=== PATIENT | male | born 1955 | race Caucasian/White ===

== ENCOUNTER 2017-06-21 13:44 | Inpatient (IN) | payer BC ==
[2017-06-21] MEDS ORDERED: HYDROmorphone 1 MG/ML Syringe IM ONE (13:56)
[2017-06-21] MEDS ORDERED: Ondansetron 4 MG/2 ML SDV IVPUSH ONE (13:56)
[2017-06-21] MEDS ORDERED: Sodium Chloride 0.9% 1,000 ML IV SCH (14:00)
[2017-06-21] MEDS ORDERED: Pantoprazole 40 MG Vial IVPUSH ONE (14:01)
--- NOTE | 2017-06-21 14:02 | EDM.PDOC ---
ED HPI GENERAL MEDICAL PROBLEM - General Chief Complaint: Abdominal Pain Stated Complaint: abdominal pain Time Seen by Provider: 06/21/17 13:51 - History of Present Illness INITIAL COMMENTS - FREE TEXT/NARRATIVE: HISTORY AND PHYSICAL: History of present illness: Patient 61-year-old white male who presents with concern abdominal pain and black and bloody stools over the last several days he has recently seen Dr. Vázquez who is going to schedule a upper endoscopy. He states the pain abdominal distention and nausea has gotten much worse. As stated previously over last several days he has had episodes of both black stools and bloody stools Review of systems: As per history of present illness and below otherwise all systems reviewed and negative. Past medical history: As per history of present illness and as reviewed below otherwise noncontributory. Surgical history: As per history of present illness and as reviewed below otherwise noncontributory. Social history: No reported history of drug or alcohol abuse. Family history: As per history of present illness and as reviewed below otherwise noncontributory. Physical exam: HEENT: Atraumatic, normocephalic, pupils reactive, significant conjunctival pallor no scleral icterus, mucous membranes moist, throat clear, neck supple, nontender, trachea midline. Lungs: Clear to auscultation, breath sounds equal bilaterally, chest nontender. Heart: S1S2, regular, negative for clicks, rubs, or JVD. Abdomen: Soft, nondistended, nontender. Negative for masses or hepatosplenomegaly. Negative for costovertebral tenderness. Pelvis: Stable nontender. Genitourinary: Deferred. Rectal: Deferred. Extremities: Atraumatic, negative for cords or calf pain. Neurovascular unremarkable. Neuro: Awake, alert, oriented. Cranial nerves II through XII unremarkable. Cerebellum unremarkable. Motor and sensory unremarkable throughout. Exam nonfocal. Diagnostics: CBC CMP PT/INR type and screen chest x-ray EKG CT abdomen and pelvis Therapeutics: Saline 1 L bolus Dilaudid 1 mg IV Zofran 4 mg IV Protonix 80 mg bolus followed by 8 mg an hour drip Impression: #1 acute GI bleed Definitive disposition and diagnosis as appropriate pending reevaluation and review of above. upper adbomen Pain Score (Numeric/FACES): 10 - Related Data Allergies Allergy/AdvReac Type Severity Reaction Status Date / Time pseudoephedrine Allergy Shaking Verified 06/21/17 13:47 [From Sudafed] Home Meds: Home Meds Omeprazole 20 mg PO BID 06/21/17 [History] Sucralfate 1 gm PO Q8HR 06/21/17 [History] ED ROS GENERAL - Review of Systems Review Of Systems: ROS reveals no pertinent complaints other than HPI. ED EXAM, GENERAL - Physical Exam Exam: See Below (See dictation) Course - Vital Signs Last Recorded V/S: Last Vital Signs Temp 36.7 C 06/21/17 13:48 Pulse 66 06/21/17 15:00 Resp 14 06/21/17 15:00 BP 123/80 06/21/17 15:00 Pulse Ox 96 06/21/17 15:00 - Orders/Labs/Meds Orders: Active Orders 24 hr Category Date Time Status EKG Documentation Completion [RC] STAT Care 06/21/17 14:03 Active EKG Documentation Completion [RC] STAT Care 06/21/17 14:03 Inactive Fecal Occult Blood Collection [RC] ASDIRECTED Care 06/21/17 14:03 Active Abdomen 1V Decubitis [CR] Stat Exams 06/21/17 14:41 Taken Abdomen Pelvis wo Cont [CT] Stat Exams 06/21/17 14:01 Taken Chest 1V Frontal [CR] Stat Exams 06/21/17 13:54 Taken Pantoprazole [ProTONIX IV] 80 mg Med 06/21/17 14:15 Active Sodium Chloride 0.9% [Normal Saline] 100 ml IV .Continuous Sodium Chloride 0.9% [Normal Saline] 1,000 ml Med 06/21/17 14:00 Active IV ASDIRECTED Medication Orders Sodium Chloride (Normal Saline) 1,000 mls @ 999 mls/hr IV ASDIRECTED JOSE D Last Admin: 06/21/17 14:01 Dose: 999 mls/hr Pantoprazole Sodium 80 mg/ (Sodium Chloride) 100 mls @ 10 mls/hr IV .Continuous JOSE D Last Admin: 06/21/17 15:00 Dose: 10 mls/hr Labs: Laboratory Tests 06/21/17 06/21/17 06/21/17 Range/Units 13:50 13:50 13:50 WBC 11.36 H (4.0-11.0) K/uL RBC 4.12 L (4.50-5.90) M/uL Hgb 11.8 L (13.0-17.0) g/dL Hct 35.0 L (38.0-50.0) % MCV 85.0 (80.0-98.0) fL MCH 28.6 (27.0-32.0) pg MCHC 33.7 (31.0-37.0) g/dL RDW Std Deviation 44.8 (28.0-62.0) fl RDW Coeff of Robb 15 (11.0-15.0) % Plt Count 274 (150-400) K/uL MPV 11.10 (7.40-12.00) fL Neut % (Auto) 76.0 (48.0-80.0) % Lymph % (Auto) 15.6 L (16.0-40.0) % [place] % (Auto) 7.8 (0.0-15.0) % Eos % (Auto) 0.4 (0.0-7.0) % Baso % (Auto) 0.2 (0.0-1.5) % Neut # (Auto) 8.6 H (1.4-5.7) K/uL Lymph # (Auto) 1.8 (0.6-2.4) K/uL [place] # (Auto) 0.9 H (0.0-0.8) K/uL Eos # (Auto) 0.0 (0.0-0.7) K/uL Baso # (Auto) 0.0 (0.0-0.1) K/uL Nucleated RBC % 0.0 /100WBC Nucleated RBCs # 0 K/uL INR 0.97 (0.86-1.11) Sodium 141 (136-146) mmol/L Potassium 4.1 (3.5-5.1) mmol/L Chloride 109 (98-110) mmol/L Carbon Dioxide 22 (21-31) mmol/L BUN 18 (6.0-23.0) mg/dL Creatinine 1.1 (0.6-1.5) mg/dL Est Cr Clr Drug Dosing 77.01 mL/min Estimated GFR (MDRD) > 60.0 ml/min Glucose 122 H (60-110) mg/dL Calcium 9.8 (8.8-10.8) mg/dL Total Bilirubin 0.6 (0.1-1.5) mg/dL AST 38 (5-40) IU/L ALT 25 (8-54) IU/L Alkaline Phosphatase 50 (40-150) Total Protein 7.4 (6.0-8.0) g/dL Albumin 4.4 (3.5-5.0) g/dL Globulin 3.0 (2.0-3.5) g/dL Albumin/Globulin Ratio 1.5 (1.3-2.8) Blood Type Antibody Screen 06/21/17 Range/Units 14:05 WBC (4.0-11.0) K/uL RBC (4.50-5.90) M/uL Hgb (13.0-17.0) g/dL Hct (38.0-50.0) % MCV (80.0-98.0) fL MCH (27.0-32.0) pg MCHC (31.0-37.0) g/dL RDW Std Deviation (28.0-62.0) fl RDW Coeff of Robb (11.0-15.0) % Plt Count (150-400) K/uL MPV (7.40-12.00) fL Neut % (Auto) (48.0-80.0) % Lymph % (Auto) (16.0-40.0) % [place] % (Auto) (0.0-15.0) % Eos % (Auto) (0.0-7.0) % Baso % (Auto) (0.0-1.5) % Neut # (Auto) (1.4-5.7) K/uL Lymph # (Auto) (0.6-2.4) K/uL [place] # (Auto) (0.0-0.8) K/uL Eos # (Auto) (0.0-0.7) K/uL Baso # (Auto) (0.0-0.1) K/uL Nucleated RBC % /100WBC Nucleated RBCs # K/uL INR (0.86-1.11) Sodium (136-146) mmol/L Potassium (3.5-5.1) mmol/L Chloride (98-110) mmol/L Carbon Dioxide (21-31) mmol/L BUN (6.0-23.0) mg/dL Creatinine (0.6-1.5) mg/dL Est Cr Clr Drug Dosing mL/min Estimated GFR (MDRD) ml/min Glucose (60-110) mg/dL Calcium (8.8-10.8) mg/dL Total Bilirubin (0.1-1.5) mg/dL AST (5-40) IU/L ALT (8-54) IU/L Alkaline Phosphatase (40-150) Total Protein (6.0-8.0) g/dL Albumin (3.5-5.0) g/dL Globulin (2.0-3.5) g/dL Albumin/Globulin Ratio (1.3-2.8) Blood Type O POSITIVE Antibody Screen NEGATIVE Meds: Medications Generic Name Dose Route Start Last Admin Trade Name Freq PRN Reason Stop Dose Admin Sodium Chloride 1,000 mls @ 999 mls/hr 06/21/17 14:00 06/21/17 14:01 Normal Saline IV 999 mls/hr ASDIRECTED JOSE D Administration Pantoprazole Sodium 80 mg/ 100 mls @ 10 mls/hr 06/21/17 14:15 06/21/17 15:00 Sodium Chloride IV 10 mls/hr .Continuous JOSE D Administration Discontinued Medications Generic Name Dose Route Start Last Admin Trade Name Freq PRN Reason Stop Dose Admin Hydromorphone HCl 1 mg 06/21/17 13:56 06/21/17 14:00 Dilaudid IM 06/21/17 13:57 1 mg ONETIME ONE Administration Ondansetron HCl 4 mg 06/21/17 13:56 06/21/17 14:00 Zofran IVPUSH 06/21/17 13:57 4 mg ONETIME ONE Administration Pantoprazole Sodium 80 mg 06/21/17 14:01 06/21/17 14:07 Protonix Iv IVPUSH 06/21/17 14:02 80 mg .BOLUS ONE Administration Departure - Departure Time of Disposition: 15:43 Disposition: Admitted As Inpatient 68 Condition: Good Clinical Impression: Abdominal pain, Small bowel obstruction, GI bleed - Discharge Information Referrals: Killian Do MD [Primary Care Provider] - Forms: ED Department Discharge - My Orders Last 24 Hours: My Active Orders 06/21/17 13:54 Chest 1V Frontal [CR] Stat 06/21/17 14:00 Sodium Chloride 0.9% [Normal Saline] 1,000 ml IV ASDIRECTED 06/21/17 14:01 Abdomen Pelvis wo Cont [CT] Stat 06/21/17 14:03 EKG Documentation Completion [RC] STAT EKG Documentation Completion [RC] STAT Fecal Occult Blood Collection [RC] ASDIRECTED 06/21/17 14:15 Pantoprazole [ProTONIX IV] 80 mg Sodium Chloride 0.9% [Normal Saline] 100 ml IV .Continuous 06/21/17 14:41 Abdomen 1V Decubitis [CR] Stat 06/21/17 15:40 Admission Status [Patient Status] [ADT] Stat - Assessment/Plan Last 24 Hours: My Active Orders 06/21/17 13:54 Chest 1V Frontal [CR] Stat 06/21/17 14:00 Sodium Chloride 0.9% [Normal Saline] 1,000 ml IV ASDIRECTED 06/21/17 14:01 Abdomen Pelvis wo Cont [CT] Stat 06/21/17 14:03 EKG Documentation Completion [RC] STAT EKG Documentation Completion [RC] STAT Fecal Occult Blood Collection [RC] ASDIRECTED 06/21/17 14:15 Pantoprazole [ProTONIX IV] 80 mg Sodium Chloride 0.9% [Normal Saline] 100 ml IV .Continuous 06/21/17 14:41 Abdomen 1V Decubitis [CR] Stat 06/21/17 15:40 Admission Status [Patient Status] [ADT] Stat
[2017-06-21] MEDS ORDERED: Pantoprazole 80 MG in Sodium Chloride 0.9% 100 ML IV SCH (14:15)
[2017-06-21 14:30] LABS: CHLORIDE,CL 109 mmol/L (98-110); SODIUM,NA 141 mmol/L (136-146)
[2017-06-21] MEDS ORDERED: Ondansetron 4 MG/2 ML SDV IVPUSH PRN (16:26)
[2017-06-21] MEDS ORDERED: HYDROmorphone 2 MG/ML Syringe IVPUSH PRN (16:26)
--- NOTE | 2017-06-21 16:43 | PCM.HP ---
H&P History of Present Illness - General Date of Service: 06/21/17 Admit Problem/Dx: SBO, abdominal pain Source of Information: Patient, Family ( and 2 daughters at bedside. ) History Limitations: Reports: No Limitations - History of Present Illness Initial Comments - Free Text/Narative: This 61 year old male with pmh of Miguel fundoplication 20 years ago otherwise healthy presented to the ED with one day history of abdominal pain and nausea. He reports he had black tarry diarrhea 1 week ago, he was seen by Dr. Do, his PCP, who had him test his stool, 2x positive for blood 1 x negative with an at home kit, his also reports he was noted to be anemic at his appointment. He was referred to Dr. Vázquez, General surgery, for EGD/ colonoscopy which he saw him yesterday and had none of these new concerns and was set up for the for endoscopy. He reports this pain to his upper abdomen started last evening, with a bloated feeling. He denied nausea or vomiting and had a normal BM yesterday. Today he went golfing at the simulator and just felt off along with abdominal pain and bloating. He left after 9 holes and got in his car and reported the worst sharp abdominal pain of his life. He got home and his called Dr. Do who urged him to be seen in the ED. In the ED, slight leukocytosis noted, 11,360, hgb 11.8, HCT 35. BMP WNL. CT of his abdomen/pelvis was obtained and revealed "Distal esophagus is distended and filled with fluid. There is post operative changes of the GE junction consistent with Miguel fundoplication. The stomach is dilated. There is a dilated small bowel with air and fluid. Frothy stool-like contents are seen in the small bowel in the right lower quadrant with a transition point Distal small bowel loops are tiny in caliber. The appendix is normal. There is minimal stool and gas throughout the remainder of the colon. There is some mild hazy density at the small bowel mesentery. There is no free air in abdomen. There is no free fluid the pelvis." NG was placed in the ED and in good position. He was give Dilaudid and zofran with good results. He became nauseated for the first time in the ED. Dr Quintanilla aware and consulted on patient. He will be admitted inpatient for SBO. I did call and update Dr. Vázquez, who was already update by Dr. Quintanilla. So he is aware of admission for SBO. upper adbomen Pain Score (Numeric/FACES): 4 - Related Data Allergies/Adverse Reactions: Allergies Allergy/AdvReac Type Severity Reaction Status Date / Time pseudoephedrine Allergy Shaking Verified 06/21/17 13:47 [From Sudafed] Home Medications: Home Meds Omeprazole 20 mg PO BID 06/21/17 [History] Sucralfate 1 gm PO Q8HR 06/21/17 [History] Past Medical History HEENT History: Reports: None Cardiovascular History: Reports: None. Denies: Afib, Blood Clots/VTE/DVT, CAD, Hypertension, [place] Respiratory History: Reports: None. Denies: Asthma, COPD, PE Gastrointestinal History: Reports: GERD (hx 20 years ago of Miguel procedure.) Genitourinary History: Reports: None. Denies: Chronic Renal Insuffiency Musculoskeletal History: Reports: None (back), Arthritis Neurological History: Reports: None Psychiatric History: Reports: None Endocrine/Metabolic History: Reports: Obesity/BMI 30+. Denies: Diabetes, Type II, Hypothyroidism Hematologic History: Reports: None Immunologic History: Reports: None Oncologic (Cancer) History: Reports: None Dermatologic History: Reports: None - Past Surgical History Head Surgeries/Procedures: Reports: None HEENT Surgical History: Reports: None Cardiovascular Surgical History: Reports: None Respiratory Surgical History: Reports: None GI Surgical History: Reports: Miguel Fundoplication (20 years ago.) Male Surgical History: Reports: None Endocrine Surgical History: Reports: None Neurological Surgical History: Reports: None Musculoskeletal Surgical History: Reports: None Oncologic Surgical History: Reports: None Dermatological Surgical History: Reports: None Social & Family History - Family History Family Medical History: Noncontributory - Tobacco Use Smoking Status *Q: Former Smoker (quit 15 + years ago) - Caffeine Use Caffeine Use: Reports: None - Alcohol Use Alcohol Use Frequency: Rarely - Recreational Drug Use Recreational Drug Use: No - Living Situation & Occupation Living situation: Reports: , with Spouse Occupation: Employed H&P Review of Systems - Review of Systems: Review Of Systems: See Below General: Reports: Diaphoresis (with severe pain). Denies: Fever, Chills, Malaise HEENT: Reports: No Symptoms. Denies: Headaches, Sore Throat, Vertigo, Visual Changes Pulmonary: Reports: No Symptoms. Denies: Shortness of Breath, Cough, Sputum Cardiovascular: Reports: No Symptoms. Denies: Chest Pain, Palpitations, Edema, Lightheadedness, Blood Pressure Problem Gastrointestinal: Reports: Abdominal Pain (epigastric and RUQ), Black Stool, Distension, Nausea. Denies: Flatus, Vomiting Genitourinary: Reports: No Symptoms. Denies: Dysuria, Frequency, Burning, Pain Psychiatric: Reports: No Symptoms. Denies: Confusion Hematologic/Lymphatic: Reports: Anemia (just recently found) Immunologic: Reports: No Symptoms Exam - Exam Exam: See Below - Vital Signs Vital Signs: Last Vital Signs Temp 98.0 F 06/21/17 13:48 Pulse 78 06/21/17 15:48 Resp 18 06/21/17 15:48 BP 115/79 06/21/17 15:48 Pulse Ox 100 06/21/17 15:48 Weight: 105.233 kg - Exam General: Alert, Oriented, Cooperative, Other (pale in appearance) HEENT: Conjunctiva Clear, Hearing Intact, Nares Patent, Posterior Pharynx Clear , Other (NG inserted and secured in R nare). No: Mucosa Moist & [place] (dry) Neck: Supple Lungs: Clear to Auscultation, Normal Respiratory Effort Cardiovascular: Regular Rate, Regular Rhythm, Normal S1, Normal S2 GI/Abdominal Exam: Soft, No Mass, Distended, Tender (epigastric and RUQ), Other (pink to bloody drainage noted in nearly inserted NG tube. ). No: Normal Bowel Sounds (hypoactive) Back Exam: Normal Inspection, Full Range of Motion, NT Extremities: Normal Inspection, Normal Range of Motion, Non-Tender, No Pedal Edema, Normal Capillary Refill Skin: Warm, Dry, Intact Neuro Extensive - Mental Status: Alert, Oriented x3, Normal Mood/Affect, Normal Cognition, Memory Intact Neuro Extensive - Motor, Sensory, Reflexes: CN II-XII Intact Psychiatric: Alert, Normal Affect, Normal Mood - Patient Data Result Diagrams: 06/21/17 13:50 06/21/17 13:50 *Q Meaningful Use (ADM) - VTE *Q VTE Criteria *Q: - Stroke *Q Stroke Criteria *Q: - AMI *Q AMI Criteria *Q: - Problem List (1) Small bowel obstruction SNOMED Code(s): 793322870 ICD Code: K56.609 - UNSP INTESTNL OBST, UNSP TO PARTIAL VERSUS COMPLETE OBST Status: Acute Current Visit: Yes (2) Abdominal pain SNOMED Code(s): 71622831 ICD Code: R10.9 - UNSPECIFIED ABDOMINAL PAIN Status: Acute Current Visit : Yes Qualifiers: Abdominal location: epigastric Qualified Code(s): R10.13 - Epigastric pain (3) GI bleed SNOMED Code(s): 95321126 ICD Code: K92.2 - GASTROINTESTINAL HEMORRHAGE, UNSPECIFIED Status: Acute Current Visit: Yes (4) History of Miguel fundoplication SNOMED Code(s): 140898264 ICD Code: Z98.890 - OTHER SPECIFIED POSTPROCEDURAL STATES Status: Chronic Current Visit: Yes Problem List Initiated/Reviewed/Updated: Yes Orders Last 24hrs: Active Orders 24 hr Category Date Time Status Ambulate [RC] ASDIRECTED Care 06/21/17 16:26 Active Antiembolic Devices [RC] PER UNIT ROUTINE Care 06/21/17 16:28 Active Nasogastric Tube Management [Gastrointestinal Tube Mgmt Care 06/21/17 16:35 Ordered ] [RC] ASDIRECTED Notify Provider Consults [RC] ASDIRECTED Care 06/21/17 16:31 Active Oxygen Therapy [RC] PRN Care 06/21/17 16:26 Active Up With Assistance [RC] ASDIRECTED Care 06/21/17 16:26 Active VTE/DVT Education [RC] PER UNIT ROUTINE Care 06/21/17 16:26 Active Vital Signs [RC] Q4H Care 06/21/17 16:26 Active Consult to Physician [CONS] Routine Cons 06/21/17 16:26 Active Nothing Per Oral Diet [DIET] Diet 06/22/17 Breakfast Active BASIC METABOLIC PANEL,BMP [CHEM] AM Lab 06/22/17 05:11 Ordered BASIC METABOLIC PANEL,BMP [CHEM] AM Lab 06/23/17 05:11 Ordered BASIC METABOLIC PANEL,BMP [CHEM] AM Lab 06/24/17 05:11 Ordered BASIC METABOLIC PANEL,BMP [CHEM] AM Lab 06/25/17 05:11 Ordered CBC WITH AUTO DIFF [HEME] AM Lab 06/22/17 05:11 Ordered CBC WITH AUTO DIFF [HEME] AM Lab 06/23/17 05:11 Ordered CBC WITH AUTO DIFF [HEME] AM Lab 06/24/17 05:11 Ordered CBC WITH AUTO DIFF [HEME] AM Lab 06/25/17 05:11 Ordered MAGNESIUM [CHEM] AM Lab 06/22/17 05:11 Ordered MAGNESIUM [CHEM] AM Lab 06/23/17 05:11 Ordered MAGNESIUM [CHEM] AM Lab 06/24/17 05:11 Ordered MAGNESIUM [CHEM] AM Lab 06/25/17 05:11 Ordered HYDROmorphone [Dilaudid] Med 06/21/17 16:35 Active 1 mg IVPUSH Q3H PRN Ondansetron [Zofran] Med 06/21/17 16:26 Active 4 mg IVPUSH Q4H PRN Sodium Chloride 0.9% [Normal Saline] 1,000 ml Med 06/21/17 16:30 Active IV ASDIRECTED Sequential Compression Device [OM.PC] Per Unit Routine Oth 06/21/17 16:27 Ordered Resuscitation Status Routine Resus Stat 06/21/17 16:26 Ordered Medication Orders Hydromorphone HCl (Dilaudid) 1 mg IVPUSH Q3H PRN PRN Reason: Pain (severe 7-10) Pantoprazole Sodium 80 mg/ (Sodium Chloride) 100 mls @ 10 mls/hr IV .Continuous JOSE D Last Admin: 06/21/17 15:00 Dose: 10 mls/hr Sodium Chloride (Normal Saline) 1,000 mls @ 125 mls/hr IV ASDIRECTED JOSE D Ondansetron HCl (Zofran) 4 mg IVPUSH Q4H PRN PRN Reason: Nausea Assessment/Plan Comment:: This 61 year old male admitted with SBO 1. SBO: Conservative therapy for now, with close monitoring. NG in place, will keep at LIWS for now. NS 125, bowel rest. Anti-emetics and analgesia ordered PRN. Surgery consulted, Dr Quintanilla will see this evening. Will follow her recommendations. 2. GI bleed: Continue Protonix gtt at this time. Will obtain hemoccult. VTE prophyalxis: SCDs and ambulation only, due to current GI bleed. Dispo: 3-4 days
[2017-06-21] MEDS: HYDROmorphone 1 MG/ML Syringe IVPUSH PRN ×2 (16:52→21:15)
[2017-06-21] MEDS: Sodium Chloride 0.9% 1,000 ML IV SCH (16:59)
--- NOTE | 2017-06-21 18:32 | CR ---
EXAM DATE: 06/21/17 PATIENT'S AGE: 61 Patient: CINTHYA QUARLES Facility: [place], [place] Site . Site : 1955 Study: XRay Chest [id number]/22/2017 2:30:01 PM Ordering Physician: Mandi Duron Final Report: INDICATIONS: Pale. Checking air/fluid levels. TECHNIQUE: Chest 1 AP view. COMPARISON: None FINDINGS: No pneumothorax or pleural effusion. Mild interstitial and nodular opacities at the right lung base. The lungs are otherwise clear. Mild enlargement of the cardiac silhouette. Mediastinal contours are otherwise within normal limits. No definite pulmonary edema. Multiple surgical clips noted in the left upper quadrant. Prominent gas-filled bowel, of uncertain etiology and significance in the visualized upper abdomen. Bony thorax is unremarkable. IMPRESSION: Interstitial and nodular opacities at the right lung base may represent acute infectious/inflammatory change in the appropriate clinical setting. These could also be chronic. No comparison study available. Prominent gas-filled bowel in the visualized upper abdomen, of uncertain significance. Dictated by Meir Alberto MD @ 06/21/2017 2:45:31 PM Dictated by: Meir Alberto MD @ 06/21/2017 14:46:02 (Electronic Signature) Report Signed by Proxy. [facility]ITAL[facility]
--- NOTE | 2017-06-21 18:34 | CT ---
EXAM DATE: 06/21/17 PATIENT'S AGE: 61 Patient: CINTHYA QUARLES Facility: [place], [place] Site . Site : 1955 Study: CT Abdomen/Pelvis [id number]/22/[id number] 2:51:04 PM Ordering Physician: Mandi Duron Final Report: HISTORY: Upper abdominal pain. Bloody stool. TECHNIQUE: The abdomen and pelvis were scanned using helical technique at 3 mm intervals without IV contrast. Sagittal and coronal reconstructions were performed. FINDINGS: Lung bases: There is interlobular septal thickening in the right lower lobe with a trace right pleural effusion. Liver and gallbladder: The unenhanced liver is homogeneous. No calcified gallstones. Spleen, pancreas and adrenal glands: Unremarkable. Kidneys and bladder: No calcified urolithiasis or hydronephrosis. The bladder is incompletely distended and unremarkable. Retroperitoneum and lymph nodes: The abdominal aorta is normal in caliber. No pathologic periaortic adenopathy seen. GI tract: Distal esophagus is distended and filled with fluid. There is post operative changes of the GE junction consistent with Miguel fundoplication. The stomach is dilated. There is a dilated small bowel with air and fluid. Frothy stool-like contents are seen in the small bowel in the right lower quadrant with a transition point on image 127. Distal small bowel loops are tiny in caliber. The appendix is normal. There is minimal stool and gas throughout the remainder of the colon. There is some mild hazy density at the small bowel mesentery. There is no free air in abdomen. There is no free fluid the pelvis. Pelvic organ: Prostate is normal. Osseous structures: Vertebral body heights maintained within the lumbar spine. No suspicious lytic or blastic lesions are seen. IMPRESSION: 1. Interlobular septal thickening right lower lobe suggesting asymmetric pulmonary edema with trace right pleural effusion. 2. Postoperative changes the GE junction consistent with Miguel fundoplication. 3. Dilated stomach and small bowel with a transition point in the right lower quadrant consistent with small bowel obstruction. There is a small amount of mesenteric edema present. 4. Normal appendix. No evidence of diverticulitis. Dictated by Pilar Hernandez MD @ 06/21/2017 3:10:20 PM Dictated by: Pilar Hernandez MD @ 06/21/2017 15:11:29 (Electronic Signature) Report Signed by Proxy. [facility]
--- NOTE | 2017-06-21 18:35 | CR ---
EXAM DATE: 06/21/17 PATIENT'S AGE: 61 Patient: CINTHYA QUARLES Facility: [place], [place] Site . Site : 1955 Study: XRay Abdomen LEFT LAT DECUB [id number]/22/[id number] 3:05:25 PM Ordering Physician: Mandi Duron Final Report: Indication: Abdominal pain. GI bleed. Technique: Abdomen, 2 left lateral decubitus views. Comparison: CT abdomen and pelvis 10/20/2016. Findings: Multiple dilated fluid-filled small bowel loops with associated air-fluid levels , consistent with obstruction. No free intraperitoneal gas. Multiple surgical clips in the upper abdomen. The soft tissues elsewhere as imaged are unremarkable. Impression: Small bowel obstruction. No free intraperitoneal gas. Dictated by Meir Alberto MD @ 06/21/2017 3:25:06 PM Dictated by: Meir Alberto MD @ 06/21/2017 15:25:19 (Electronic Signature) Report Signed by Proxy. [facility]
--- NOTE | 2017-06-21 18:36 | CR ---
EXAM DATE: 06/21/17 PATIENT'S AGE: 61 Patient: CINTHYA QUARLES Facility: [place], [place] Site . Site : 1955 Study: XRay Abdomen [id number]/22/2017 4:09:40 PM Ordering Physician: Mandi Duron Final Report: HISTORY: NG tube placement. FINDINGS: A single portable radiograph of the lower left chest and upper abdomen demonstrates an NG tube with the tip beyond the GE junction and in the proximal stomach. Surgical clips are seen at the epigastrium and right upper quadrant. There is gaseous distention of stomach and small bowel. IMPRESSION: NG tube in place with the tip distal to the GE junction and in the proximal stomach. Dictated by Pilar Hernandez MD @ 06/21/2017 4:26:04 PM Dictated by: Pilar Hernandez MD @ 06/21/2017 16:26:12 (Electronic Signature) Report Signed by Proxy. [facility]
--- NOTE | 2017-06-21 20:23 | PCM.CONS ---
H&P History of Present Illness - General Date of Service: 06/21/17 Admit Problem/Dx: SBO, abdominal pain Source of Information: Patient History Limitations: Reports: No Limitations - History of Present Illness Initial Comments - Free Text/Narative: Patient is a 61 year old male who presents with a small bowel obstruction. He developed melena earlier this month and was found to be mildly anemia. He was seen by Dr. Vázquez Jun 20 and scheduled for a diagnostic EGD and colonoscopy. He woke up the next morning and developed sharp abdominal pain and distension. He had a BM that morning and was passing gas until he presented to the ED. He denies melena with the last several BMs. Work up revealed slight anemia and leukocytosis. A CT of the abdomen revealed a small bowel obstruction with distension of the stomach and proximal bowel. His history is significant for a Lily Fundoplication and he cannot burp. An NG was placed and the patient 's pain and distension improved greatly. Overnight he has had a BM and continues to be passing gas. upper adbomen Pain Score (Numeric/FACES): 4 - Related Data Allergies/Adverse Reactions: Allergies Allergy/AdvReac Type Severity Reaction Status Date / Time pseudoephedrine Allergy Shaking Verified 06/21/17 13:47 [From [facility]] Home Medications: Home Meds Omeprazole 40 mg PO DAILY 06/21/17 [History] Sucralfate 1 gm PO Q8HR 06/21/17 [History] Past Medical History HEENT History: Reports: None Cardiovascular History: Reports: None. Denies: Afib, Blood Clots/VTE/DVT, CAD, Hypertension, [place] Respiratory History: Reports: None. Denies: Asthma, COPD, PE Gastrointestinal History: Reports: GERD (hx 20 years ago of Lily procedure.) Genitourinary History: Reports: None. Denies: Chronic Renal Insuffiency Musculoskeletal History: Reports: None (back), Arthritis Neurological History: Reports: None Psychiatric History: Reports: None Endocrine/Metabolic History: Reports: Obesity/BMI 30+. Denies: Diabetes, Type II, Hypothyroidism Hematologic History: Reports: None Immunologic History: Reports: None Oncologic (Cancer) History: Reports: None Dermatologic History: Reports: None - Past Surgical History Head Surgeries/Procedures: Reports: None HEENT Surgical History: Reports: None Cardiovascular Surgical History: Reports: None Respiratory Surgical History: Reports: None GI Surgical History: Reports: Lily Fundoplication (20 years ago.) Male Surgical History: Reports: None Endocrine Surgical History: Reports: None Neurological Surgical History: Reports: None Musculoskeletal Surgical History: Reports: None Oncologic Surgical History: Reports: None Dermatological Surgical History: Reports: None Social & Family History - Family History Family Medical History: Noncontributory - Tobacco Use Smoking Status *Q: Former Smoker (quit 15 + years ago) Second Hand Smoke Exposure: No - Caffeine Use Caffeine Use: Reports: None - Recreational Drug Use Recreational Drug Use: No - Living Situation & Occupation Living situation: Reports: , with Spouse Occupation: Employed H&P Review of Systems - Review of Systems: Review Of Systems: ROS reveals no pertinent complaints other than HPI. Exam - Exam Exam: See Below - Vital Signs Vital Signs: Last Vital Signs Temp 36.2 C 06/21/17 16:50 Pulse 89 06/21/17 16:50 Resp 18 06/21/17 16:50 BP 112/68 06/21/17 16:50 Pulse Ox 99 06/21/17 16:50 Weight: 105.233 kg - Exam Quality Assessment: Supplemental Oxygen General: Alert, Oriented HEENT: Conjunctiva Clear, EACs Clear Neck: Supple, Trachea Midline Lungs: Clear to Auscultation, Normal Respiratory Effort Cardiovascular: Regular Rate, Regular Rhythm GI/Abdominal Exam: Soft, Non-Tender, No Distention, No Mass Back Exam: Normal Inspection, Full Range of Motion Extremities: Normal Inspection, Normal Range of Motion, Non-Tender - Patient Data Lab Results Last 24 hrs: Laboratory Results - last 24 hr 06/21/17 Range/Units 17:40 Lactate 1.1 (0.20-2.00) mmol/L Result Diagrams: 06/22/17 05:48 06/22/17 05:48 Consult PN Assessment/Plan (1) Abdominal pain SNOMED Code(s): 02095844 Code(s): R10.9 - UNSPECIFIED ABDOMINAL PAIN Current Visit: Yes Qualifiers: Abdominal location: epigastric Qualified Code(s): R10.13 - Epigastric pain (2) GI bleed SNOMED Code(s): 56984673 Code(s): K92.2 - GASTROINTESTINAL HEMORRHAGE, UNSPECIFIED Current Visit: Yes (3) Small bowel obstruction SNOMED Code(s): 153806735 Code(s): K56.609 - UNSP INTESTNL OBST, UNSP TO PARTIAL VERSUS COMPLETE OBST Current Visit: Yes (4) History of Lily fundoplication SNOMED Code(s): 730227751 Code(s): Z98.890 - OTHER SPECIFIED POSTPROCEDURAL STATES Current Visit: Yes Problem List Initiated/Reviewed/Updated: Yes Plan: He appears to have improved significantly overnight. The patient most likely had a partial small bowel obstruction, but due to his lily fundoplication he was unable to belch or vomit. Now that he has been decompressed he is doing much better. Dr. Vázquez came by and visited with the patient as well this morning. He is scheduled this next week for diagnostic scopes and we agreed that he should proceed with this. Plan: -Clamp NG this morning. Gave patient water to drink. If he tolerates this then NG can be pulled in 2 hours. -If NG is pulled advance diet as tolerated. Will sign off at this time. Please call with any questions or concerns. Follow up with Dr. Vázquez during scopes this week.
[2017-06-22] MEDS: Sodium Chloride 0.9% 1,000 ML IV SCH ×2 (00:28→08:25)
[2017-06-22] MEDS: Pantoprazole 80 MG in Sodium Chloride 0.9% 100 ML IV SCH ×2 (04:32→15:38)
[2017-06-22 06:33] LABS: CHLORIDE,CL 114 mmol/L (98-110); SODIUM,NA 143 mmol/L (136-146)
--- NOTE | 2017-06-22 07:30 | PCM.PN ---
- General Info Date of Service: 06/22/17 Admission Dx/Problem (Free Text): SBO, abdominal pain Subjective Update: Patient feeling much better this am. Has been passing large amounts of gas this morning and did have a bowl movement. Denies any pain or blood stool. Sleep well last night. Strong appetite. Denies chest pain, palpitations. Functional Status: Reports: Pain Controlled - Review of Systems General: Denies: Fever, Weakness, Fatigue, Malaise HEENT: Denies: Dysphasia, Headaches, Visual Changes Pulmonary: Denies: Shortness of Breath, Hemoptysis Cardiovascular: Denies: Chest Pain, Palpitations, Edema Gastrointestinal: Reports: Flatus. Denies: Abdominal Pain, Hematochezia, Melena , Nausea, Vomiting Genitourinary: Denies: Dysuria, Hematuria Musculoskeletal: Denies: Neck Pain, Leg Pain Skin: Denies: Cyanosis Neurological: Denies: Confusion, Dizziness, Headache Psychiatric: Denies: Confusion - Patient Data Vitals - Most Recent: Last Vital Signs Temp 97.1 F 06/22/17 04:00 Pulse 67 06/22/17 04:00 Resp 18 06/22/17 04:00 BP 116/65 06/22/17 04:00 Pulse Ox 95 06/22/17 04:00 Weight - Most Recent: 105.233 kg I&O - Last 24 Hours: Intake & Output 06/21/17 06/22/17 06/22/17 22:59 06:59 14:59 Intake Total 1487 Output Total 850 Balance 637 Lab Results Last 24 Hours: Laboratory Results - last 24 hr 06/21/17 06/22/17 06/22/17 Range/Units 17:40 05:48 05:48 WBC 3.75 L (4.0-11.0) K/uL RBC 3.24 L (4.50-5.90) M/uL Hgb 9.0 L (13.0-17.0) g/dL Hct 28.0 L (38.0-50.0) % MCV 86.4 (80.0-98.0) fL MCH 27.8 (27.0-32.0) pg MCHC 32.1 (31.0-37.0) g/dL RDW Std Deviation 46.1 (28.0-62.0) fl RDW Coeff of Robb 15 (11.0-15.0) % Plt Count 186 (150-400) K/uL MPV 10.90 (7.40-12.00) fL Neut % (Auto) 65.8 (48.0-80.0) % Lymph % (Auto) 19.5 (16.0-40.0) % [place] % (Auto) 12.5 (0.0-15.0) % Eos % (Auto) 1.9 (0.0-7.0) % Baso % (Auto) 0.3 (0.0-1.5) % Neut # (Auto) 2.5 (1.4-5.7) K/uL Lymph # (Auto) 0.7 (0.6-2.4) K/uL [place] # (Auto) 0.5 (0.0-0.8) K/uL Eos # (Auto) 0.1 (0.0-0.7) K/uL Baso # (Auto) 0.0 (0.0-0.1) K/uL Nucleated RBC % 0.0 /100WBC Nucleated RBCs # 0 K/uL Lactate 1.1 (0.20-2.00) mmol/L Sodium 143 (136-146) mmol/L Potassium 3.8 (3.5-5.1) mmol/L Chloride 114 H (98-110) mmol/L Carbon Dioxide 21 (21-31) mmol/L BUN 19 (6.0-23.0) mg/dL Creatinine 0.9 (0.6-1.5) mg/dL Est Cr Clr Drug Dosing 94.13 mL/min Estimated GFR (MDRD) > 60.0 ml/min Glucose 103 (60-110) mg/dL Calcium 7.8 L (8.8-10.8) mg/dL Magnesium 1.5 (1.5-2.3) mEq/L Carlos Results Last 24 Hours: Microbiology 06/22/17 03:30 Stool Occult Blood (CARLOS) - Final Stool / Feces NEGATIVE OCCULT BLOOD Med Orders - Current: Current Medications Hydromorphone HCl (Dilaudid) 1 mg IVPUSH Q3H PRN PRN Reason: Pain (severe 7-10) Last Admin: 06/21/17 21:15 Dose: 1 mg Sodium Chloride (Normal Saline) 1,000 mls @ 125 mls/hr IV ASDIRECTED COUNTS INCLUDE 234 BEDS AT THE [facility] Last Admin: 06/22/17 00:28 Dose: 125 mls/hr Pantoprazole Sodium 80 mg/ (Sodium Chloride) 100 mls @ 10 mls/hr IV Q10H JOSE D Last Admin: 06/22/17 04:32 Dose: 10 mls/hr Ondansetron HCl (Zofran) 4 mg IVPUSH Q4H PRN PRN Reason: Nausea Discontinued Medications Hydromorphone HCl (Dilaudid) 1 mg IM ONETIME ONE Stop: 06/21/17 13:57 Last Admin: 06/21/17 14:00 Dose: 1 mg Hydromorphone HCl (Dilaudid) 1 mg IVPUSH Q3H PRN PRN Reason: Pain (severe 7-10) Sodium Chloride (Normal Saline) 1,000 mls @ 999 mls/hr IV ASDIRECTED COUNTS INCLUDE 234 BEDS AT THE [facility] Last Admin: 06/21/17 14:01 Dose: 999 mls/hr Pantoprazole Sodium 80 mg/ (Sodium Chloride) 100 mls @ 10 mls/hr IV .Continuous COUNTS INCLUDE 234 BEDS AT THE [facility] Last Admin: 06/21/17 15:00 Dose: 10 mls/hr Ondansetron HCl (Zofran) 4 mg IVPUSH ONETIME ONE Stop: 06/21/17 13:57 Last Admin: 06/21/17 14:00 Dose: 4 mg Pantoprazole Sodium (Protonix Iv) 80 mg IVPUSH .BOLUS ONE Stop: 06/21/17 14:02 Last Admin: 06/21/17 14:07 Dose: 80 mg - Exam Quality Assessment: DVT Prophylaxis General: Alert, Oriented, Cooperative, No Acute Distress HEENT: Pupils Equal, Pupils Reactive, EOMI, Mucous Membr. Moist/Broussard Neck: Supple, Trachea Midline Lungs: Clear to Auscultation, Normal Respiratory Effort. No: Crackles, Wheezing Cardiovascular: Regular Rate, Regular Rhythm, No Murmurs GI/Abdominal Exam: Normal Bowel Sounds, Soft, Non-Tender, No Organomegaly, No Distention. No: Guarding, Rigid, Rebound, Tender Extremities: Normal Inspection, Non-Tender, No Pedal Edema, Normal Capillary Refill Peripheral Pulses: 2+: Radial (L), Radial (R), Posterior Tibial (L), Posterior Tibial (R), Dorsalis Pedis (L), Dorsalis Pedis (R) Skin: Warm, Dry, Intact Wound/Incisions: Healing Well Neurological: No New Focal Deficit Psy/Mental Status: Alert, Normal Affect, Normal Mood - Problem List & Annotations (1) Abdominal pain SNOMED Code(s): 26095909 Code(s): R10.9 - UNSPECIFIED ABDOMINAL PAIN Status: Resolved Priority: High Current Visit: Yes Qualifiers: Abdominal location: epigastric Qualified Code(s): R10.13 - Epigastric pain (2) GI bleed SNOMED Code(s): 47912271 Code(s): K92.2 - GASTROINTESTINAL HEMORRHAGE, UNSPECIFIED Status: Resolved Priority: High Current Visit: Yes Qualifiers: GI bleed type/associated pathology: melena Qualified Code(s): K92.1 - Melena (3) Small bowel obstruction SNOMED Code(s): 051165516 Code(s): K56.609 - UNSP INTESTNL OBST, UNSP TO PARTIAL VERSUS COMPLETE OBST Status: Resolved Priority: High Current Visit: Yes (4) History of Miguel fundoplication SNOMED Code(s): 234677181 Code(s): Z98.890 - OTHER SPECIFIED POSTPROCEDURAL STATES Status: Chronic Priority: Medium Current Visit: Yes - Problem List Review Problem List Initiated/Reviewed/Updated: Yes - My Orders Last 24 Hours: My Active Orders 06/22/17 04:30 Pantoprazole [ProTONIX IV] 80 mg Sodium Chloride 0.9% [Normal Saline] 100 ml IV Q10H - Plan Plan:: 61 year old male admitted 06/21/17 for SBO with no significant pmh. 1. SBO: Abdomin soft and notender this am. Passing gas and did have one bowel movement this am. Surgery has seen patient and clamped NG tube. Will start clear liquids this am. If patient tolerates will remove NG and progress diet. If still doing well may be discharged home tonight with scheduled follow-up with Dr. Vázquez. 2. GI bleed: Hemacult was negative but recently had positive will Continue Protonix gtt at this time. VTE prophyalxis: SCDs and ambulation only, due to current GI bleed. Dispo: Possible this evening or tomorrow if continues to progress.
--- NOTE | 2017-06-22 11:45 | PCM.PN ---
- General Info Date of Service: 06/22/17 - Patient Data Vitals - Most Recent: Last Vital Signs Temp 98.1 F 06/22/17 08:00 Pulse 76 06/22/17 08:00 Resp 18 06/22/17 08:00 BP 102/67 06/22/17 08:00 Pulse Ox 76 L 06/22/17 08:00 Weight - Most Recent: 105.233 kg I&O - Last 24 Hours: Intake & Output 06/21/17 06/22/17 06/22/17 22:59 06:59 14:59 Intake Total 1487 Output Total 850 Balance 637 Lab Results Last 24 Hours: Laboratory Results - last 24 hr 06/21/17 06/22/17 06/22/17 Range/Units 17:40 05:48 05:48 WBC 3.75 L (4.0-11.0) K/uL RBC 3.24 L (4.50-5.90) M/uL Hgb 9.0 L (13.0-17.0) g/dL Hct 28.0 L (38.0-50.0) % MCV 86.4 (80.0-98.0) fL MCH 27.8 (27.0-32.0) pg MCHC 32.1 (31.0-37.0) g/dL RDW Std Deviation 46.1 (28.0-62.0) fl RDW Coeff of Robb 15 (11.0-15.0) % Plt Count 186 (150-400) K/uL MPV 10.90 (7.40-12.00) fL Neut % (Auto) 65.8 (48.0-80.0) % Lymph % (Auto) 19.5 (16.0-40.0) % [place] % (Auto) 12.5 (0.0-15.0) % Eos % (Auto) 1.9 (0.0-7.0) % Baso % (Auto) 0.3 (0.0-1.5) % Neut # (Auto) 2.5 (1.4-5.7) K/uL Lymph # (Auto) 0.7 (0.6-2.4) K/uL [place] # (Auto) 0.5 (0.0-0.8) K/uL Eos # (Auto) 0.1 (0.0-0.7) K/uL Baso # (Auto) 0.0 (0.0-0.1) K/uL Nucleated RBC % 0.0 /100WBC Nucleated RBCs # 0 K/uL Lactate 1.1 (0.20-2.00) mmol/L Sodium 143 (136-146) mmol/L Potassium 3.8 (3.5-5.1) mmol/L Chloride 114 H (98-110) mmol/L Carbon Dioxide 21 (21-31) mmol/L BUN 19 (6.0-23.0) mg/dL Creatinine 0.9 (0.6-1.5) mg/dL Est Cr Clr Drug Dosing 94.13 mL/min Estimated GFR (MDRD) > 60.0 ml/min Glucose 103 (60-110) mg/dL Calcium 7.8 L (8.8-10.8) mg/dL Magnesium 1.5 (1.5-2.3) mEq/L Carlos Results Last 24 Hours: Microbiology 06/22/17 03:30 Stool Occult Blood (CARLOS) - Final Stool / Feces NEGATIVE OCCULT BLOOD Med Orders - Current: Current Medications Hydromorphone HCl (Dilaudid) 1 mg IVPUSH Q3H PRN PRN Reason: Pain (severe 7-10) Last Admin: 06/21/17 21:15 Dose: 1 mg Sodium Chloride (Normal Saline) 1,000 mls @ 125 mls/hr IV ASDIRECTED [facility] Last Admin: 06/22/17 08:25 Dose: 125 mls/hr Pantoprazole Sodium 80 mg/ (Sodium Chloride) 100 mls @ 10 mls/hr IV Q10H [facility] Last Admin: 06/22/17 04:32 Dose: 10 mls/hr Ondansetron HCl (Zofran) 4 mg IVPUSH Q4H PRN PRN Reason: Nausea Discontinued Medications Hydromorphone HCl (Dilaudid) 1 mg IM ONETIME ONE Stop: 06/21/17 13:57 Last Admin: 06/21/17 14:00 Dose: 1 mg Hydromorphone HCl (Dilaudid) 1 mg IVPUSH Q3H PRN PRN Reason: Pain (severe 7-10) Sodium Chloride (Normal Saline) 1,000 mls @ 999 mls/hr IV ASDIRECTED [facility] Last Admin: 06/21/17 14:01 Dose: 999 mls/hr Pantoprazole Sodium 80 mg/ (Sodium Chloride) 100 mls @ 10 mls/hr IV .Continuous [facility] Last Admin: 06/21/17 15:00 Dose: 10 mls/hr Ondansetron HCl (Zofran) 4 mg IVPUSH ONETIME ONE Stop: 06/21/17 13:57 Last Admin: 06/21/17 14:00 Dose: 4 mg Pantoprazole Sodium (Protonix Iv) 80 mg IVPUSH .BOLUS ONE Stop: 06/21/17 14:02 Last Admin: 06/21/17 14:07 Dose: 80 mg - My Orders Last 24 Hours: My Active Orders 06/22/17 04:30 Pantoprazole [ProTONIX IV] 80 mg Sodium Chloride 0.9% [Normal Saline] 100 ml IV Q10H - Plan Plan:: This 61 year old male admitted with SBO 1. SBO: Conservative therapy for now, with close monitoring. NG in place, will keep at [facility] for now. NS 125, bowel rest. Anti-emetics and analgesia ordered PRN. Surgery consulted, Dr Quintanilla will see this evening. Will follow her recommendations. 2. GI bleed: Continue Protonix gtt at this time. Will obtain hemoccult. VTE prophyalxis: SCDs and ambulation only, due to current GI bleed. Dispo: 3-4 days
--- NOTE | 2017-06-22 17:54 | PCM.DCSUM1 ---
Discharge Summary - Hospital Course HPI Initial Comments: 61 year old male admitted 06/21/17 for SBO with pmh of Miguel fundoplication. Brief History: 61 year old male with pmh of Miguel fundoplication 20 years ago otherwise healthy presented to ED with one day history of abdominal pain and nausea. He reported that he had black tarry diarrhea 1 week ago, he was seen by Dr. Do, his PCP, who had him test his stool, 2x positive for blood 1 x negative with an at home kit, his also reported he was noted to be anemic at his appointment. He was referred to Dr. Vázquez, General surgery, for EGD/ colonoscopy which saw him day before admission and had none of these new concerns and was set up for the for endoscopy. He reported pain to his upper abdomen started evening previous, with a bloated feeling. He denied nausea or vomiting and had a normal BM the previous day. On day of admission, he went golfing at the simulator and just felt off along with abdominal pain and bloating. He left after 9 holes and got in his car and reported the worst sharp abdominal pain of his life. He got home and his called Dr. Do who urged him to be seen in the ED. - Discharge Data Discharge Date: 06/22/17 Discharge Disposition: Home, Self-Care 01 Condition: Good - Discharge Diagnosis/Problem(s) (1) Abdominal pain SNOMED Code(s): 28163898 ICD Code: R10.9 - UNSPECIFIED ABDOMINAL PAIN Status: Resolved Priority: High Current Visit: Yes Qualifiers: Abdominal location: epigastric Qualified Code(s): R10.13 - Epigastric pain (2) GI bleed SNOMED Code(s): 24626659 ICD Code: K92.2 - GASTROINTESTINAL HEMORRHAGE, UNSPECIFIED Status: Resolved Priority: High Current Visit: Yes Qualifiers: GI bleed type/associated pathology: melena Qualified Code(s): K92.1 - Melena (3) Small bowel obstruction SNOMED Code(s): 851169315 ICD Code: K56.609 - UNSP INTESTNL OBST, UNSP TO PARTIAL VERSUS COMPLETE OBST Status: Resolved Priority: High Current Visit: Yes (4) History of Miguel fundoplication SNOMED Code(s): 698654205 ICD Code: Z98.890 - OTHER SPECIFIED POSTPROCEDURAL STATES Status: Chronic Priority: Medium Current Visit: Yes - Patient Summary/Data Consults: Consultations 06/21/17 16:26 Consult to Physician [CONS] Routine Hospital Course: In the ED, slight leukocytosis noted, 11,360, hgb 11.8, HCT 35. BMP WNL. CT of his abdomen/pelvis was obtained and revealed "Distal esophagus distended and filled with fluid. There was post operative changes of the GE junction consistent with Miguel fundoplication. Stomach was dilated and there was a dilated small bowel with air and fluid. Frothy stool-like contents were seen in the small bowel in the right lower quadrant with a transition point Distal small bowel loops tiny in caliber. Appendix was normal. There was minimal stool and gas throughout the remainder of the colon. There also was some mild hazy density at the small bowel mesentery. No free air in abdomen or pelvis. NG was placed in the ED and in good position. He was given Dilaudid and zofran with good results. He became nauseated for the first time in the ED. Dr Quintanilla, surgeon, was aware and consulted on patient. Dr. Vázquez, was also called and updated on the patient. Patient had good relief with NG tube and on morning after admission had flatus and bowel movements. This continued throughout the day and Dr. Walker removed NG tube and diet was advanced. Patient tolerated diet well and was cleared by surgery, Dr. Walker to be discharged with scheduled follow-up with Dr. Vázquez on 06/27/17. - Patient Instructions Diet: GI Soft/Low Residue/Low Fiber Activity: Rest and Relax Today Driving: Do Not Drive Showering/Bathing: May Shower Notify Provider of: Fever, Increased Pain, Nausea and/or Vomiting - Discharge Plan Home Medications: Home Meds Omeprazole 40 mg PO DAILY 06/21/17 [History] Sucralfate 1 gm PO Q8HR 06/21/17 [History] Forms: ED Department Discharge Referrals: Killian Do MD [Primary Care Provider] - - Discharge Summary/Plan Comment DC Time >30 min.: Yes Discharge Summary/Plan Comment: 61 year old male admitted 06/21/17 for SBO with pmh of Miguel fundoplication. 61 year old male with pmh of Miguel fundoplication 20 years ago otherwise healthy presented to ED with one day history of abdominal pain and nausea. He reported that he had black tarry diarrhea 1 week ago, he was seen by Dr. Do, his PCP, who had him test his stool, 2x positive for blood 1 x negative with an at home kit, his also reported he was noted to be anemic at his appointment. He was referred to Dr. Vázquez, General surgery, for EGD/ colonoscopy which saw him day before admission and had none of these new concerns and was set up for the for endoscopy. He reported pain to his upper abdomen started evening previous, with a bloated feeling. He denied nausea or vomiting and had a normal BM the previous day. On day of admission, he went golfing at the simulator and just felt off along with abdominal pain and bloating. He left after 9 holes and got in his car and reported the worst sharp abdominal pain of his life. He got home and his called Dr. Do who urged him to be seen in the ED. In the ED, slight leukocytosis noted, 11,360, hgb 11.8, HCT 35. BMP WNL. CT of his abdomen/pelvis was obtained and revealed "Distal esophagus distended and filled with fluid. There was post operative changes of the GE junction consistent with Miguel fundoplication. Stomach was dilated and there was a dilated small bowel with air and fluid. Frothy stool-like contents were seen in the small bowel in the right lower quadrant with a transition point Distal small bowel loops tiny in caliber. Appendix was normal. There was minimal stool and gas throughout the remainder of the colon. There also was some mild hazy density at the small bowel mesentery. No free air in abdomen or pelvis. NG was placed in the ED and in good position. He was given Dilaudid and zofran with good results. He became nauseated for the first time in the ED. Dr Quintanilla, surgeon, was aware and consulted on patient. Dr. Vázquez, was also called and updated on the patient. Patient had good relief with NG tube and on morning after admission had flatus and bowel movements. This continued throughout the day and Dr. Walker removed NG tube and diet was advanced. Patient tolerated diet well and was cleared by surgery, Dr. Walker to be discharged with scheduled follow-up with Dr. Vázquez on 06/27/17. The rest of the patient's stay was uneventful and he was discharged in good condition. He was instucted to continue to slowly increase diet and return to ED if he had any return of symptoms. He was also instructed to continue his omeprazole and sucralfate as previously prescribed and follow-up with scheduled appointment with Dr. Vázquez. - Patient Data Vitals - Most Recent: Last Vital Signs Temp 98.3 F 06/22/17 15:58 Pulse 73 06/22/17 15:58 Resp 18 06/22/17 15:58 BP 116/66 06/22/17 15:58 Pulse Ox 95 06/22/17 15:58 Weight - Most Recent: 105.233 kg I&O - Last 24 hours: Intake & Output 06/22/17 06/22/17 06/22/17 06:59 14:59 22:59 Intake Total 1487 Output Total 850 Balance 637 Lab Results - Last 24 hrs: Laboratory Results - last 24 hr 06/22/17 06/22/17 Range/Units 05:48 05:48 WBC 3.75 L (4.0-11.0) K/uL RBC 3.24 L (4.50-5.90) M/uL Hgb 9.0 L (13.0-17.0) g/dL Hct 28.0 L (38.0-50.0) % MCV 86.4 (80.0-98.0) fL MCH 27.8 (27.0-32.0) pg MCHC 32.1 (31.0-37.0) g/dL RDW Std Deviation 46.1 (28.0-62.0) fl RDW Coeff of Robb 15 (11.0-15.0) % Plt Count 186 (150-400) K/uL MPV 10.90 (7.40-12.00) fL Neut % (Auto) 65.8 (48.0-80.0) % Lymph % (Auto) 19.5 (16.0-40.0) % [place] % (Auto) 12.5 (0.0-15.0) % Eos % (Auto) 1.9 (0.0-7.0) % Baso % (Auto) 0.3 (0.0-1.5) % Neut # (Auto) 2.5 (1.4-5.7) K/uL Lymph # (Auto) 0.7 (0.6-2.4) K/uL [place] # (Auto) 0.5 (0.0-0.8) K/uL Eos # (Auto) 0.1 (0.0-0.7) K/uL Baso # (Auto) 0.0 (0.0-0.1) K/uL Nucleated RBC % 0.0 /100WBC Nucleated RBCs # 0 K/uL Sodium 143 (136-146) mmol/L Potassium 3.8 (3.5-5.1) mmol/L Chloride 114 H (98-110) mmol/L Carbon Dioxide 21 (21-31) mmol/L BUN 19 (6.0-23.0) mg/dL Creatinine 0.9 (0.6-1.5) mg/dL Est Cr Clr Drug Dosing 94.13 mL/min Estimated GFR (MDRD) > 60.0 ml/min Glucose 103 (60-110) mg/dL Calcium 7.8 L (8.8-10.8) mg/dL Magnesium 1.5 (1.5-2.3) mEq/L VARGHESE Results - Last 24 hrs: Microbiology 06/22/17 03:30 Stool Occult Blood (VARGHESE) - Final Stool / Feces NEGATIVE OCCULT BLOOD Med Orders - Current: Current Medications Hydromorphone HCl (Dilaudid) 1 mg IVPUSH Q3H PRN PRN Reason: Pain (severe 7-10) Last Admin: 06/21/17 21:15 Dose: 1 mg Sodium Chloride (Normal Saline) 1,000 mls @ 125 mls/hr IV ASDIRECTED [facility] Last Admin: 06/22/17 08:25 Dose: 125 mls/hr Pantoprazole Sodium 80 mg/ (Sodium Chloride) 100 mls @ 10 mls/hr IV Q10H [facility] Last Admin: 06/22/17 15:38 Dose: 10 mls/hr Ondansetron HCl (Zofran) 4 mg IVPUSH Q4H PRN PRN Reason: Nausea Discontinued Medications Hydromorphone HCl (Dilaudid) 1 mg IM ONETIME ONE Stop: 06/21/17 13:57 Last Admin: 06/21/17 14:00 Dose: 1 mg Hydromorphone HCl (Dilaudid) 1 mg IVPUSH Q3H PRN PRN Reason: Pain (severe 7-10) Sodium Chloride (Normal Saline) 1,000 mls @ 999 mls/hr IV ASDIRECTED JOSE D Last Admin: 06/21/17 14:01 Dose: 999 mls/hr Pantoprazole Sodium 80 mg/ (Sodium Chloride) 100 mls @ 10 mls/hr IV .Continuous JOSE D Last Admin: 06/21/17 15:00 Dose: 10 mls/hr Ondansetron HCl (Zofran) 4 mg IVPUSH ONETIME ONE Stop: 06/21/17 13:57 Last Admin: 06/21/17 14:00 Dose: 4 mg Pantoprazole Sodium (Protonix Iv) 80 mg IVPUSH .BOLUS ONE Stop: 06/21/17 14:02 Last Admin: 06/21/17 14:07 Dose: 80 mg *Q Meaningful Use (DIS) - VTE *Q VTE Criteria *Q: - Stroke *Q Stroke Criteria *Q: - AMI *Q AMI Criteria *Q:
== END 2017-06-22 18:25 | disposition home or self-care (01) | DRG 247 ==
LOC: MW.ED 13:44 → MW.MS 15:54
PROVIDERS: ADMIT Family Medicine; ATTEND Family Medicine
DX: K56.609 Unspecified intestinal obstruction, unspecified as to partial versus complete obstruction (principal); R10.13 Epigastric pain; K92.1 Melena; K21.9 Gastro-esophageal reflux disease without esophagitis; Z98.890 Other specified postprocedural states; Z88.8 Allergy status to other drugs, medicaments and biological substances; Z79.899 Other long term (current) drug therapy; Z87.891 Personal history of nicotine dependence
CPT/HCPCS: 36415; 43753; 71010; 71010-26; 74000; 74000-26; 74176; 74176-26; 80048; 80053; 82272; 83605; 83735; 85025; 85610; 86850; 86900; 86901; 93005; 96361; 96365; 96375; 96376; 99283; 99285-25; C9113; J1170; J2405; J7030; J7040

== ENCOUNTER 2017-06-27 09:42 | Day surgery (SDC) | payer BC ==
[~2017-06-27 09:42] MED LIST: Lactated Ringers 1,000 ML IV SCH
[2017-06-27] MEDS ORDERED: Midazolam 1 MG/ML 2 ML SDV ONE (09:51)
[2017-06-27] MEDS ORDERED: fentaNYL 100 MCG/2 ML SDV ONE (09:51)
[2017-06-27] MEDS ORDERED: Propofol 200 MG/20 ML SDV ONE ×2 (09:51→11:24)
--- NOTE | 2017-06-27 10:12 | PCM.PREANE ---
Preanesthetic Assessment - Anesthesia/Transfusion/Family Hx Anesthesia History: Prior Anesthesia Without Reaction Transfusion History: No Prior Transfusion(s) - Review of Systems General: No Symptoms Pulmonary: No Symptoms Cardiovascular: No Symptoms Gastrointestinal: No Symptoms Neurological: No Symptoms Other: Reports: None - Physical Assessment NPO Status Date: 06/26/17 NPO Status Time: 23:00 Height: 5 ft 11 in Weight: 107.955 kg ASA Class: 2 Mental Status: Alert & Oriented x3 Airway Class: Mallampati = 2 Dentition: Reports: Missing Tooth/Teeth (Denies any currently loose teeth) ROM/Head Extension: Full Lungs: Clear to Auscultation, Normal Respiratory Effort Cardiovascular: Regular Rate, Regular Rhythm - Lab Values: Laboratory Last Values Hgb 11.4 g/dL (13.0-17.0) L 06/27/17 10:01 Hct 34.5 % (38.0-50.0) L 06/27/17 10:01 - Allergies Allergies/Adverse Reactions: Allergies Allergy/AdvReac Type Severity Reaction Status Date / Time pseudoephedrine Allergy Shaking Verified 06/25/17 08:15 [From [facility]] - Anesthesia Plan Free Text/Narrative:: Pt was hospitalized in the last week for bowel obstruction and probable GI bleed. Recheck H/H ok - Acknowledgements Anesthesia Type Planned: MAC Pt an Appropriate Candidate for the Planned Anesthesia: Yes Alternatives and Risks of Anesthesia Discussed w Pt/Guardian: Yes Pt/Guardian Understands and Agrees with Anesthesia Plan: Yes PreAnesthesia Questionnaire HEENT History: Reports: Other (See Below) Other HEENT History: wears glasses, has top and bottom partial Cardiovascular History: Reports: None. Denies: Afib, Blood Clots/VTE/DVT, CAD, Hypertension, VT Respiratory History: Reports: None. Denies: Asthma, COPD, PE Gastrointestinal History: Reports: Bowel Obstruction, GERD Other Gastrointestinal History: recently in the hospital for small bowel obstruction Genitourinary History: Reports: None. Denies: Chronic Renal Insuffiency Musculoskeletal History: Reports: Fracture Other Musculoskeletal History: hx fx ankle Neurological History: Reports: None Psychiatric History: Reports: None Endocrine/Metabolic History: Reports: Obesity/BMI 30+. Denies: Diabetes, Type II, Hypothyroidism Hematologic History: Reports: None Immunologic History: Reports: None Oncologic (Cancer) History: Reports: None Dermatologic History: Reports: None - Infectious Disease History Infectious Disease History: Reports: None - Past Surgical History Head Surgeries/Procedures: Reports: None GI Surgical History: Reports: Colonoscopy, Lily Fundoplication, Other (See Below) Other GI Surgeries/Procedures: lily - stomach surgery for heartburn-tied the stomach to the sphincter, Musculoskeletal Surgical History: Reports: Arthroscopic Knee - SUBSTANCE USE Smoking Status *Q: Former Smoker (quit 20 years ago) Tobacco Use Within Last Twelve Months: No Second Hand Smoke Exposure: No Recreational Drug Use History: No - HOME MEDS Home Medications: Home Meds Omeprazole 40 mg PO DAILY 06/21/17 [History] Sucralfate 1 gm PO QID 06/21/17 [History] Fish Oil/[place]-3 Fatty Acids [Fish Oil 1,000 MG] 1,000 mg PO TID 06/25/17 [ History] - CURRENT (IN HOUSE) MEDS Current Meds: Current Medications Lactated Ringer's (Ringers, Lactated) 1,000 mls @ 125 mls/hr IV ASDIRECTED JOSE D Discontinued Medications Fentanyl (Sublimaze) Confirm Administered Dose 100 mcg .ROUTE .STK-MED ONE Stop: 06/27/17 09:52 Midazolam HCl (Versed 1 Mg/Ml) Confirm Administered Dose 2 mg .ROUTE .STK-MED ONE Stop: 06/27/17 09:52 Propofol (Diprivan 20 Ml) Confirm Administered Dose 200 mg .ROUTE .STK-MED ONE Stop: 06/27/17 09:52
--- NOTE | 2017-06-27 11:53 | PCM.OPNOTE ---
- General Post-Op/Procedure Note Date of Surgery/Procedure: 06/27/17 Operative Procedure(s): Esophagogastroduodenoscopy with biopsy. Colonoscopy. Pre Op Diagnosis: Melena. Lightheadedness. Hemoccult-positive stool. Post-Op Diagnosis: Gastritis. No evidence of colonic neoplasia. Anesthesia Technique: MAC Primary Surgeon: Dereje Vázquez Condition: Good Free Text/Narrative:: Dictation [id number] CPT CODE [id number]
[2017-06-27] MEDS ORDERED: Lactated Ringers 1,000 ML IV SCH (12:00)
--- NOTE | 2017-06-27 12:10 | PCM.POSTAN ---
POST ANESTHESIA ASSESSMENT - MENTAL STATUS Mental Status: Alert, Oriented - RESPIRATORY Respiratory Status: Respiratory Rate WNL, Airway Patent, O2 Saturation Stable - CARDIOVASCULAR CV Status: Pulse Rate WNL, Blood Pressure Stable - GASTROINTESTINAL GI Status: No Symptoms - POST OP HYDRATION Hydration Status: Adequate & Stable
--- NOTE | 2017-06-27 12:10 | PCM48HPAN ---
Post Anesthesia Note - EVALUATION WITHIN 48HRS OF ANESTHETIC Vital Signs in Normal Range: Yes Patient Participated in Evaluation: Yes Respiratory Function Stable: Yes Airway Patent: Yes Cardiovascular Function Stable: Yes Hydration Status Stable: Yes Pain Control Satisfactory: Yes Nausea and Vomiting Control Satisfactory: Yes Mental Status Recovered: Yes
--- NOTE | 2017-06-27 12:29 | OR ---
SURGEON: Dereje Vázquez M.D. DATE OF PROCEDURE: 06/27/2017 OPERATION PERFORMED: Esophagogastroduodenoscopy with biopsy. ANESTHESIA: MAC. ASA CLASSIFICATION: II. PREOPERATIVE DIAGNOSES: Melena, lightheadedness with Hemoccult positive stool. POSTOPERATIVE DIAGNOSIS: Gastritis. DESCRIPTION OF PROCEDURE: The patient was taken to the endoscopy room and positioned on the endoscopy table in the supine position. Time-out was called for appropriate identification of the patient and procedure. Monitored anesthesia care was provided. The bite-block was placed between the patient's teeth. The oropharynx had been anesthetized with topical anesthetic. The gastroscope was inserted through the bite-block and advanced without difficulty through the esophagus and stomach into the duodenum, where examination was carried out in a retrograde fashion. The duodenum shows no acute inflammatory changes or ulcerations. The stomach shows a fali-[id number]-gdchlmso gastritis. No acute ulcerations were seen. Antral biopsies were obtained to look for the presence of Helicobacter pylori. The patient has had a laparoscopic Miguel and changes consistent with that are noted with the scope in a retroflexed position. I did not see any significant acute inflammatory changes. The gastroscope was then straightened and slowly withdrawn aspirating the stomach as the scope was withdrawn. The esophagus demonstrates [id number] esophagitis and separate biopsies of the esophagus were obtained. No bleeding was noted. No varices were identified. The esophagus itself demonstrates good contractility. No mid or proximal lesions were identified. The vocal cords were visualized as the scope was withdrawn and noted to move symmetrically. The gastroscope was then removed with the patient having tolerated the procedure well. Following colonoscopy, he was taken to recovery room in stable condition. TRENT ALFORD /[id number]
--- NOTE | 2017-06-27 12:32 | OR ---
SURGEON: Dereje Vázquez M.D. DATE OF PROCEDURE: 06/27/2017 OPERATION PERFORMED: Colonoscopy. ANESTHESIA: MAC. ASA CLASSIFICATION: II. PREOPERATIVE DIAGNOSIS: Melena with Hemoccult positive stool. POSTOPERATIVE DIAGNOSIS: Minimal hemorrhoids. DESCRIPTION OF PROCEDURE: With the patient having completed esophagogastroduodenoscopy, he was now positioned in the left lateral decubitus position. The colonoscope was inserted into the rectum and advanced without difficulty to the cecum, where the colonoscope was retroflexed to visualize the ascending colon from below. The colonoscope was then straightened and slowly withdrawn. The cecum, ascending colon, hepatic flexure, transverse colon, splenic flexure, descending colon, sigmoid colon, and rectum were very well visualized. No tumors, polyps, or diverticular changes were noted anywhere. There was no evidence of inflammatory bowel disease. Once the scope was withdrawn to the rectum and retroflexed, no acute hemorrhoidal changes were noted. Certainly, no bleeding was seen. The colonoscope was then straightened, the rectum aspirated, and the colonoscope removed. The patient tolerated the procedure well and was taken to recovery room in stable condition. TRENT ALFORD /[id number]
== END 2017-06-27 12:35 | disposition home or self-care (01) ==
LOC: MW.SDS 09:42
PROVIDERS: ATTEND Surgery
DX: C15.5 Malignant neoplasm of lower third of esophagus (principal); K29.50 Unspecified chronic gastritis without bleeding; K64.9 Unspecified hemorrhoids; K21.9 Gastro-esophageal reflux disease without esophagitis; Z88.8 Allergy status to other drugs, medicaments and biological substances; Z79.899 Other long term (current) drug therapy; Z87.891 Personal history of nicotine dependence
CPT/HCPCS: 36415; 43239; 45378; 85014; 85018; 88305; 88312; J2250; J3010; J2704

== ENCOUNTER 2017-07-30 06:34 | Day surgery (SDC) | payer BC ==
[~2017-07-30 06:34] MED LIST changes: +ceFAZolin 2 GM in Premix Bag 1 BAG IV SCH
[2017-07-30] MEDS ORDERED: Propofol 200 MG/20 ML SDV ONE (07:08)
[2017-07-30] MEDS ORDERED: Midazolam 1 MG/ML 2 ML SDV ONE (07:08)
[2017-07-30] MEDS ORDERED: fentaNYL 100 MCG/2 ML SDV ONE ×2 (07:08→08:12)
--- NOTE | 2017-07-30 07:08 | PCM.PREANE ---
Preanesthetic Assessment - Anesthesia/Transfusion/Family Hx Anesthesia History: Prior Anesthesia Without Reaction Family History of Anesthesia Reaction: No Transfusion History: No Prior Transfusion(s) - Review of Systems General: No Symptoms Pulmonary: No Symptoms Cardiovascular: No Symptoms Gastrointestinal: No Symptoms Neurological: No Symptoms Other: Reports: None - Physical Assessment NPO Status Date: 07/29/17 Height: 1.8 m Weight: 107.501 kg ASA Class: 2 Mental Status: Alert & Oriented x3 Airway Class: Mallampati = 1 Dentition: Reports: Partial ROM/Head Extension: Full Lungs: Clear to Auscultation, Normal Respiratory Effort Cardiovascular: Regular Rate, Regular Rhythm - Allergies Allergies/Adverse Reactions: Allergies Allergy/AdvReac Type Severity Reaction Status Date / Time pseudoephedrine Allergy [facility]17 12[facility]09 [facility] - Anesthesia Plan Pre-Op Medication Ordered: None - Acknowledgements Anesthesia Type Planned: General Anesthesia Pt an Appropriate Candidate for the Planned Anesthesia: Yes Alternatives and Risks of Anesthesia Discussed w Pt/Guardian: Yes Pt/Guardian Understands and Agrees with Anesthesia Plan: Yes PreAnesthesia Questionnaire HEENT History: Reports: None Other HEENT History: wears glasses, has top and bottom partial Cardiovascular History: Reports: None Respiratory History: Reports: None Gastrointestinal History: Reports: GERD Other Gastrointestinal History: recently in the hospital for small bowel obstruction Genitourinary History: Reports: None Musculoskeletal History: Reports: None, Arthritis Other Musculoskeletal History: hx fx ankle Neurological History: Reports: None Psychiatric History: Reports: Anxiety Endocrine/Metabolic History: Reports: Obesity/BMI 30+ Hematologic History: Reports: None Immunologic History: Reports: None Oncologic (Cancer) History: Reports: Esophageal Dermatologic History: Reports: None - Infectious Disease History Infectious Disease History: Reports: None - Past Surgical History Head Surgeries/Procedures: Reports: None HEENT Surgical History: Reports: None Cardiovascular Surgical History: Reports: None Respiratory Surgical History: Reports: None GI Surgical History: Reports: Colonoscopy, EGD, Lily Fundoplication, Other ( See Below) Other GI Surgeries/Procedures: lily - stomach surgery for heartburn-tied the stomach to the sphincter, Male Surgical History: Reports: None Endocrine Surgical History: Reports: None Neurological Surgical History: Reports: None Musculoskeletal Surgical History: Reports: None Oncologic Surgical History: Reports: None Dermatological Surgical History: Reports: None - SUBSTANCE USE Smoking Status *Q: Former Smoker Tobacco Use Within Last Twelve Months: No Second Hand Smoke Exposure: No Recreational Drug Use History: No - HOME MEDS Home Medications: Home Meds LORazepam 1 tab PO ASDIRECTED PRN 07/25/17 [History] Ondansetron [Zofran] 8 mg PO ASDIRECTED PRN 07/25/17 [History] Prochlorperazine Maleate 10 mg PO ASDIRECTED PRN 07/25/17 [History] - CURRENT (IN HOUSE) MEDS Current Meds: Current Medications Cefazolin Sodium/Dextrose 2 gm (/ Premix) 50 mls @ 100 mls/hr IV ONETIME JOSE D Lactated Ringer's (Ringers, Lactated) 1,000 mls @ 125 mls/hr IV ASDIRECTED JOSE D
[2017-07-30] MEDS ORDERED: Lidocaine 2% 5 ML SDV ONE (07:09)
[2017-07-30] MEDS ORDERED: diphenhydrAMINE 50 MG/ML SDV ONE (07:09)
[2017-07-30] MEDS ORDERED: Ondansetron 4 MG/2 ML SDV ONE (07:09)
[2017-07-30] MEDS ORDERED: Heparin Sodium 100 Units/ML 3 ML Syringe ONE ×2 (07:29→08:39)
[2017-07-30] MEDS ORDERED: Bupivacaine 0.5% 30 ML SDV ONE (07:30)
[2017-07-30] MEDS ORDERED: Lidocaine 1% 20 ML MDV ONE (07:30)
[2017-07-30] MEDS ORDERED: ceFAZolin 1 GM Vial ONE (07:40)
--- NOTE | 2017-07-30 09:16 | CR ---
Procedural fluoroscopy Fluoroscopy was utilized by the physician for placement of a port catheter length 22.4 seconds of flu oroscopic time. Impression: Procedural fluoroscopy as above
[2017-07-30] MEDS ORDERED: Acetaminophen/HYDROcodone 325-10 MG Tab PO PRN (09:40)
--- NOTE | 2017-07-30 09:43 | PCM.OPNOTE ---
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
[2017-07-30] MEDS ORDERED: Lactated Ringers 1,000 ML IV SCH (09:45)
--- NOTE | 2017-07-30 10:12 | CR ---
Portable chest Clinical history: Postop Port-A-Cath placement Comparison: June 21, 2017 Findings: A Port-A-Cath is in place via the left subclavian approach extending into the superior vena cava in good position. There is mild cardiac midline. There is diffuse interstitial density througho ut the lungs which has increased somewhat since prior examination of June 21. This likely represe nts heart failure/hypervolemia. Clips are again identified in the region of the epigastrium as before . No pneumothorax. Impression: Satisfactory Port-A-Cath placement with no evolving pneumothorax. Congestive failure/hype rvolemia.
--- NOTE | 2017-07-31 09:17 | OR ---
SURGEON: Dereje Vázquez M.D. DATE OF PROCEDURE: 07/30/2017 OPERATION PERFORMED: Placement of Bard PowerPort via left cephalic vein approach to the superior vena cava. ANESTHESIA: General LMA. ASA CLASSIFICATION: II. PREOPERATIVE DIAGNOSIS: Stage IV carcinoma of the esophagus. POSTOPERATIVE DIAGNOSIS: Stage IV carcinoma of the esophagus. ESTIMATED BLOOD LOSS: 1 mL. DESCRIPTION OF PROCEDURE: The patient was taken to the operating room and placed on the operating table in the supine position. Time-out was called for appropriate identification of the patient and procedure. The surgical site was marked prior to the patient entering the operating room. Following satisfactory attainment of general anesthesia with placement of an LMA, the left chest was prepped with DuraPrep solution and sterile drapes were applied. The skin incision was marked out in the left deltopectoral groove, then infiltrated with 1% Xylocaine and 0.5% Marcaine. A skin incision was made and deepened through the subcutaneous tissue obtaining hemostasis with the use of electrocautery. Dissection was carried down to the deltopectoral groove where the left cephalic vein was identified. This was of excellent quality and caliber. The vein was then dissected out and encircled with 3-0 Vicryl ties. With that accomplished, the distal tie was secured. A small venotomy was made and the heparin flushed catheter was passed through the venotomy and positioned with the use of fluoroscopy in the superior vena cava. There was good return of blood and the catheter flushed easily. The proximal 2 Vicryl ties were secured to prevent the catheter from being dislodged. Appropriate site on the left anterior chest wall was then chosen for placement of the port. Again, the skin was infiltrated with 1% Xylocaine and 0.5% Marcaine solution. Skin incision was made and using electrocautery for dissection and hemostasis, a subcutaneous pocket was made. The tunneler was then passed from the chest incision to the deltopectoral incision and the catheter assembled to the tunneler, which was then passed through the subcutaneous tunnel. The catheter was then cut to appropriate length and the catheter and heparin flush port were now secured. Care was taken through the entire procedure to prevent an air embolus. Once the port and catheter were assembled, the port was then secured to the subcutaneous tissue with interrupted 2-0 silk sutures. Wound was then inspected for hemostasis and no bleeding was noted. Both incisions were then closed in 2 layers approximating the subcutaneous tissue with 3-0 Vicryl and the skin with subcuticular 4-0 Monocryl. The deltopectoral incision was Steri-Stripped. The port was then accessed with a 3/4 inch [place] needle. There was good return of blood and the catheter flushes easily. The bumper was placed under the needle to prevent irritation on the skin. Both sites were dressed with sterile Tegaderm pads. It should also be noted that after the catheter and port were assembled, the lock was placed securely and thus safely securing the catheter to the port. Sponge, needle, and instrument counts were all correct. The patient tolerated the procedure well. Following emergence from anesthesia and extubation, he was taken to recovery room in satisfactory condition. TRENT ALFORD /[id number]
== END 2017-07-30 11:10 | disposition home or self-care (01) ==
LOC: MW.SDS 06:34
PROVIDERS: ATTEND Surgery
DX: C15.4 Malignant neoplasm of middle third of esophagus (principal); K21.9 Gastro-esophageal reflux disease without esophagitis; F41.9 Anxiety disorder, unspecified; E66.9 Obesity, unspecified; Z68.33 Body mass index [BMI] 33.0-33.9, adult; Z87.891 Personal history of nicotine dependence; Z82.49 Family history of ischemic heart disease and other diseases of the circulatory system; Z79.899 Other long term (current) drug therapy; Z88.8 Allergy status to other drugs, medicaments and biological substances; Z98.890 Other specified postprocedural states
CPT/HCPCS: 36561; 71045; 76000; C1788; J0690; J1200; J1642; J2250; J2405; J3010; J7120; 00532; J2704

== ENCOUNTER 2018-03-01 04:22 | Inpatient (IN) | payer BC ==
[2018-03-01] MEDS ORDERED: Ondansetron 4 MG/2 ML SDV IVPUSH ONE (04:27)
[2018-03-01] MEDS ORDERED: Sodium Chloride 0.9% 1,000 ML IV ONE (04:33)
[2018-03-01] MEDS ORDERED: Morphine 2 MG/ML Syringe IVPUSH STA (05:39)
[2018-03-01] MEDS ORDERED: Morphine 2 MG/ML Syringe ONE (05:41)
[2018-03-01] MEDS ORDERED: Iopamidol 755 MG/ML 200 ML Multipack Bottle IVPUSH STA (06:25)
[2018-03-01] MEDS ORDERED: HYDROmorphone 1 MG/ML Syringe IVPUSH ONE (06:40)
--- NOTE | 2018-03-01 06:44 | EDM.PDOC ---
ED HPI GENERAL MEDICAL PROBLEM - General Chief Complaint: Abdominal Pain Stated Complaint: STOMACH PAINS Time Seen by Provider: 03/01/18 06:37 - History of Present Illness INITIAL COMMENTS - FREE TEXT/NARRATIVE: HISTORY AND PHYSICAL: History of present illness: Patient's a 62-year-old white male history of esophageal cancer for which he has been undergoing chemotherapy that was started 7 months prior he states recent PET scan demonstrated stability of the esophageal cancer and his last chemotherapy was Saturday. His only abdominal surgery has been a Miguel fundoplication. He presents today with abdominal pain progressively worse over last 24 hours with associated nausea but no fever chills no chest pain or shortness of breath. Review of systems: As per history of present illness and below otherwise all systems reviewed and negative. Past medical history: As per history of present illness and as reviewed below otherwise noncontributory. Surgical history: As per history of present illness and as reviewed below otherwise noncontributory. Social history: No reported history of drug or alcohol abuse. Family history: As per history of present illness and as reviewed below otherwise noncontributory. Physical exam: HEENT: Atraumatic, normocephalic, pupils reactive, negative for conjunctival pallor or scleral icterus, mucous membranes dry, throat clear, neck supple, nontender, trachea midline. Lungs: Clear to auscultation, breath sounds equal bilaterally, chest nontender. Heart: S1S2, regular, negative for clicks, rubs, or JVD. Abdomen: Protuberant with mild distention mild diffuse tenderness no rebound no guarding Negative for masses or hepatosplenomegaly. Negative for costovertebral tenderness. Pelvis: Stable nontender. Genitourinary: Deferred. Rectal: Deferred. Extremities: Atraumatic, negative for cords or calf pain. Neurovascular unremarkable. Neuro: Awake, alert, oriented. Cranial nerves II through XII unremarkable. Cerebellum unremarkable. Motor and sensory unremarkable throughout. Exam nonfocal. Diagnostics: CBC CMP UA lipase chest x-ray EKG CT abdomen and pelvis with IV contrast Therapeutics: Normal saline 1 L bolus morphine sulfate 2 mg IV Zofran 4 mg IV Impression: #1 abdominal pain #2 history of esophageal cancer Definitive disposition and diagnosis as appropriate pending reevaluation and review of above. abdominal pain Pain Score (Numeric/FACES): 5 - Related Data Allergies Allergy/AdvReac Type Severity Reaction Status Date / Time pseudoephedrine Allergy Shaking Verified 03/01/18 04:30 [From Sudafed] Home Meds: Home Meds LORazepam 1 tab PO ASDIRECTED PRN 07/25/17 [History] Ondansetron [Zofran] 8 mg PO ASDIRECTED PRN 07/25/17 [History] Prochlorperazine Maleate 10 mg PO ASDIRECTED PRN 07/25/17 [History] Past Medical History HEENT History: Reports: None Other HEENT History: wears glasses, has top and bottom partial Cardiovascular History: Reports: None Respiratory History: Reports: None Gastrointestinal History: Reports: None Other Gastrointestinal History: recently in the hospital for small bowel obstruction Genitourinary History: Reports: None Musculoskeletal History: Reports: None, Arthritis Other Musculoskeletal History: hx fx ankle Neurological History: Reports: None Psychiatric History: Reports: Anxiety Endocrine/Metabolic History: Reports: Obesity/BMI 30+ Hematologic History: Reports: None Immunologic History: Reports: None Oncologic (Cancer) History: Reports: Esophageal Other Oncologic History: on chemotherapy, once every 3 weeks (pt with port for chemo) Dermatologic History: Reports: None - Infectious Disease History Infectious Disease History: Reports: None - Past Surgical History Head Surgeries/Procedures: Reports: None HEENT Surgical History: Reports: None Cardiovascular Surgical History: Reports: None Respiratory Surgical History: Reports: None GI Surgical History: Reports: Colonoscopy, Miguel Fundoplication, Other (See Below) Male Surgical History: Reports: None Endocrine Surgical History: Reports: None Neurological Surgical History: Reports: None Musculoskeletal Surgical History: Reports: None Oncologic Surgical History: Reports: None Dermatological Surgical History: Reports: None Social & Family History - Family History Family Medical History: Noncontributory - Tobacco Use Smoking Status *Q: Never Smoker Second Hand Smoke Exposure: No - Caffeine Use Caffeine Use: Reports: Coffee - Recreational Drug Use Recreational Drug Use: No - Living Situation & Occupation Living situation: Reports: , with Spouse Occupation: Employed ED ROS GENERAL - Review of Systems Review Of Systems: ROS reveals no pertinent complaints other than HPI. ED EXAM, GENERAL - Physical Exam Exam: See Below (See dictation) Course - Vital Signs Last Recorded V/S: Last Vital Signs Temp 36.3 C 03/01/18 06:27 Pulse 68 03/01/18 06:27 Resp 18 03/01/18 06:27 BP 120/66 03/01/18 06:27 Pulse Ox 96 03/01/18 06:27 - Orders/Labs/Meds Orders: Active Orders 24 hr Category Date Time Status EKG 12 Lead [EKG Documentation Completion] [RC] STAT Care 03/01/18 04:38 Active Abdomen Pelvis w Cont [CT] Stat Exams 03/01/18 04:33 Taken Chest 2V [CR] Stat Exams 03/01/18 04:33 Taken UA W/MICROSCOPIC [URIN] Stat Lab 03/01/18 04:33 Ordered Sodium Chloride 0.9% [Normal Saline] 1,000 ml Med 03/01/18 04:33 Active IV .Bolus Medication Orders Sodium Chloride (Normal Saline) 1,000 mls @ 125 mls/hr IV .Bolus ONE Stop: 03/01/18 12:32 Last Admin: 03/01/18 04:36 Dose: 125 mls/hr Labs: Laboratory Tests 03/01/18 03/01/18 Range/Units 04:30 04:30 WBC 7.11 (4.0-11.0) K/uL RBC 5.13 (4.50-5.90) M/uL Hgb 15.0 (13.0-17.0) g/dL Hct 43.7 (38.0-50.0) % MCV 85.2 (80.0-98.0) fL MCH 29.2 (27.0-32.0) pg MCHC 34.3 (31.0-37.0) g/dL RDW Std Deviation 50.1 (28.0-62.0) fl RDW Coeff of Robb 17 H (11.0-15.0) % Plt Count 126 L (150-400) K/uL MPV 10.70 (7.40-12.00) fL Neut % (Auto) 57.8 (48.0-80.0) % Lymph % (Auto) 29.3 (16.0-40.0) % [place] % (Auto) 12.1 (0.0-15.0) % Eos % (Auto) 0.7 (0.0-7.0) % Baso % (Auto) 0.1 (0.0-1.5) % Neut # (Auto) 4.1 (1.4-5.7) K/uL Lymph # (Auto) 2.1 (0.6-2.4) K/uL [place] # (Auto) 0.9 H (0.0-0.8) K/uL Eos # (Auto) 0.1 (0.0-0.7) K/uL Baso # (Auto) 0.0 (0.0-0.1) K/uL Nucleated RBC % 0.0 /100WBC Nucleated RBCs # 0 K/uL Sodium 141 (136-148) mmol/L Potassium 3.6 (3.5-5.1) mmol/L Chloride 104 (98-107) mmol/L Carbon Dioxide 30.3 (21.0-32.0) mmol/L BUN 17 (7.0-18.0) mg/dL Creatinine 1.4 H (0.8-1.3) mg/dL Est Cr Clr Drug Dosing 59.76 mL/min Estimated GFR (MDRD) 51.7 ml/min Glucose 159 H (74-106) mg/dL Calcium 9.4 (8.5-10.1) mg/dL Total Bilirubin 0.4 (0.2-1.0) mg/dL AST 45 H (15-37) IU/L ALT 38 (14-63) IU/L Alkaline Phosphatase 110 (46-116) U/L Total Protein 7.5 (6.4-8.2) g/dL Albumin 3.7 (3.4-5.0) g/dL Globulin 3.8 H (2.0-3.5) g/dL Albumin/Globulin Ratio 1.0 L (1.3-2.8) Lipase 693 H (73-393) U/L Meds: Medications Generic Name Dose Route Start Last Admin Trade Name Freq PRN Reason Stop Dose Admin Sodium Chloride 1,000 mls @ 125 mls/hr 03/01/18 04:33 03/01/18 04:36 Normal Saline IV 03/01/18 12:32 125 mls/hr .Bolus ONE Administration Discontinued Medications Generic Name Dose Route Start Last Admin Trade Name Freq PRN Reason Stop Dose Admin Hydromorphone HCl 1 mg 03/01/18 06:40 03/01/18 06:46 Dilaudid IVPUSH 03/01/18 06:41 1 mg ONETIME ONE Administration Iopamidol 75 ml 03/01/18 06:25 03/01/18 06:26 Isovue Multipack-370 (76%) IVPUSH 03/01/18 06:26 75 ml ONETIME STA Administration Morphine Sulfate 2 mg 03/01/18 05:39 03/01/18 05:43 Morphine IVPUSH 03/01/18 05:40 2 mg NOW STA Administration Morphine Sulfate Confirm 03/01/18 05:41 03/01/18 06:13 Morphine Administered 03/01/18 05:42 Not Given Dose 2 mg .ROUTE .STK-MED ONE Ondansetron HCl 4 mg 03/01/18 04:27 03/01/18 04:37 Zofran IVPUSH 03/01/18 04:28 4 mg ONETIME ONE Administration Pantoprazole Sodium 80 mg 03/01/18 06:45 03/01/18 06:48 Protonix Iv IVPUSH 03/01/18 06:46 80 mg NOW ONE Administration Departure - Departure Time of Disposition: 07:41 Disposition: Admitted As Inpatient 68 Condition: Fair Clinical Impression: Abdominal pain, Bowel obstruction, Esophageal cancer - Discharge Information - My Orders Last 24 Hours: My Active Orders 03/01/18 04:33 Abdomen Pelvis w Cont [CT] Stat Chest 2V [CR] Stat UA W/MICROSCOPIC [URIN] Stat Sodium Chloride 0.9% [Normal Saline] 1,000 ml IV .Bolus 03/01/18 04:38 EKG 12 Lead [EKG Documentation Completion] [RC] STAT - Assessment/Plan Last 24 Hours: My Active Orders 03/01/18 04:33 Abdomen Pelvis w Cont [CT] Stat Chest 2V [CR] Stat UA W/MICROSCOPIC [URIN] Stat Sodium Chloride 0.9% [Normal Saline] 1,000 ml IV .Bolus 03/01/18 04:38 EKG 12 Lead [EKG Documentation Completion] [RC] STAT
[2018-03-01] MEDS ORDERED: Pantoprazole 40 MG Vial IVPUSH ONE (06:45)
[2018-03-01] MEDS ORDERED: Benzocaine 20% Topical Spray UD MUCMEM ONE ×2 (08:17)
--- NOTE | 2018-03-01 09:06 | PCM.SN ---
- Free Text/Narrative Note: pt seen, chart reviewed; cx dictated [id number]; ngt insertion, follow w serial abd exam; will follow with you
[2018-03-01] MEDS ORDERED: HYDROmorphone 1 MG/ML Syringe IVPUSH PRN (10:28)
[2018-03-01] MEDS ORDERED: Ondansetron 4 MG/2 ML SDV IVPUSH PRN (10:28)
[2018-03-01] MEDS: Sodium Chloride 0.9% 1,000 ML IV SCH ×2 (12:35→20:26)
--- NOTE | 2018-03-01 15:28 | PCM.HP ---
H&P History of Present Illness - General Date of Service: 03/01/18 Admit Problem/Dx: Admission Diagnosis/Problem Admission Diagnosis/Problem Abdominal pain - History of Present Illness Initial Comments - Free Text/Narative: 62 yo male with pmh of esophageal cancer who presents to the ED with one night history of abdominal pain, nausea and vomiting. Patient reported severe abdominal cramping and gas. His last bowel movement was 2 am which reports was solid. He denies any fevers, blood in stool or vomit. CT scan of abdomen reports small bowel obstruction with transition point in distal small bowel. Dr. Rubin was consulted in the ED and NG tube was placed. abdominal pain Pain Score (Numeric/FACES): 4 - Related Data Allergies/Adverse Reactions: Allergies Allergy/AdvReac Type Severity Reaction Status Date / Time pseudoephedrine Allergy Shaking Verified 03/01/18 04:30 [From Sudafed] Home Medications: Home Meds LORazepam 1 tab PO ASDIRECTED PRN 07/25/17 [History] Ondansetron [Zofran] 8 mg PO ASDIRECTED PRN 07/25/17 [History] Prochlorperazine Maleate 10 mg PO ASDIRECTED PRN 07/25/17 [History] Past Medical History HEENT History: Reports: None Other HEENT History: wears glasses, has top and bottom partial Cardiovascular History: Reports: None Respiratory History: Reports: None Gastrointestinal History: Reports: None Other Gastrointestinal History: recently in the hospital for small bowel obstruction Genitourinary History: Reports: None Musculoskeletal History: Reports: None, Arthritis Other Musculoskeletal History: hx fx ankle Neurological History: Reports: None Psychiatric History: Reports: Anxiety Endocrine/Metabolic History: Reports: Obesity/BMI 30+ Hematologic History: Reports: None Immunologic History: Reports: None Oncologic (Cancer) History: Reports: Esophageal Other Oncologic History: on chemotherapy, once every 3 weeks (pt with port for chemo) Dermatologic History: Reports: None - Infectious Disease History Infectious Disease History: Reports: None - Past Surgical History Head Surgeries/Procedures: Reports: None HEENT Surgical History: Reports: None Cardiovascular Surgical History: Reports: None Respiratory Surgical History: Reports: None GI Surgical History: Reports: Colonoscopy, Miguel Fundoplication, Other (See Below) Male Surgical History: Reports: None Endocrine Surgical History: Reports: None Neurological Surgical History: Reports: None Musculoskeletal Surgical History: Reports: None Oncologic Surgical History: Reports: None Dermatological Surgical History: Reports: None Social & Family History - Family History Family Medical History: Noncontributory - Tobacco Use Smoking Status *Q: Former Smoker Years of Tobacco use: 15 Used Tobacco, but Quit: Yes Month/Year Tobacco Last Used: 19 years ago. Tobacco Use Comment: patient quit smoking 19 years ago. Second Hand Smoke Exposure: No - Caffeine Use Caffeine Use: Reports: Coffee, Soda - Recreational Drug Use Recreational Drug Use: No - Living Situation & Occupation Living situation: Reports: , with Spouse Occupation: Employed H&P Review of Systems - Review of Systems: Review Of Systems: ROS reveals no pertinent complaints other than HPI. Exam - Exam Exam: See Below - Vital Signs Vital Signs: Last Vital Signs Temp 36.8 C 03/01/18 14:42 Pulse 63 03/01/18 14:42 Resp 16 03/01/18 14:42 BP 130/74 03/01/18 14:42 Pulse Ox 95 03/01/18 14:42 Weight: 105.4 kg - Exam General: Alert, Oriented Neck: Supple Lungs: Clear to Auscultation, Normal Respiratory Effort Cardiovascular: Regular Rate, Regular Rhythm GI/Abdominal Exam: Soft, Non-Tender, No Distention Extremities: Non-Tender, No Pedal Edema Skin: Warm, Dry, Intact - Patient Data Lab Results Last 24 hrs: Laboratory Results - last 24 hr 03/01/18 03/01/18 Range/Units 04:30 04:30 WBC 7.11 (4.0-11.0) K/uL RBC 5.13 (4.50-5.90) M/uL Hgb 15.0 (13.0-17.0) g/dL Hct 43.7 (38.0-50.0) % MCV 85.2 (80.0-98.0) fL MCH 29.2 (27.0-32.0) pg MCHC 34.3 (31.0-37.0) g/dL RDW Std Deviation 50.1 (28.0-62.0) fl RDW Coeff of Robb 17 H (11.0-15.0) % Plt Count 126 L (150-400) K/uL MPV 10.70 (7.40-12.00) fL Neut % (Auto) 57.8 (48.0-80.0) % Lymph % (Auto) 29.3 (16.0-40.0) % [place] % (Auto) 12.1 (0.0-15.0) % Eos % (Auto) 0.7 (0.0-7.0) % Baso % (Auto) 0.1 (0.0-1.5) % Neut # (Auto) 4.1 (1.4-5.7) K/uL Lymph # (Auto) 2.1 (0.6-2.4) K/uL [place] # (Auto) 0.9 H (0.0-0.8) K/uL Eos # (Auto) 0.1 (0.0-0.7) K/uL Baso # (Auto) 0.0 (0.0-0.1) K/uL Nucleated RBC % 0.0 /100WBC Nucleated RBCs # 0 K/uL Sodium 141 (136-148) mmol/L Potassium 3.6 (3.5-5.1) mmol/L Chloride 104 (98-107) mmol/L Carbon Dioxide 30.3 (21.0-32.0) mmol/L BUN 17 (7.0-18.0) mg/dL Creatinine 1.4 H (0.8-1.3) mg/dL Est Cr Clr Drug Dosing 59.76 mL/min Estimated GFR (MDRD) 51.7 ml/min Glucose 159 H (74-106) mg/dL Calcium 9.4 (8.5-10.1) mg/dL Total Bilirubin 0.4 (0.2-1.0) mg/dL AST 45 H (15-37) IU/L ALT 38 (14-63) IU/L Alkaline Phosphatase 110 (46-116) U/L Total Protein 7.5 (6.4-8.2) g/dL Albumin 3.7 (3.4-5.0) g/dL Globulin 3.8 H (2.0-3.5) g/dL Albumin/Globulin Ratio 1.0 L (1.3-2.8) Lipase 693 H (73-393) U/L Result Diagrams: 03/01/18 04:30 03/01/18 04:30 Problem List Initiated/Reviewed/Updated: Yes Orders Last 24hrs: Active Orders 24 hr Category Date Time Status Patient Status [ADT] Stat ADT 03/01/18 06:57 Active EKG 12 Lead [EKG Documentation Completion] [RC] STAT Care 03/01/18 04:38 Active Notify Provider Consults [RC] ASDIRECTED Care 03/01/18 07:00 Active Oxygen Therapy [RC] PRN Care 03/01/18 15:23 Ordered Up ad Jaycee [RC] ASDIRECTED Care 03/01/18 15:23 Ordered VTE/DVT Education [RC] PER UNIT ROUTINE Care 03/01/18 15:23 Ordered Vital Signs [RC] Q4H Care 03/01/18 15:23 Ordered Consult to Physician [CONS] Stat Cons 03/01/18 06:59 Active NPO [Nothing Per Oral Diet] [DIET] Diet 03/01/18 Lunch Active Abdomen Pelvis w Cont [CT] Stat Exams 03/01/18 04:33 Taken Chest 2V [CR] Stat Exams 03/01/18 04:33 Taken KUB [Abdomen 1V Flat] [CR] Routine Exams 03/01/18 08:30 Taken CBC WITH AUTO DIFF [HEME] AM Lab 03/02/18 05:11 Ordered CBC WITH AUTO DIFF [HEME] AM Lab 03/03/18 05:11 Ordered COMPREHENSIVE METABOLIC PN,CMP [CHEM] AM Lab 03/02/18 05:11 Ordered COMPREHENSIVE METABOLIC PN,CMP [CHEM] AM Lab 03/03/18 05:11 Ordered UA W/MICROSCOPIC [URIN] Stat Lab 03/01/18 04:33 Ordered HYDROmorphone [Dilaudid] Med 03/01/18 10:28 Active 1 mg IVPUSH Q3H PRN Ondansetron [Zofran] Med 03/01/18 10:28 Active 4 mg IVPUSH Q4H PRN Sodium Chloride 0.9% [Normal Saline] 1,000 ml Med 03/01/18 10:30 Active IV ASDIRECTED Sequential Compression Device [OM.PC] Per Unit Routine Oth 03/01/18 15:23 Ordered Resuscitation Status Routine Resus Stat 03/01/18 15:23 Ordered Medication Orders Hydromorphone HCl (Dilaudid) 1 mg IVPUSH Q3H PRN PRN Reason: Pain Last Admin: 03/01/18 10:59 Dose: 1 mg Sodium Chloride (Normal Saline) 1,000 mls @ 125 mls/hr IV ASDIRECTED JOSE D Last Admin: 03/01/18 12:35 Dose: 125 mls/hr Ondansetron HCl (Zofran) 4 mg IVPUSH Q4H PRN PRN Reason: Nausea/Vomiting Last Admin: 03/01/18 10:59 Dose: 4 mg Assessment/Plan Comment:: 62 yo male admitted with small bowel obstruction. Abdominal pain improved after NG tube placement. We will continue decompression with intermittent suction, with IV fluids and antiemetics.
[2018-03-02] MEDS: Sodium Chloride 0.9% 1,000 ML IV SCH (04:05)
[2018-03-02 07:03] LABS: CHLORIDE,CL 109 mmol/L (98-107); SODIUM,NA 143 mmol/L (136-148)
--- NOTE | 2018-03-02 10:50 | PCM.SURGPN ---
- General Info Date of Service: 03/02/18 - Review of Systems General: Reports: No Symptoms Pulmonary: Reports: No Symptoms (BM X1, well formed, passing gas, denied n/v/sob /chest pain, felt hungry) - Patient Data Vitals - Most Recent: Last Vital Signs Temp 99.0 F 03/02/18 08:00 Pulse 79 03/02/18 08:00 Resp 18 03/02/18 08:00 BP 134/75 03/02/18 08:00 Pulse Ox 93 L 03/02/18 08:00 Weight - Most Recent: 232 lb 5.875 oz I&O - Last 24 Hours: Intake & Output 03/01/18 03/02/18 03/02/18 22:59 06:59 14:59 Intake Total 2237 954 Output Total 800 700 Balance 1437 254 Lab Results Last 24 Hrs: Laboratory Results - last 24 hr 03/02/18 03/02/18 03/02/18 Range/Units 00:39 06:14 06:14 WBC 4.49 (4.0-11.0) K/uL RBC 4.87 (4.50-5.90) M/uL Hgb 13.9 (13.0-17.0) g/dL Hct 41.1 (38.0-50.0) % MCV 84.4 (80.0-98.0) fL MCH 28.5 (27.0-32.0) pg MCHC 33.8 (31.0-37.0) g/dL RDW Std Deviation 49.5 (28.0-62.0) fl RDW Coeff of Robb 17 H (11.0-15.0) % Plt Count 84 L (150-400) K/uL MPV 10.30 (7.40-12.00) fL Neut % (Auto) 67.5 (48.0-80.0) % Lymph % (Auto) 20.9 (16.0-40.0) % [place] % (Auto) 10.7 (0.0-15.0) % Eos % (Auto) 0.7 (0.0-7.0) % Baso % (Auto) 0.2 (0.0-1.5) % Neut # (Auto) 3.0 (1.4-5.7) K/uL Lymph # (Auto) 0.9 (0.6-2.4) K/uL [place] # (Auto) 0.5 (0.0-0.8) K/uL Eos # (Auto) 0.0 (0.0-0.7) K/uL Baso # (Auto) 0.0 (0.0-0.1) K/uL Nucleated RBC % 0.0 /100WBC Nucleated RBCs # 0 K/uL Sodium 143 (136-148) mmol/L Potassium 3.5 (3.5-5.1) mmol/L Chloride 109 H (98-107) mmol/L Carbon Dioxide 25.5 (21.0-32.0) mmol/L BUN 15 (7.0-18.0) mg/dL Creatinine 1.1 (0.8-1.3) mg/dL Est Cr Clr Drug Dosing 76.06 mL/min Estimated GFR (MDRD) > 60.0 ml/min Glucose 95 (74-106) mg/dL Calcium 8.5 (8.5-10.1) mg/dL Total Bilirubin 0.6 (0.2-1.0) mg/dL AST 35 (15-37) IU/L ALT 29 (14-63) IU/L Alkaline Phosphatase 73 (46-116) U/L Total Protein 6.0 L (6.4-8.2) g/dL Albumin 2.9 L (3.4-5.0) g/dL Globulin 3.1 (2.0-3.5) g/dL Albumin/Globulin Ratio 0.9 L (1.3-2.8) Urine Color YELLOW Urine Appearance CLEAR Urine pH 6.0 (5.0-8.0) Ur Specific [place] 1.025 (1.001-1.035) Urine Protein NEGATIVE (NEGATIVE) mg/dL Urine Glucose (UA) NEGATIVE (NEGATIVE) mg/dL Urine Ketones NEGATIVE (NEGATIVE) mg/dL Urine Occult Blood NEGATIVE (NEGATIVE) Urine Nitrite NEGATIVE (NEGATIVE) Urine Bilirubin NEGATIVE (NEGATIVE) Urine Urobilinogen 0.2 (<2.0) EU/dL Ur Leukocyte Esterase NEGATIVE (NEGATIVE) Urine RBC 1-2 (0-2/HPF) Urine WBC 0-2 (0-5/HPF) Ur Epithelial Cells RARE (NONE-FEW) Urine Bacteria FEW (NEGATIVE) Urine Mucus LIGHT (NONE-MOD) Med Orders - Current: Current Medications Hydromorphone HCl (Dilaudid) 1 mg IVPUSH Q3H PRN PRN Reason: Pain Last Admin: 03/01/18 10:59 Dose: 1 mg Sodium Chloride (Normal Saline) 1,000 mls @ 125 mls/hr IV ASDIRECTED JOSE D Last Admin: 03/02/18 04:05 Dose: 125 mls/hr Ondansetron HCl (Zofran) 4 mg IVPUSH Q4H PRN PRN Reason: Nausea/Vomiting Last Admin: 03/01/18 10:59 Dose: 4 mg Discontinued Medications Benzocaine (Hurricaine One 20%) 1 each MUCMEM ONETIME ONE Stop: 03/01/18 08:18 Last Admin: 03/01/18 10:24 Dose: Not Given Benzocaine (Hurricaine One 20%) Confirm Administered Dose 1 each MUCMEM .STK- MED ONE Stop: 03/01/18 08:18 Last Admin: 03/01/18 10:24 Dose: Not Given Hydromorphone HCl (Dilaudid) 1 mg IVPUSH ONETIME ONE Stop: 03/01/18 06:41 Last Admin: 03/01/18 06:46 Dose: 1 mg Sodium Chloride (Normal Saline) 1,000 mls @ 125 mls/hr IV .Bolus ONE Stop: 03/01/18 12:32 Last Admin: 03/01/18 04:36 Dose: 125 mls/hr Iopamidol (Isovue Multipack-370 (76%)) 75 ml IVPUSH ONETIME STA Stop: 03/01/18 06:26 Last Admin: 03/01/18 06:26 Dose: 75 ml Morphine Sulfate (Morphine) 2 mg IVPUSH NOW STA Stop: 03/01/18 05:40 Last Admin: 03/01/18 05:43 Dose: 2 mg Morphine Sulfate (Morphine) Confirm Administered Dose 2 mg .ROUTE .STK-MED ONE Stop: 03/01/18 05:42 Last Admin: 03/01/18 06:13 Dose: Not Given Ondansetron HCl (Zofran) 4 mg IVPUSH ONETIME ONE Stop: 03/01/18 04:28 Last Admin: 03/01/18 04:37 Dose: 4 mg Pantoprazole Sodium (Protonix Iv) 80 mg IVPUSH NOW ONE Stop: 03/01/18 06:46 Last Admin: 03/01/18 06:48 Dose: 80 mg - Exam General: Alert, Oriented GI/Abdominal Exam: Normal Bowel Sounds, Soft, Non-Tender - Problem List Review Problem List Initiated/Reviewed/Updated: Yes - My Orders Last 24 Hours: Active Orders 24 hr Category Date Time Status Nasogastric Tube Management [Gastrointestinal Tube Mgmt Care 03/01/18 16:21 Active ] [RC] Q12H Oxygen Therapy [RC] PRN Care 03/01/18 15:23 Active Up ad Jaycee [RC] ASDIRECTED Care 03/01/18 15:23 Active Vital Signs [RC] Q4H Care 03/01/18 15:23 Active NPO [Nothing Per Oral Diet] [DIET] Diet 03/01/18 Lunch Active CBC WITH AUTO DIFF [HEME] AM Lab 03/03/18 05:11 Ordered COMPREHENSIVE METABOLIC PN,CMP [CHEM] AM Lab 03/03/18 05:11 Ordered UA W/MICROSCOPIC [URIN] Stat Lab 03/02/18 00:39 Ordered HYDROmorphone [Dilaudid] Med 03/01/18 10:28 Active 1 mg IVPUSH Q3H PRN Ondansetron [Zofran] Med 03/01/18 10:28 Active 4 mg IVPUSH Q4H PRN Sodium Chloride 0.9% [Normal Saline] 1,000 ml Med 03/01/18 10:30 Active IV ASDIRECTED Sequential Compression Device [OM.PC] Per Unit Routine Oth 03/01/18 15:23 Ordered Resuscitation Status Routine Resus Stat 03/01/18 15:23 Ordered Medication Orders Hydromorphone HCl (Dilaudid) 1 mg IVPUSH Q3H PRN PRN Reason: Pain Last Admin: 03/01/18 10:59 Dose: 1 mg Sodium Chloride (Normal Saline) 1,000 mls @ 125 mls/hr IV ASDIRECTED JOSE D Last Admin: 03/02/18 04:05 Dose: 125 mls/hr Infusion: 03/02/18 04:05 Dose: 125 mls/hr Infusion: 03/02/18 04:04 Dose: 125 mls/hr Admin: 03/01/18 20:26 Dose: 125 mls/hr Infusion: 03/01/18 20:26 Dose: 125 mls/hr Infusion: 03/01/18 20:25 Dose: 125 mls/hr Admin: 03/01/18 12:35 Dose: 125 mls/hr Ondansetron HCl (Zofran) 4 mg IVPUSH Q4H PRN PRN Reason: Nausea/Vomiting Last Admin: 03/01/18 10:59 Dose: 4 mg - Assessment Assessment (Free Text/Narrative):: resolving ileus, clamp ngt X2 hr; if tolerate, dc ngt to clear liquid diet, if slade, home on clear liquid diet X 3 days, then advance, fu w 1 - 2 wk - Plan Plan (Free Text/Narrative):: resolving ileus, clamp ngt X2 hr; if tolerate, dc ngt to clear liquid diet, if slade, home on clear liquid diet X 3 days, then advance, fu w 1 - 2 wk
--- NOTE | 2018-03-02 16:39 | PCM.DCSUM1 ---
Discharge Summary - Discharge Data Discharge Date: 03/02/18 Discharge Disposition: Home, Self-Care 01 Condition: Fair - Patient Summary/Data Consults: Consultations 03/01/18 06:59 Consult to Physician [CONS] Stat Hospital Course: 62 yo male with pmh of esophageal cancer who presents to the ED with one night history of abdominal pain, nausea and vomiting. Patient reported severe abdominal cramping and gas. His last bowel movement was 2 am which reports was solid. He denies any fevers, blood in stool or vomit. CT scan of abdomen reports small bowel obstruction with transition point in distal small bowel. Dr. Rubin was consulted in the ED and NG tube was placed. Patient was treated with IV fluids and antiemetics. His abdominal pain did resolve and he continued to pass stool and gas. NG tube was pulled and he tolerated a clear liquid diet. He was discharged home and instructed on a clear liquid diet for three days and follow up with Dr. Rubin in clinic. - Patient Instructions Diet: Clear Liquid Diet - Discharge Plan Home Medications: Home Meds LORazepam 1 tab PO ASDIRECTED PRN 07/25/17 [History] Ondansetron [Zofran] 8 mg PO ASDIRECTED PRN 07/25/17 [History] Prochlorperazine Maleate 10 mg PO ASDIRECTED PRN 07/25/17 [History] Patient Handouts: Small Bowel Obstruction, [id number] Referrals: Cody Rubin MD [Physician] - - Patient Data Vitals - Most Recent: Last Vital Signs Temp 36.3 C 03/02/18 12:00 Pulse 64 03/02/18 12:00 Resp 20 03/02/18 12:00 BP 128/81 03/02/18 12:00 Pulse Ox 95 03/02/18 12:00 Weight - Most Recent: 105.4 kg I&O - Last 24 hours: Intake & Output 03/02/18 03/02/18 03/02/18 06:59 14:59 22:59 Intake Total 954 1350 Output Total 700 1200 Balance 254 150 Lab Results - Last 24 hrs: Laboratory Results - last 24 hr 03/02/18 03/02/18 03/02/18 Range/Units 00:39 06:14 06:14 WBC 4.49 (4.0-11.0) K/uL RBC 4.87 (4.50-5.90) M/uL Hgb 13.9 (13.0-17.0) g/dL Hct 41.1 (38.0-50.0) % MCV 84.4 (80.0-98.0) fL MCH 28.5 (27.0-32.0) pg MCHC 33.8 (31.0-37.0) g/dL RDW Std Deviation 49.5 (28.0-62.0) fl RDW Coeff of Robb 17 H (11.0-15.0) % Plt Count 84 L (150-400) K/uL MPV 10.30 (7.40-12.00) fL Neut % (Auto) 67.5 (48.0-80.0) % Lymph % (Auto) 20.9 (16.0-40.0) % [place] % (Auto) 10.7 (0.0-15.0) % Eos % (Auto) 0.7 (0.0-7.0) % Baso % (Auto) 0.2 (0.0-1.5) % Neut # (Auto) 3.0 (1.4-5.7) K/uL Lymph # (Auto) 0.9 (0.6-2.4) K/uL [place]y # (Auto) 0.5 (0.0-0.8) K/uL Eos # (Auto) 0.0 (0.0-0.7) K/uL Baso # (Auto) 0.0 (0.0-0.1) K/uL Nucleated RBC % 0.0 /100WBC Nucleated RBCs # 0 K/uL Sodium 143 (136-148) mmol/L Potassium 3.5 (3.5-5.1) mmol/L Chloride 109 H (98-107) mmol/L Carbon Dioxide 25.5 (21.0-32.0) mmol/L BUN 15 (7.0-18.0) mg/dL Creatinine 1.1 (0.8-1.3) mg/dL Est Cr Clr Drug Dosing 76.06 mL/min Estimated GFR (MDRD) > 60.0 ml/min Glucose 95 (74-106) mg/dL Calcium 8.5 (8.5-10.1) mg/dL Total Bilirubin 0.6 (0.2-1.0) mg/dL AST 35 (15-37) IU/L ALT 29 (14-63) IU/L Alkaline Phosphatase 73 (46-116) U/L Total Protein 6.0 L (6.4-8.2) g/dL Albumin 2.9 L (3.4-5.0) g/dL Globulin 3.1 (2.0-3.5) g/dL Albumin/Globulin Ratio 0.9 L (1.3-2.8) Urine Color YELLOW Urine Appearance CLEAR Urine pH 6.0 (5.0-8.0) Ur Specific [place] 1.025 (1.001-1.035) Urine Protein NEGATIVE (NEGATIVE) mg/dL Urine Glucose (UA) NEGATIVE (NEGATIVE) mg/dL Urine Ketones NEGATIVE (NEGATIVE) mg/dL Urine Occult Blood NEGATIVE (NEGATIVE) Urine Nitrite NEGATIVE (NEGATIVE) Urine Bilirubin NEGATIVE (NEGATIVE) Urine Urobilinogen 0.2 (<2.0) EU/dL Ur Leukocyte Esterase NEGATIVE (NEGATIVE) Urine RBC 1-2 (0-2/HPF) Urine WBC 0-2 (0-5/HPF) Ur Epithelial Cells RARE (NONE-FEW) Urine Bacteria FEW (NEGATIVE) Urine Mucus LIGHT (NONE-MOD) Med Orders - Current: Current Medications Discontinued Medications Benzocaine (Hurricaine One 20%) 1 each MUCMEM ONETIME ONE Stop: 03/01/18 08:18 Last Admin: 03/01/18 10:24 Dose: Not Given Benzocaine (Hurricaine One 20%) Confirm Administered Dose 1 each MUCMEM .STK- MED ONE Stop: 03/01/18 08:18 Last Admin: 03/01/18 10:24 Dose: Not Given Hydromorphone HCl (Dilaudid) 1 mg IVPUSH ONETIME ONE Stop: 03/01/18 06:41 Last Admin: 03/01/18 06:46 Dose: 1 mg Hydromorphone HCl (Dilaudid) 1 mg IVPUSH Q3H PRN PRN Reason: Pain Last Admin: 03/01/18 10:59 Dose: 1 mg Sodium Chloride (Normal Saline) 1,000 mls @ 125 mls/hr IV .Bolus ONE Stop: 03/01/18 12:32 Last Admin: 03/01/18 04:36 Dose: 125 mls/hr Sodium Chloride (Normal Saline) 1,000 mls @ 125 mls/hr IV ASDIRECTED JOSE D Last Admin: 03/02/18 04:05 Dose: 125 mls/hr Iopamidol (Isovue Multipack-370 (76%)) 75 ml IVPUSH ONETIME STA Stop: 03/01/18 06:26 Last Admin: 03/01/18 06:26 Dose: 75 ml Morphine Sulfate (Morphine) 2 mg IVPUSH NOW STA Stop: 03/01/18 05:40 Last Admin: 03/01/18 05:43 Dose: 2 mg Morphine Sulfate (Morphine) Confirm Administered Dose 2 mg .ROUTE .STK-MED ONE Stop: 03/01/18 05:42 Last Admin: 03/01/18 06:13 Dose: Not Given Ondansetron HCl (Zofran) 4 mg IVPUSH ONETIME ONE Stop: 03/01/18 04:28 Last Admin: 03/01/18 04:37 Dose: 4 mg Ondansetron HCl (Zofran) 4 mg IVPUSH Q4H PRN PRN Reason: Nausea/Vomiting Last Admin: 03/01/18 10:59 Dose: 4 mg Pantoprazole Sodium (Protonix Iv) 80 mg IVPUSH NOW ONE Stop: 03/01/18 06:46 Last Admin: 03/01/18 06:48 Dose: 80 mg
--- NOTE | 2018-03-03 11:09 | CR ---
EXAM DATE: 03/01/18 PATIENT'S AGE: 62 Patient: ML QUARLES Facility: [place], [place] Site . Site : 1955 Study: XRay Chest [id number]/1/2018 6:07:30 AM Ordering Physician: Doctor Vaughn Final Report: INDICATION: upper abd pain COMPARISON: Chest x-ray dated 30 July 2017. FINDINGS: Two PA chest x-rays and a single lateral chest x-ray show a left-sided Port-A- Cath. Normal cardiac silhouette. Tortuous aorta. The lungs show no focal pulmonary opacities. Sharp pleural margins. No pneumothorax. Surgical clips in the epigastrium. IMPRESSION: No evidence of acute pulmonary abnormalities. Dictated by Khoa Montilla MD @ 03/01/2018 6:57:19 AM Dictated by: Khoa Montilla MD @ 03/01/2018 06:57:31 (Electronic Signature) Report Signed by Proxy. OSIRIS
--- NOTE | 2018-03-03 11:10 | CT ---
EXAM DATE: 03/01/18 PATIENT'S AGE: 62 Patient: ML QUARLES Facility: [place], [place] Site . Site : 1955 Study: CT Abdomen/Pelvis [id number]/1/2018 6:17:36 AM Ordering Physician: Doctor Vaughn Final Report: INDICATION: abd pain TECHNIQUE: CT scan of the abdomen and pelvis with 75 cc of Isovue-370 given intravenously. COMPARISON: CT scan of the abdomen dated 08 July 2017. FINDINGS: The lung bases show interlobular septal thickening in the right lung base. 5 mm pulmonary nodule in the right lower lobe best seen on image 7 of series 201 is decreased in size. No focal abnormalities identified in the visualized portions of the liver, spleen, pancreas, and adrenal glands. Small cyst in the interpolar region of the right kidney. The kidneys are otherwise unremarkable. No hydronephrosis. No obstructing uroliths. Dilated loops of proximal and mid small bowel with a transition point in the distal small bowel best seen on image 115 of series 201. Distended stomach. Surgical clips around the cardia of the stomach. Normal appendix. No retroperitoneal, pelvic sidewall, or mesenteric adenopathy. IMPRESSION: 1. Small-bowel obstruction with a transition point in the distal small bowel. 2. Interlobular septal thickening in the right lung base may represent pulmonary edema. 3. 5 mm pulmonary nodule in the right middle lobe is decreased in size. Dictated by Khoa Montilla MD @ 03/01/2018 7:07:52 AM Dictated by: Khoa Montilla MD @ 03/01/2018 07:08:01 (Electronic Signature) Report Signed by Proxy. OSIRIS
--- NOTE | 2018-03-03 11:11 | CR ---
EXAM DATE: 03/01/18 PATIENT'S AGE: 62 Patient: ML QUARLES Facility: [place], [place] Site . Site : 1955 Study: XRay Abdomen [id number]/1/2018 9:01:28 AM Ordering Physician: Jose Barraza Final Report: INDICATION: NG tube placement COMPARISON: CT scan of the abdomen and pelvis dated 01 March 2018. FINDINGS: Two views of the abdomen show an enteric tube in place which is curled in the stomach with the distal tip extending into the antrum of the stomach. Dilated loops of small bowel are unchanged. No evidence of free intraperitoneal air. Contrast in the urinary bladder. Dictated by Khoa Montilla MD @ 03/01/2018 9:18:45 AM Dictated by: Khoa Montilla MD @ 03/01/2018 09:18:53 (Electronic Signature) Report Signed by Proxy. [facility] MEDICAL CENTERHoang
--- NOTE | 2018-03-04 10:24 | CONS ---
DATE OF CONSULTATION: 03/01/2018 DATE OF : 1955 PRIMARY CARE PHYSICIAN: Killian Do M.D. CONCERNING QUESTION: Distended abdomen. HISTORY OF PRESENT ILLNESS: The patient is a 62-year-old gentleman, complaining about 6-hour history of acute onset of epigastric pain and pain is on the pain scale of 7/10, wake him up at night, and he believes it is because he has very big meal and hot and chilly and acid reflux problem per the patient. Pain did not get better. Sought help in the emergency room, and CAT scan shows small bowel obstruction with a transition point; however, the patient mentioned that the pain is getting much better and is on the pain scale of 5/10, and the patient had a well-formed bowel movement several hours before coming to the emergency room and currently has no nausea or vomiting. The patient had similar episode 8 months ago and was treated with NG tube and resolved and sent home. He had Miguel fundoplication 20 years ago at [facility], and recently, he was diagnosed with esophageal cancer and is currently getting chemotherapy treatment. PAST MEDICAL HISTORY: Significant for no diabetes, OH, CVA, or hypertension, but carries a diagnosis of esophageal cancer, stage IV. PAST SURGICAL HISTORY: EGD done. ALLERGIES AND MEDICATIONS: Please refer to nursing for details. FAMILY HISTORY: Noncontributory. PHYSICAL EXAMINATION: GENERAL: Very pleasant nice gentleman, in no acute distress. HEENT: Normocephalic and atraumatic. Sclerae are anicteric. LUNGS: Clear to auscultation. HEART: Regular rate and rhythm. ABDOMEN: Soft, but distended and nontender. Diminished bowel sounds. LABORATORY DATA: White count on admission was seven and H and H is 15 and 44, and BUN is 17, creatinine is 1.4. Lipase is 693, and CEA is 2.2. IMPRESSION: Distended abdomen with air-fluid level, ileus versus obstruction. Proceed with NG tube insertion and follow serial abdominal exam and x-ray and keep potassium above 4.0 to prevent chemical ileus. We will follow the patient with you. YOSVANY / ROCÍO /[id number]
== END 2018-03-02 15:30 | disposition home or self-care (01) | DRG 247 ==
LOC: MW.ED 04:22 → MW.MS 06:57
PROVIDERS: ADMIT Internal Medicine; ATTEND Internal Medicine
PROC: 0D9670Z Drainage of Stomach with Drainage Device, Via Natural or Artificial Opening (ICD-10-PCS; principal; 2018-03-01)
DX: K56.609 Unspecified intestinal obstruction, unspecified as to partial versus complete obstruction (principal); C15.9 Malignant neoplasm of esophagus, unspecified; F41.9 Anxiety disorder, unspecified; Z88.8 Allergy status to other drugs, medicaments and biological substances; Z79.899 Other long term (current) drug therapy; Z87.891 Personal history of nicotine dependence
CPT/HCPCS: 36415; 71046; 71046-26; 74018; 74018-26; 74177; 74177-26; 80053; 81001; 83690; 85025; 93005; 96361; 96374; 96375; 99285-25; C9113; J1170; J2270; J2405; J7040; Q9967

== ENCOUNTER 2018-08-07 12:20 | Observation (INO) | payer BC ==
[2018-08-07] MEDS ORDERED: Sodium Chloride 0.9% 10 ML Syringe FLUSH PRN (12:36)
[2018-08-07] MEDS ORDERED: Sodium Chloride 0.9% 2.5 ML Syringe FLUSH PRN (12:36)
[2018-08-07] MEDS ORDERED: Ondansetron 4 MG/2 ML SDV IVPUSH ONE (12:36)
[2018-08-07] MEDS ORDERED: Sodium Chloride 0.9% 1,000 ML IV ONE (12:36)
--- NOTE | 2018-08-07 12:36 | EDM.PDOC ---
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 Patient has not had any vomiting, fevers, chills or diarrhea. He is followed by Dr. Overton in the oncology clinic. Review of systems: As per history of present illness and below otherwise all systems reviewed and negative. Past medical history: As per history of present illness and as reviewed below otherwise noncontributory. Surgical history: As per history of present illness and as reviewed below otherwise noncontributory. Social history: No reported history of drug or alcohol abuse. Family history: As per history of present illness and as reviewed below otherwise noncontributory. Physical exam: General: Well developed, well nourished in NAD, pale HEENT: Atraumatic, normocephalic, pupils reactive, negative for conjunctival pallor or scleral icterus, mucous membranes moist, throat clear, neck supple, nontender, trachea midline. Lungs: Clear to auscultation, breath sounds equal bilaterally, chest nontender. Heart: S1S2, regular, negative for clicks, rubs, or JVD. Abdomen: NABS, Soft, nondistended, nontender. Negative for masses or hepatosplenomegaly. Negative for costovertebral tenderness. Pelvis: Stable nontender. Genitourinary: Deferred. Rectal: Deferred. Extremities: Atraumatic, negative for cords or calf pain. Neurovascular unremarkable. Neuro: Awake, alert, oriented. Cranial nerves II through XII unremarkable. Cerebellum unremarkable. Motor and sensory unremarkable throughout. Exam nonfocal. Skin:warm and dry Diagnostics: CBC, chemistry, MRI/as previously scheduled showing enhancing lesions consistent with brain metastases Therapeutics: Zofran, IV fluids ED Course: Unchanged Impression: Esophageal cancer with diffuse metastases to bone, liver and brain Prescriptions: None Plan: Admit for observation for IV hydration, anti-emetics and pain control. Dr. Vincent will admit for observation Definitive disposition and diagnosis as appropriate pending reevaluation and review of above. - Related Data Allergies Allergy/AdvReac Type Severity Reaction Status Date / Time pseudoephedrine Allergy Shaking Verified 08/07/18 12:24 [From Sudafed] Home Meds: Home Meds LORazepam 1 tab PO ASDIRECTED PRN 07/25/17 [History] Ondansetron [Zofran] 8 mg PO ASDIRECTED PRN 07/25/17 [History] Prochlorperazine Maleate 10 mg PO ASDIRECTED PRN 07/25/17 [History] Past Medical History HEENT History: Reports: None Other HEENT History: wears glasses, has top and bottom partial Cardiovascular History: Reports: None Respiratory History: Reports: None Gastrointestinal History: Reports: None Other Gastrointestinal History: recently in the hospital for small bowel obstruction Genitourinary History: Reports: None Musculoskeletal History: Reports: None, Arthritis Other Musculoskeletal History: hx fx ankle Neurological History: Reports: None Psychiatric History: Reports: Anxiety Endocrine/Metabolic History: Reports: Obesity/BMI 30+ Hematologic History: Reports: None Immunologic History: Reports: Immunosuppression Oncologic (Cancer) History: Reports: Esophageal Other Oncologic History: on chemotherapy, once every 3 weeks (pt with port for chemo) Dermatologic History: Reports: None - Infectious Disease History Infectious Disease History: Reports: None - Past Surgical History Head Surgeries/Procedures: Reports: None HEENT Surgical History: Reports: None Cardiovascular Surgical History: Reports: None Respiratory Surgical History: Reports: None GI Surgical History: Reports: Colonoscopy, Miguel Fundoplication, Other (See Below) Male Surgical History: Reports: None Endocrine Surgical History: Reports: None Neurological Surgical History: Reports: None Musculoskeletal Surgical History: Reports: None Oncologic Surgical History: Reports: None Dermatological Surgical History: Reports: None Social & Family History - Family History Family Medical History: Noncontributory - Tobacco Use Smoking Status *Q: Former Smoker Used Tobacco, but Quit: Yes Month/Year Tobacco Last Used: 1998 - Caffeine Use Caffeine Use: Reports: None - Recreational Drug Use Recreational Drug Use: No - Living Situation & Occupation Living situation: Reports: , with Spouse Occupation: Employed ED ROS GENERAL - Review of Systems Review Of Systems: ROS reveals no pertinent complaints other than HPI. ED EXAM, GENERAL - Physical Exam Exam: See Below (See history of present illness) Course - Vital Signs Last Recorded V/S: Last Vital Signs Temp 96.0 F 02/07/19 12:21 Pulse 74 08/07/18 14:21 Resp 18 08/07/18 14:21 BP 146/84 H 08/07/18 14:21 Pulse Ox 95 08/07/18 14:21 - Orders/Labs/Meds Orders: Active Orders 24 hr Category Date Time Status Sodium Chloride 0.9% [Saline Flush] Med 08/07/18 12:36 Active 10 ml FLUSH ASDIRECTED PRN Sodium Chloride 0.9% [Saline Flush] Med 08/07/18 12:36 Active 2.5 ml FLUSH ASDIRECTED PRN Saline Lock Insert [OM.PC] Stat Oth 08/07/18 12:35 Ordered Medication Orders Sodium Chloride (Saline Flush) 10 ml FLUSH ASDIRECTED PRN PRN Reason: Keep Vein Open Sodium Chloride (Saline Flush) 2.5 ml FLUSH ASDIRECTED PRN PRN Reason: Keep Vein Open Labs: Laboratory Tests 08/07/18 08/07/18 Range/Units 13:00 13:00 WBC 6.94 (4.0-11.0) K/uL RBC 5.01 (4.50-5.90) M/uL Hgb 14.7 (13.0-17.0) g/dL Hct 42.0 (38.0-50.0) % MCV 83.8 (80.0-98.0) fL MCH 29.3 (27.0-32.0) pg MCHC 35.0 (31.0-37.0) g/dL RDW Std Deviation 45.7 (28.0-62.0) fl RDW Coeff of Robb 15 (11.0-15.0) % Plt Count 142 L (150-400) K/uL MPV 10.80 (7.40-12.00) fL Neut % (Auto) 85.2 H (48.0-80.0) % Lymph % (Auto) 7.5 L (16.0-40.0) % Sierra % (Auto) 7.2 (0.0-15.0) % Eos % (Auto) 0.0 (0.0-7.0) % Baso % (Auto) 0.1 (0.0-1.5) % Neut # (Auto) 5.9 H (1.4-5.7) K/uL Lymph # (Auto) 0.5 L (0.6-2.4) K/uL Sierra # (Auto) 0.5 (0.0-0.8) K/uL Eos # (Auto) 0.0 (0.0-0.7) K/uL Baso # (Auto) 0.0 (0.0-0.1) K/uL Nucleated RBC % 0.0 /100WBC Nucleated RBCs # 0 K/uL Sodium 139 (136-148) mmol/L Potassium 3.8 (3.5-5.1) mmol/L Chloride 102 (98-107) mmol/L Carbon Dioxide 23.7 (21.0-32.0) mmol/L BUN 19 H (7.0-18.0) mg/dL Creatinine 0.9 (0.8-1.3) mg/dL Est Cr Clr Drug Dosing 92.96 mL/min Estimated GFR (MDRD) > 60.0 ml/min Glucose 146 H (74-106) mg/dL Calcium 9.8 (8.5-10.1) mg/dL Total Bilirubin 1.0 (0.2-1.0) mg/dL AST 78 H (15-37) IU/L ALT 30 (14-63) IU/L Alkaline Phosphatase 167 H (46-116) U/L Total Protein 7.5 (6.4-8.2) g/dL Albumin 3.6 (3.4-5.0) g/dL Globulin 3.9 (2.6-4.0) g/dL Albumin/Globulin Ratio 0.9 (0.9-1.6) Meds: Medications Generic Name Dose Route Start Last Admin Trade Name Freq PRN Reason Stop Dose Admin Sodium Chloride 10 ml 08/07/18 12:36 Saline Flush FLUSH ASDIRECTED PRN Keep Vein Open Sodium Chloride 2.5 ml 08/07/18 12:36 Saline Flush FLUSH ASDIRECTED PRN Keep Vein Open Discontinued Medications Generic Name Dose Route Start Last Admin Trade Name Freq PRN Reason Stop Dose Admin Gadobenate Dimeglumine 20 ml 08/07/18 13:23 08/07/18 13:24 Multihance IVPUSH 08/07/18 13:24 19 ml ONETIME STA Administration Sodium Chloride 1,000 mls @ 999 mls/hr 08/07/18 12:36 08/07/18 13:01 Normal Saline IV 08/07/18 13:36 999 mls/hr .Bolus ONE Administration Ondansetron HCl 4 mg 08/07/18 12:36 08/07/18 13:01 Zofran IVPUSH 08/07/18 12:37 4 mg ONETIME ONE Administration Departure - Departure Time of Disposition: 14:25 Disposition: Refer to Observation Condition: Fair Clinical Impression: Metastasis from esophageal cancer - Discharge Information *PRESCRIPTION DRUG MONITORING PROGRAM REVIEWED*: No *COPY OF PRESCRIPTION DRUG MONITORING REPORT IN PATIENT FACUNDO: No Referrals: Killian Do MD [Primary Care Provider] - Forms: ED Department Discharge - My Orders Last 24 Hours: My Active Orders 08/07/18 12:35 Saline Lock Insert [OM.PC] Stat 08/07/18 12:36 Sodium Chloride 0.9% [Saline Flush] 10 ml FLUSH ASDIRECTED PRN Sodium Chloride 0.9% [Saline Flush] 2.5 ml FLUSH ASDIRECTED PRN - Assessment/Plan Last 24 Hours: My Active Orders 08/07/18 12:35 Saline Lock Insert [OM.PC] Stat 08/07/18 12:36 Sodium Chloride 0.9% [Saline Flush] 10 ml FLUSH ASDIRECTED PRN Sodium Chloride 0.9% [Saline Flush] 2.5 ml FLUSH ASDIRECTED PRN
[2018-08-07] MEDS ORDERED: Gadobenate Dimeglumine 529 MG/ML 20 ML SDV IVPUSH STA (13:23)
[2018-08-07 13:32] LABS: CHLORIDE,CL 102 mmol/L (98-107); SODIUM,NA 139 mmol/L (136-148)
--- NOTE | 2018-08-07 14:08 | MR ---
EXAMINATION: MRI of the brain with and without contrast. Technique: Multiplanar and multisequence imaging of the brain without and following 19 cc of Multihance contrast. HISTORY: Esophageal cancer. FINDINGS: There are several small multifocal ring-enhancing lesions within the cerebrum bilaterally and most prominently within the right aspect of the cerebellum. The largest lesion within the cerebellum measures 1.9 x 1 cm with moderate adjacent edema. There is mild mass effect on the fourth ventricle. 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 There is no true diffusion restriction identified. Areas of T2 shine through are noted within the regions of increased FLAIR signal and edema. No extra-axial fluid collections. Otherwise small focal periventricular and subcortical white matter FLAIR intensities are noted, likely small vessel ischemic changes. Expected flow voids are present. Orbits and globes are symmetric. Moderate mucosal thickening within the left maxillary sinus. Mastoid air cells and middle ears are clear. Craniocervical junction is otherwise normal. Midline structures are otherwise preserved. No definitive calvarial lesion identified. IMPRESSION: 1. Multiple small ring-enhancing lesions within the cerebrum and cerebellum. Given history of esophageal cancer these most likely represent metastases. 2. There is also leptomeningeal enhancement and edema within the cerebellum. This may be secondary to the adjacent metastatic disease, however underlying meningitis is also not excluded. 3. Mild small vessel ischemic changes.
[2018-08-07] MEDS ORDERED: Dexamethasone 10 MG/ML SDV ONE (14:57)
[2018-08-07] MEDS ORDERED: Vancomycin 1 GM AdvVial ONE ×2 (14:57→14:59)
[2018-08-07] MEDS ORDERED: Sodium Chloride 0.9% 250 ML ONE (15:01)
[2018-08-07] MEDS ORDERED: cefTRIAXone 1 GM in Premix Bag 1 BAG IV ONE ×2 (15:05→15:52)
--- NOTE | 2018-08-07 15:33 | PCM.HP ---
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 He reports dry heaves, posterior headache, and discoordination. He has felt like he is off balance. No visual concerns or blurred vision. No cough or fevers at home. No chest pain or SOB. No abdominal pain, urinary concerns or black or bloody BMs. Last chemotherapy treatment was 1 month ago, no history of radiation. In the ED labwork WNL, no leukocytosis or bandemia. MRI with and without contrast obtained and revealed multiple ring enhancing lesion within the cerebrum and cerebellum. Also leptomeningeal enhancement and edema within the cerebellum, may be secondary to the adjacent metastatic disease however underlying meningitis is also not excluded. Dr Overton recommended treatment with Decadron 10 mg IV initially followed by 4 mg every 6 hours, as well as Rocephin and Vancomycin for suspected meningitis, even thought suspicion is low due to no other clinical findings or symptoms. Blood cultures drawn yesterday, so far negative. Will not re-draw since no fevers have been noted. Upon entering ED room with Dr Vincent, daughters and at bedside speaking with Dr Overton, Oncologist regarding MRI findings and his plan for treatment. They are all aware of MRI findings and treatment at this time. - Related Data Allergies/Adverse Reactions: Allergies Allergy/AdvReac Type Severity Reaction Status Date / Time pseudoephedrine Allergy Shaking Verified 08/07/18 12:24 [From Sudafed] Home Medications: Home Meds LORazepam 1 tab PO ASDIRECTED PRN 07/25/17 [History] Ondansetron [Zofran] 8 mg PO ASDIRECTED PRN 07/25/17 [History] Prochlorperazine Maleate 10 mg PO ASDIRECTED PRN 07/25/17 [History] Past Medical History HEENT History: Reports: None Other HEENT History: wears glasses, has top and bottom partial Cardiovascular History: Reports: None Respiratory History: Reports: None Gastrointestinal History: Reports: Bowel Obstruction (approximately 1 year ago.) Genitourinary History: Reports: None Musculoskeletal History: Reports: None, Arthritis Other Musculoskeletal History: hx fx ankle Neurological History: Reports: None Psychiatric History: Reports: Anxiety Endocrine/Metabolic History: Reports: Obesity/BMI 30+ Hematologic History: Reports: None Immunologic History: Reports: Immunosuppression Oncologic (Cancer) History: Reports: Esophageal Other Oncologic History: on chemotherapy, once every 3 weeks (pt with port for chemo) Dermatologic History: Reports: None - Infectious Disease History Infectious Disease History: Reports: None - Past Surgical History Head Surgeries/Procedures: Reports: None HEENT Surgical History: Reports: None Cardiovascular Surgical History: Reports: None Respiratory Surgical History: Reports: None GI Surgical History: Reports: Colonoscopy, EGD, Miguel Fundoplication Male Surgical History: Reports: None Endocrine Surgical History: Reports: None Neurological Surgical History: Reports: None Musculoskeletal Surgical History: Reports: None Oncologic Surgical History: Reports: None Dermatological Surgical History: Reports: None Social & Family History - Family History Family Medical History: Noncontributory - Tobacco Use Smoking Status *Q: Former Smoker Used Tobacco, but Quit: Yes Month/Year Tobacco Last Used: 1998 - Caffeine Use Caffeine Use: Reports: None - Recreational Drug Use Recreational Drug Use: No - Living Situation & Occupation Living situation: Reports: , with Spouse Occupation: Employed H&P Review of Systems - Review of Systems: Review Of Systems: See Below General: Reports: Weakness, Decreased Appetite. Denies: Fever, Chills HEENT: Reports: Headaches (posteriorly). Denies: Sinus Congestion, Sore Throat , Vertigo Pulmonary: Reports: No Symptoms. Denies: Shortness of Breath, Wheezing Cardiovascular: Reports: No Symptoms. Denies: Chest Pain, Edema, Lightheadedness Gastrointestinal: Reports: Anorexia, Nausea. Denies: Abdominal Pain, Black Stool, Bloody Stool, Vomiting Musculoskeletal: Denies: Neck Pain Skin: Reports: No Symptoms Psychiatric: Reports: Anxiety. Denies: Confusion Neurological: Reports: Headache, Gait Disturbance, Other (off balance feeling) Hematologic/Lymphatic: Reports: No Symptoms Immunologic: Reports: No Symptoms Exam - Exam Exam: See Below - Vital Signs Vital Signs: Last Vital Signs Temp 96.0 F 08/07/18 12:21 Pulse 74 08/07/18 14:21 Resp 18 08/07/18 14:21 BP 146/84 H 08/07/18 14:21 Pulse Ox 95 08/07/18 14:21 Weight: 97.522 kg - Exam General: Alert, Oriented, Cooperative HEENT: Conjunctiva Clear, Mucosa Moist & [place], Nares Patent, Posterior Pharynx Clear Neck: Supple, Trachea Midline, Full Range of Motion, Other (no nuchal rigidity noted.) Lungs: Clear to Auscultation, Normal Respiratory Effort Cardiovascular: Regular Rate, Regular Rhythm GI/Abdominal Exam: Normal Bowel Sounds, Soft, Non-Tender, No Distention, No Mass Back Exam: Normal Inspection, Full Range of Motion Extremities: Normal Inspection, Normal Range of Motion, Non-Tender, No Pedal Edema Skin: Warm, Dry. No: Rash, Pet[place]ia Neurological: Cranial Nerves Intact, Strength Equal Bilateral. No: Normal Gait (some discoordination noted.) Neuro Extensive - Mental Status: Alert, Oriented x3 Neuro Extensive - Motor, Sensory, Reflexes: CN II-XII Intact, Normal Reflexes Psychiatric: Alert, Normal Affect, Normal Mood - Patient Data Lab Results Last 24 hrs: Laboratory Results - last 24 hr 08/07/18 08/07/18 Range/Units 13:00 13:00 WBC 6.94 (4.0-11.0) K/uL RBC 5.01 (4.50-5.90) M/uL Hgb 14.7 (13.0-17.0) g/dL Hct 42.0 (38.0-50.0) % MCV 83.8 (80.0-98.0) fL MCH 29.3 (27.0-32.0) pg MCHC 35.0 (31.0-37.0) g/dL RDW Std Deviation 45.7 (28.0-62.0) fl RDW Coeff of Robb 15 (11.0-15.0) % Plt Count 142 L (150-400) K/uL MPV 10.80 (7.40-12.00) fL Neut % (Auto) 85.2 H (48.0-80.0) % Lymph % (Auto) 7.5 L (16.0-40.0) % Charlton % (Auto) 7.2 (0.0-15.0) % Eos % (Auto) 0.0 (0.0-7.0) % Baso % (Auto) 0.1 (0.0-1.5) % Neut # (Auto) 5.9 H (1.4-5.7) K/uL Lymph # (Auto) 0.5 L (0.6-2.4) K/uL Charlton # (Auto) 0.5 (0.0-0.8) K/uL Eos # (Auto) 0.0 (0.0-0.7) K/uL Baso # (Auto) 0.0 (0.0-0.1) K/uL Nucleated RBC % 0.0 /100WBC Nucleated RBCs # 0 K/uL Sodium 139 (136-148) mmol/L Potassium 3.8 (3.5-5.1) mmol/L Chloride 102 (98-107) mmol/L Carbon Dioxide 23.7 (21.0-32.0) mmol/L BUN 19 H (7.0-18.0) mg/dL Creatinine 0.9 (0.8-1.3) mg/dL Est Cr Clr Drug Dosing 92.96 mL/min Estimated GFR (MDRD) > 60.0 ml/min Glucose 146 H (74-106) mg/dL Calcium 9.8 (8.5-10.1) mg/dL Total Bilirubin 1.0 (0.2-1.0) mg/dL AST 78 H (15-37) IU/L ALT 30 (14-63) IU/L Alkaline Phosphatase 167 H (46-116) U/L Total Protein 7.5 (6.4-8.2) g/dL Albumin 3.6 (3.4-5.0) g/dL Globulin 3.9 (2.6-4.0) g/dL Albumin/Globulin Ratio 0.9 (0.9-1.6) Result Diagrams: 08/07/18 13:00 08/07/18 13:00 *Q Meaningful Use (ADM) - VTE Risk Assess *Q Each Risk Factor Represents 1 Point: None Total Score 1 Point Risk Factors: 0 Each Risk Factor Represents 2 Points: Age 60 - 74 Years, Malignancy (present or previous) Total Score 2 Point Risk Factors: 4 Each Risk Factor Represents 3 Points: None Total Score 3 Point Risk Factors: 0 Each Risk Factor Represents 5 Points: None Total Score 5 Point Risk Factors: 0 Venous Thromboembolism Risk Factor Score *Q: 4 - Problem List (1) Brain metastasis Status: Acute Current Visit: Yes (2) Bacterial meningitis, unspecified SNOMED Code(s): 01007447 ICD Code: G00.9 - BACTERIAL MENINGITIS, UNSPECIFIED Status: Suspected Current Visit: Yes (3) Generalized weakness SNOMED Code(s): 72397021 ICD Code: R53.1 - WEAKNESS Status: Acute Current Visit: Yes (4) Esophageal cancer SNOMED Code(s): 079611315 ICD Code: C15.9 - MALIGNANT NEOPLASM OF ESOPHAGUS, UNSPECIFIED Status: Chronic Current Visit: No Qualifiers: Malignant neoplasm of esophagus location: unspecified location Qualified Code(s): C15.9 - Malignant neoplasm of esophagus, unspecified (5) History of Miguel fundoplication SNOMED Code(s): 947038804 ICD Code: Z98.890 - OTHER SPECIFIED POSTPROCEDURAL STATES Status: Chronic Priority: Medium Current Visit: No Problem List Initiated/Reviewed/Updated: Yes Orders Last 24hrs: Active Orders 24 hr Category Date Time Status Sodium Chloride 0.9% [Saline Flush] Med 08/07/18 12:36 Active 10 ml FLUSH ASDIRECTED PRN Sodium Chloride 0.9% [Saline Flush] Med 08/07/18 12:36 Active 2.5 ml FLUSH ASDIRECTED PRN Vancomycin [Vancocin] 1 gm Med 08/07/18 15:06 Active Sodium Chloride 0.9% [Normal Saline] 250 ml IV ONETIME cefTRIAXone [Rocephin in Dextrose,Iso-Osm 1 GM/50 ML] 1 Med 08/07/18 15:05 Active gm Premix Bag 1 bag IV ONETIME Saline Lock Insert [OM.PC] Stat Oth 08/07/18 12:35 Ordered Medication Orders Ceftriaxone Sodium/Dextrose 1 (gm/ Premix) 50 mls @ 100 mls/hr IV ONETIME ONE Stop: 08/07/18 15:34 Last Admin: 08/07/18 15:16 Dose: 100 mls/hr Vancomycin HCl 1 gm/ Sodium (Chloride) 250 mls @ 166 mls/hr IV ONETIME ONE Stop: 08/07/18 16:36 Sodium Chloride (Saline Flush) 10 ml FLUSH ASDIRECTED PRN PRN Reason: Keep Vein Open Sodium Chloride (Saline Flush) 2.5 ml FLUSH ASDIRECTED PRN PRN Reason: Keep Vein Open Assessment/Plan Comment:: This 62 year old male admitted with newly diagnosed brain metastases from esophageal cancer and suspected bacterial meningitis 1. New brain metastasis: Will follow Dr Overton's recommendation and continue Decadron 4 mg IV every [address] Randolph, radiation oncologist, will be notified by Dr Overton. Has current known mets to liver and bone. 2. Suspected meningitis: Unlikely, but Dr Overton recommended treatment with Rocephin and Vancomycin. Will treat and place on precautions. No LP due to contraindications. BC from yesterday reveal no growth x 1 day. 3. Nausea: Will start Zantac 150 mg BID. Zofran PRN. IVFs NS 125 overnight due to poor appetite/intake. 4. Insomnia: Will trial Restoril tonight and monitor effectiveness. VTE prophylaxis: Heparin Q12 hr Dispo: 1-2 days pending improvement. Patient requests FULL CODE at this time. <Rigoberto Vincent M - Last Filed: 08/08/18 07:50> H&P History of Present Illness - General Admit Problem/Dx: Admission Diagnosis/Problem Admission Diagnosis/Problem Weakness I have seen and examined the patient independently of Rosa Dias CNP. I have discussed the case with the her. I agree with the assessment and plan of care as outlined for this patient. Please see orders. Exam - Vital Signs Vital Signs: Last Vital Signs Temp 36.9 C 08/08/18 04:47 Pulse 65 08/08/18 04:47 Resp 18 08/08/18 04:47 BP 166/75 H 08/08/18 04:49 Pulse Ox 94 L 08/08/18 04:47 - Patient Data Lab Results Last 24 hrs: Laboratory Results - last 24 hr 08/07/18 08/07/18 08/08/18 Range/Units 13:00 13:00 04:50 WBC 6.94 6.62 (4.0-11.0) K/uL RBC 5.01 4.78 (4.50-5.90) M/uL Hgb 14.7 14.0 (13.0-17.0) g/dL Hct 42.0 39.8 (38.0-50.0) % MCV 83.8 83.3 (80.0-98.0) fL MCH 29.3 29.3 (27.0-32.0) pg MCHC 35.0 35.2 (31.0-37.0) g/dL RDW Std Deviation 45.7 44.5 (28.0-62.0) fl RDW Coeff of Robb 15 15 (11.0-15.0) % Plt Count 142 L 131 L (150-400) K/uL MPV 10.80 10.10 (7.40-12.00) fL Neut % (Auto) 85.2 H 83.3 H (48.0-80.0) % Lymph % (Auto) 7.5 L 10.0 L (16.0-40.0) % Charlton % (Auto) 7.2 6.5 (0.0-15.0) % Eos % (Auto) 0.0 0.0 (0.0-7.0) % Baso % (Auto) 0.1 0.2 (0.0-1.5) % Neut # (Auto) 5.9 H 5.5 (1.4-5.7) K/uL Lymph # (Auto) 0.5 L 0.7 (0.6-2.4) K/uL Charlton # (Auto) 0.5 0.4 (0.0-0.8) K/uL Eos # (Auto) 0.0 0.0 (0.0-0.7) K/uL Baso # (Auto) 0.0 0.0 (0.0-0.1) K/uL Nucleated RBC % 0.0 0.0 /100WBC Nucleated RBCs # 0 0 K/uL Sodium 139 (136-148) mmol/L Potassium 3.8 (3.5-5.1) mmol/L Chloride 102 (98-107) mmol/L Carbon Dioxide 23.7 (21.0-32.0) mmol/L BUN 19 H (7.0-18.0) mg/dL Creatinine 0.9 (0.8-1.3) mg/dL Est Cr Clr Drug Dosing 92.96 mL/min Estimated GFR (MDRD) > 60.0 ml/min Glucose 146 H (74-106) mg/dL Calcium 9.8 (8.5-10.1) mg/dL Total Bilirubin 1.0 (0.2-1.0) mg/dL AST 78 H (15-37) IU/L ALT 30 (14-63) IU/L Alkaline Phosphatase 167 H (46-116) U/L Total Protein 7.5 (6.4-8.2) g/dL Albumin 3.6 (3.4-5.0) g/dL Globulin 3.9 (2.6-4.0) g/dL Albumin/Globulin Ratio 0.9 (0.9-1.6) 08/08/18 Range/Units 04:50 WBC (4.0-11.0) K/uL RBC (4.50-5.90) M/uL Hgb (13.0-17.0) g/dL Hct (38.0-50.0) % MCV (80.0-98.0) fL MCH (27.0-32.0) pg MCHC (31.0-37.0) g/dL RDW Std Deviation (28.0-62.0) fl RDW Coeff of Robb (11.0-15.0) % Plt Count (150-400) K/uL MPV (7.40-12.00) fL Neut % (Auto) (48.0-80.0) % Lymph % (Auto) (16.0-40.0) % Charlton % (Auto) (0.0-15.0) % Eos % (Auto) (0.0-7.0) % Baso % (Auto) (0.0-1.5) % Neut # (Auto) (1.4-5.7) K/uL Lymph # (Auto) (0.6-2.4) K/uL Charlton # (Auto) (0.0-0.8) K/uL Eos # (Auto) (0.0-0.7) K/uL Baso # (Auto) (0.0-0.1) K/uL Nucleated RBC % /100WBC Nucleated RBCs # K/uL Sodium 140 (136-148) mmol/L Potassium 4.0 (3.5-5.1) mmol/L Chloride 105 (98-107) mmol/L Carbon Dioxide 24.7 (21.0-32.0) mmol/L BUN 18 (7.0-18.0) mg/dL Creatinine 0.9 (0.8-1.3) mg/dL Est Cr Clr Drug Dosing 92.96 mL/min Estimated GFR (MDRD) > 60.0 ml/min Glucose 135 H (74-106) mg/dL Calcium 9.2 (8.5-10.1) mg/dL Total Bilirubin (0.2-1.0) mg/dL AST (15-37) IU/L ALT (14-63) IU/L Alkaline Phosphatase (46-116) U/L Total Protein (6.4-8.2) g/dL Albumin (3.4-5.0) g/dL Globulin (2.6-4.0) g/dL Albumin/Globulin Ratio (0.9-1.6) Result Diagrams: 08/08/18 04:50 08/08/18 04:50 Orders Last 24hrs: Active Orders 24 hr Category Date Time Status Patient Status [ADT] Routine ADT 08/07/18 15:46 Active Intake and Output [RC] QSHIFT Care 08/07/18 15:47 Active May Shower [RC] ASDIRECTED Care 08/07/18 15:46 Active Oxygen Therapy [RC] PRN Care 08/07/18 15:46 Active Up With Assistance [RC] ASDIRECTED Care 08/07/18 15:46 Active Vital Signs [RC] Q4H Care 08/07/18 15:46 Active Regular Diet [DIET] Diet 08/07/18 Dinner Active VANCOMYCIN TROUGH [CHEM] Routine Lab 08/08/18 16:00 Ordered Acetaminophen [Tylenol] Med 08/07/18 15:46 Active 650 mg PO Q4H PRN Dexamethasone Med 08/07/18 21:00 Active 4 mg IVPUSH Q6H Heparin Sodium Med 08/07/18 16:00 Active 5,000 units SUBCUT Q12H Ondansetron [Zofran] Med 08/07/18 15:46 Active 4 mg IVPUSH Q4H PRN Pharmacy to Dose - Vancomycin Med 08/07/18 16:00 Active 1 dose .XX ASDIRECTED Ranitidine [Zantac] Med 08/07/18 21:00 Active 150 mg PO BID Sodium Chloride 0.9% [Normal Saline] 1,000 ml Med 08/07/18 16:00 Active IV ASDIRECTED Sodium Chloride 0.9% [Saline Flush] Med 08/07/18 12:36 Active 10 ml FLUSH ASDIRECTED PRN Sodium Chloride 0.9% [Saline Flush] Med 08/07/18 12:36 Active 2.5 ml FLUSH ASDIRECTED PRN Temazepam [Restoril] Med 08/07/18 16:00 Active 15 mg PO BEDTIME PRN Vancomycin 1 gm Med 08/07/18 17:00 Active Vancomycin 500 mg Sodium Chloride 0.9% [Normal Saline] 500 ml IV Q8H cefTRIAXone [Rocephin in Dextrose,Iso-Osm 2 GM/50 ML] 2 Med 08/08/18 03:00 Active gm Premix Bag 1 bag IV Q12H hydrOXYzine HCl [Atarax] Med 08/07/18 16:03 Active 10 mg PO Q8H PRN oxyCODONE Med 08/07/18 16:28 Active 5 mg PO Q4H PRN Saline Lock Insert [OM.PC] Stat Oth 08/07/18 12:35 Ordered Resuscitation Status Routine Resus Stat 08/07/18 15:46 Ordered Medication Orders Acetaminophen (Tylenol) 650 mg PO Q4H PRN PRN Reason: Pain (mild 1-3) Last Admin: 08/08/18 04:56 Dose: 650 mg Dexamethasone (Dexamethasone) 4 mg IVPUSH Q6H [facility] Last Admin: 08/08/18 04:52 Dose: 4 mg Admin: 08/07/18 20:30 Dose: 4 mg Heparin Sodium (Porcine) (Heparin Sodium) 5,000 units SUBCUT Q12H [facility] Last Admin: 08/08/18 04:52 Dose: 5,000 units Admin: 08/07/18 16:44 Dose: 5,000 units Hydroxyzine HCl (Atarax) 10 mg PO Q8H PRN PRN Reason: Anxiety Ceftriaxone Sodium/Dextrose 2 (gm/ Premix) 50 mls @ 100 mls/hr IV Q12H [facility] Last Admin: 08/08/18 04:51 Dose: 100 mls/hr Sodium Chloride (Normal Saline) 1,000 mls @ 125 mls/hr IV ASDIRECTED [facility] Last Admin: 08/08/18 04:50 Dose: 125 mls/hr Infusion: 08/08/18 00:44 Dose: 125 mls/hr Admin: 08/07/18 16:44 Dose: 125 mls/hr Vancomycin HCl 1 gm/Vancomycin HCl 500 mg/ Sodium Chloride 500 mls @ 250 mls/ hr IV Q8H [facility] Last Admin: 08/07/18 23:59 Dose: 250 mls/hr Infusion: 08/07/18 19:39 Dose: 250 mls/hr Admin: 08/07/18 17:39 Dose: 250 mls/hr Ondansetron HCl (Zofran) 4 mg IVPUSH Q4H PRN PRN Reason: Nausea Oxycodone HCl (Oxycodone) 5 mg PO Q4H PRN PRN Reason: Pain Ranitidine HCl (Zantac) 150 mg PO BID [facility] Last Admin: 08/07/18 20:30 Dose: 150 mg Sodium Chloride (Saline Flush) 10 ml FLUSH ASDIRECTED PRN PRN Reason: Keep Vein Open Sodium Chloride (Saline Flush) 2.5 ml FLUSH ASDIRECTED PRN PRN Reason: Keep Vein Open Temazepam (Restoril) 15 mg PO BEDTIME PRN PRN Reason: Insomnia Last Admin: 08/07/18 21:14 Dose: 15 mg Vancomycin HCl (Pharmacy To Dose - Vancomycin) 1 dose .XX ASDIRECTED [facility]
[2018-08-07] MEDS ORDERED: Ondansetron 4 MG/2 ML SDV IVPUSH PRN (15:46)
[2018-08-07] MEDS ORDERED: hydrOXYzine HCl 25 MG Tab PO PRN (16:03)
[2018-08-07] MEDS ORDERED: oxyCODONE 5 MG Tab PO PRN (16:28)
[2018-08-07] MEDS: Heparin Sodium 5,000 Units/ML Vial SUBCUT SCH (16:44)
[2018-08-07] MEDS: Sodium Chloride 0.9% 1,000 ML IV SCH (16:44)
[2018-08-07] MEDS: Vancomycin 1 GM, Vancomycin 500 MG in Sodium Chloride 0.9% 500 ML IV SCH ×2 (17:39→23:59)
[2018-08-07] MEDS: Ranitidine 15 MG/ML Syrup 10 ML UD Cup PO SCH (20:30)
[2018-08-07] MEDS: Dexamethasone 10 MG/ML SDV IVPUSH SCH (20:30)
[2018-08-07] MEDS: Temazepam 15 MG Cap PO PRN (21:14)
[2018-08-08] MEDS ORDERED: cefTRIAXone 2 GM in Premix Bag 1 BAG IV SCH (03:00)
[2018-08-08] MEDS: Sodium Chloride 0.9% 1,000 ML IV SCH ×2 (04:50→16:37)
[2018-08-08] MEDS: Dexamethasone 10 MG/ML SDV IVPUSH SCH ×4 (04:52→21:20)
[2018-08-08] MEDS: Heparin Sodium 5,000 Units/ML Vial SUBCUT SCH ×2 (04:52→16:45)
[2018-08-08] MEDS: Acetaminophen 325 MG Tab PO PRN ×2 (04:56→17:04)
[2018-08-08 05:14] LABS: CHLORIDE,CL 105 mmol/L (98-107); SODIUM,NA 140 mmol/L (136-148)
[2018-08-08] MEDS: Ranitidine 15 MG/ML Syrup 10 ML UD Cup PO SCH ×2 (09:07→21:19)
[2018-08-08] MEDS: Vancomycin 1 GM, Vancomycin 500 MG in Sodium Chloride 0.9% 500 ML IV SCH (09:13)
--- NOTE | 2018-08-08 09:52 | PCM.PN ---
<Rosa Dias M - Last Filed: 08/08/18 10:31> - General Info Date of Service: 08/08/18 Admission Dx/Problem (Free Text): Admission Diagnosis/Problem Admission Diagnosis/Problem Weakness Subjective Update: Feeling a little improved today. NO chest pain no abdominal pain. Headache intermittently elevates to a 5/10. Continues to feel like his equilibrium is off. sitting up now, where as before he couldn't do that. But has not been able to ambulate without significant gait instability due to his balance being off. Functional Status: Reports: Pain Controlled, Urinating. Denies: Tolerating Diet (appetite poor, tolerating liquids only), Ambulating - Review of Systems General: Reports: Malaise (improving). Denies: Fever, Appetite HEENT: Reports: Headaches (posterior). Denies: Sore Throat Pulmonary: Reports: No Symptoms. Denies: Shortness of Breath Cardiovascular: Reports: No Symptoms. Denies: Chest Pain Gastrointestinal: Reports: Decreased Appetite. Denies: Abdominal Pain, Nausea, Vomiting Genitourinary: Reports: No Symptoms. Denies: Dysuria, Frequency, Burning Musculoskeletal: Reports: No Symptoms. Denies: Neck Pain, Shoulder Pain Skin: Reports: No Symptoms Neurological: Reports: Headache, Difficulty Walking (balance off still, but feels like it is improving) Psychiatric: Reports: No Symptoms - Patient Data Vitals - Most Recent: Last Vital Signs Temp 97.7 F 08/08/18 08:00 Pulse 76 08/08/18 08:00 Resp 18 08/08/18 08:00 BP 152/84 H 08/08/18 08:00 Pulse Ox 93 L 08/08/18 08:00 Weight - Most Recent: 97.522 kg I&O - Last 24 Hours: Intake & Output 08/07/18 08/08/18 08/08/18 22:59 06:59 14:59 Intake Total 500 2800 500 Output Total 1800 Balance 500 1000 500 Lab Results Last 24 Hours: Laboratory Results - last 24 hr 08/07/18 08/07/18 08/08/18 Range/Units 13:00 13:00 04:50 WBC 6.94 6.62 (4.0-11.0) K/uL RBC 5.01 4.78 (4.50-5.90) M/uL Hgb 14.7 14.0 (13.0-17.0) g/dL Hct 42.0 39.8 (38.0-50.0) % MCV 83.8 83.3 (80.0-98.0) fL MCH 29.3 29.3 (27.0-32.0) pg MCHC 35.0 35.2 (31.0-37.0) g/dL RDW Std Deviation 45.7 44.5 (28.0-62.0) fl RDW Coeff of Robb 15 15 (11.0-15.0) % Plt Count 142 L 131 L (150-400) K/uL MPV 10.80 10.10 (7.40-12.00) fL Neut % (Auto) 85.2 H 83.3 H (48.0-80.0) % Lymph % (Auto) 7.5 L 10.0 L (16.0-40.0) % [place] % (Auto) 7.2 6.5 (0.0-15.0) % Eos % (Auto) 0.0 0.0 (0.0-7.0) % Baso % (Auto) 0.1 0.2 (0.0-1.5) % Neut # (Auto) 5.9 H 5.5 (1.4-5.7) K/uL Lymph # (Auto) 0.5 L 0.7 (0.6-2.4) K/uL [place] # (Auto) 0.5 0.4 (0.0-0.8) K/uL Eos # (Auto) 0.0 0.0 (0.0-0.7) K/uL Baso # (Auto) 0.0 0.0 (0.0-0.1) K/uL Nucleated RBC % 0.0 0.0 /100WBC Nucleated RBCs # 0 0 K/uL Sodium 139 (136-148) mmol/L Potassium 3.8 (3.5-5.1) mmol/L Chloride 102 (98-107) mmol/L Carbon Dioxide 23.7 (21.0-32.0) mmol/L BUN 19 H (7.0-18.0) mg/dL Creatinine 0.9 (0.8-1.3) mg/dL Est Cr Clr Drug Dosing 92.96 mL/min Estimated GFR (MDRD) > 60.0 ml/min Glucose 146 H (74-106) mg/dL Calcium 9.8 (8.5-10.1) mg/dL Total Bilirubin 1.0 (0.2-1.0) mg/dL AST 78 H (15-37) IU/L ALT 30 (14-63) IU/L Alkaline Phosphatase 167 H (46-116) U/L Total Protein 7.5 (6.4-8.2) g/dL Albumin 3.6 (3.4-5.0) g/dL Globulin 3.9 (2.6-4.0) g/dL Albumin/Globulin Ratio 0.9 (0.9-1.6) 08/08/18 Range/Units 04:50 WBC (4.0-11.0) K/uL RBC (4.50-5.90) M/uL Hgb (13.0-17.0) g/dL Hct (38.0-50.0) % MCV (80.0-98.0) fL MCH (27.0-32.0) pg MCHC (31.0-37.0) g/dL RDW Std Deviation (28.0-62.0) fl RDW Coeff of Robb (11.0-15.0) % Plt Count (150-400) K/uL MPV (7.40-12.00) fL Neut % (Auto) (48.0-80.0) % Lymph % (Auto) (16.0-40.0) % [place] % (Auto) (0.0-15.0) % Eos % (Auto) (0.0-7.0) % Baso % (Auto) (0.0-1.5) % Neut # (Auto) (1.4-5.7) K/uL Lymph # (Auto) (0.6-2.4) K/uL [place] # (Auto) (0.0-0.8) K/uL Eos # (Auto) (0.0-0.7) K/uL Baso # (Auto) (0.0-0.1) K/uL Nucleated RBC % /100WBC Nucleated RBCs # K/uL Sodium 140 (136-148) mmol/L Potassium 4.0 (3.5-5.1) mmol/L Chloride 105 (98-107) mmol/L Carbon Dioxide 24.7 (21.0-32.0) mmol/L BUN 18 (7.0-18.0) mg/dL Creatinine 0.9 (0.8-1.3) mg/dL Est Cr Clr Drug Dosing 92.96 mL/min Estimated GFR (MDRD) > 60.0 ml/min Glucose 135 H (74-106) mg/dL Calcium 9.2 (8.5-10.1) mg/dL Total Bilirubin (0.2-1.0) mg/dL AST (15-37) IU/L ALT (14-63) IU/L Alkaline Phosphatase (46-116) U/L Total Protein (6.4-8.2) g/dL Albumin (3.4-5.0) g/dL Globulin (2.6-4.0) g/dL Albumin/Globulin Ratio (0.9-1.6) Med Orders - Current: Current Medications Acetaminophen (Tylenol) 650 mg PO Q4H PRN PRN Reason: Pain (mild 1-3) Last Admin: 08/08/18 04:56 Dose: 650 mg Dexamethasone (Dexamethasone) 4 mg IVPUSH Q6H [facility] Last Admin: 08/08/18 09:08 Dose: 4 mg Heparin Sodium (Porcine) (Heparin Sodium) 5,000 units SUBCUT Q12H [facility] Last Admin: 08/08/18 04:52 Dose: 5,000 units Hydroxyzine HCl (Atarax) 10 mg PO Q8H PRN PRN Reason: Anxiety Sodium Chloride (Normal Saline) 1,000 mls @ 125 mls/hr IV ASDIRECTED [facility] Last Admin: 08/08/18 04:50 Dose: 125 mls/hr Ondansetron HCl (Zofran) 4 mg IVPUSH Q4H PRN PRN Reason: Nausea Oxycodone HCl (Oxycodone) 5 mg PO Q4H PRN PRN Reason: Pain Ranitidine HCl (Zantac) 150 mg PO BID [facility] Last Admin: 08/08/18 09:07 Dose: 150 mg Sodium Chloride (Saline Flush) 10 ml FLUSH ASDIRECTED PRN PRN Reason: Keep Vein Open Sodium Chloride (Saline Flush) 2.5 ml FLUSH ASDIRECTED PRN PRN Reason: Keep Vein Open Temazepam (Restoril) 15 mg PO BEDTIME PRN PRN Reason: Insomnia Last Admin: 08/07/18 21:14 Dose: 15 mg Vancomycin HCl (Pharmacy To Dose - Vancomycin) 1 dose .XX ASDIRECTED JOSE D Discontinued Medications Dexamethasone (Dexamethasone) Confirm Administered Dose 10 mg .ROUTE .STK-MED ONE Stop: 08/07/18 14:58 Last Admin: 08/07/18 15:04 Dose: Not Given Dexamethasone Sodium Phosphate (Dexamethasone Sodium Phosphate) 10 mg IVPUSH ONETIME ONE Stop: 08/07/18 15:06 Last Admin: 08/07/18 15:13 Dose: 10 mg Gadobenate Dimeglumine (Multihance) 20 ml IVPUSH ONETIME STA Stop: 08/07/18 13:24 Last Admin: 08/07/18 13:24 Dose: 19 ml Sodium Chloride (Normal Saline) 1,000 mls @ 999 mls/hr IV .Bolus ONE Stop: 08/07/18 13:36 Last Admin: 08/07/18 13:01 Dose: 999 mls/hr Ceftriaxone Sodium/Dextrose (Rocephin In Dextrose,Iso-Osm 1 Gm/50 Ml) Confirm Administered Dose 50 mls @ as directed .ROUTE .STK-MED ONE Stop: 08/07/18 14:59 Last Admin: 08/07/18 15:03 Dose: Not Given Sodium Chloride (Normal Saline) Confirm Administered Dose 250 mls @ as directed .ROUTE .STK-MED ONE Stop: 08/07/18 15:02 Last Admin: 08/07/18 15:03 Dose: Not Given Ceftriaxone Sodium/Dextrose 1 (gm/ Premix) 50 mls @ 100 mls/hr IV ONETIME ONE Stop: 08/07/18 15:34 Last Admin: 08/07/18 15:16 Dose: 100 mls/hr Vancomycin HCl 1 gm/ Sodium (Chloride) 250 mls @ 166 mls/hr IV ONETIME ONE Stop: 08/07/18 16:36 Last Admin: 08/07/18 19:16 Dose: Not Given Ceftriaxone Sodium 1 gm/ (Premix) 50 mls @ 100 mls/hr IV ONETIME ONE Stop: 08/07/18 16:21 Last Admin: 08/07/18 16:44 Dose: 100 mls/hr Ceftriaxone Sodium/Dextrose 2 (gm/ Premix) 50 mls @ 100 mls/hr IV Q12H [facility] Last Admin: 08/08/18 04:51 Dose: 100 mls/hr Vancomycin HCl 1 gm/Vancomycin HCl 500 mg/ Sodium Chloride 500 mls @ 250 mls/ hr IV Q8H [facility] Last Admin: 08/08/18 09:13 Dose: 250 mls/hr Ondansetron HCl (Zofran) 4 mg IVPUSH ONETIME ONE Stop: 08/07/18 12:37 Last Admin: 08/07/18 13:01 Dose: 4 mg Vancomycin HCl (Vancocin) Confirm Administered Dose 1 gm .ROUTE .STK-MED ONE Stop: 08/07/18 14:58 Last Admin: 08/07/18 15:03 Dose: Not Given Vancomycin HCl (Vancocin) Confirm Administered Dose 1 gm .ROUTE .STK-MED ONE Stop: 08/07/18 15:00 Last Admin: 08/07/18 15:03 Dose: Not Given - Exam Quality Assessment: DVT Prophylaxis. No: Supplemental Oxygen General: Alert, Oriented, Cooperative, No Acute Distress HEENT: Pupils Equal, Pupils Reactive Neck: Supple, Other (no nuchal rigidity) Lungs: Clear to Auscultation, Normal Respiratory Effort Cardiovascular: Regular Rate, Regular Rhythm GI/Abdominal Exam: Normal Bowel Sounds, Soft, Non-Tender, No Mass Extremities: Normal Inspection, Normal Range of Motion, Non-Tender, No Pedal Edema, Normal Capillary Refill Wound/Incisions: Healing Well Neurological: No New Focal Deficit, Normal Speech, Strength Equal Bilateral, Other (feeling improving, able to sit up and is more interactive. Family reports this is much improved. Still feels uncoordinated with ambulation, so he hasn't walked much.) Psy/Mental Status: Alert, Normal Affect, Normal Mood - Problem List & Annotations (1) Brain metastasis Status: Acute Current Visit: Yes (2) Generalized weakness SNOMED Code(s): 29769056 Code(s): R53.1 - WEAKNESS Status: Acute Current Visit: Yes (3) Esophageal cancer SNOMED Code(s): 469697873 Code(s): C15.9 - MALIGNANT NEOPLASM OF ESOPHAGUS, UNSPECIFIED Status: Chronic Current Visit: No Qualifiers: Malignant neoplasm of esophagus location: unspecified location Qualified Code(s): C15.9 - Malignant neoplasm of esophagus, unspecified (4) History of Miguel fundoplication SNOMED Code(s): 265401858 Code(s): Z98.890 - OTHER SPECIFIED POSTPROCEDURAL STATES Status: Chronic Priority: Medium Current Visit: No - Problem List Review Problem List Initiated/Reviewed/Updated: Yes - My Orders Last 24 Hours: My Active Orders 08/07/18 15:46 Patient Status [ADT] Routine May Shower [RC] ASDIRECTED Oxygen Therapy [RC] PRN Up With Assistance [RC] ASDIRECTED Vital Signs [RC] Q4H Acetaminophen [Tylenol] 650 mg PO Q4H PRN Ondansetron [Zofran] 4 mg IVPUSH Q4H PRN Resuscitation Status Routine 08/07/18 15:47 Intake and Output [RC] QSHIFT 08/07/18 16:00 Heparin Sodium 5,000 units SUBCUT Q12H Pharmacy to Dose - Vancomycin 1 dose .XX ASDIRECTED Sodium Chloride 0.9% [Normal Saline] 1,000 ml IV ASDIRECTED Temazepam [Restoril] 15 mg PO BEDTIME PRN 08/07/18 16:03 hydrOXYzine HCl [Atarax] 10 mg PO Q8H PRN 08/07/18 16:28 oxyCODONE 5 mg PO Q4H PRN 08/07/18 21:00 Dexamethasone 4 mg IVPUSH Q6H Ranitidine [Zantac] 150 mg PO BID 08/07/18 Dinner Regular Diet [DIET] - Plan Plan:: This 62 year old male admitted with newly diagnosed brain metastases from esophageal cancer 1. New brain metastasis: Some improvement with symptoms, but not to the extent Dr Encinas was hoping. I spoke with Dr encinas and updated him on progress. He would like to continue IV steroids today and monitor symptoms. Recommended to stop antibiotics as it is unlikely meningitis, likely from brain mets. Continue Decadron 4 mg IV every [address] Randolph, radiation oncologist will visit with patient and family today regarding Radiation. Add PPI due to steroids and should be sent home on these along with oral steroids. 2. Nausea: Improved. Continue Zantac 150 mg BID. Zofran PRN. IVFs NS 125 4. Insomnia: Restoril helped with sleep last night. VTE prophylaxis: Heparin Q12 hr Dispo: possible home in am. Patient requests FULL CODE at this time. <Rigoberto Vincent M - Last Filed: 08/08/18 12:35> - General Info Admission Dx/Problem (Free Text): I have examined the patient independently of Rosa Dias CNP. I have discussed the case with her. I agree with the assessment and plan of care as outlined for this patient by her. Please see orders. The patient will be sent home likely tomorrow on oral steroids for brain metastases and edema. - Patient Data Vitals - Most Recent: Last Vital Signs Temp 36.5 C 08/08/18 08:00 Pulse 76 08/08/18 08:00 Resp 18 08/08/18 08:00 BP 152/84 H 08/08/18 08:00 Pulse Ox 93 L 08/08/18 08:00 I&O - Last 24 Hours: Intake & Output 08/07/18 08/08/18 08/08/18 22:59 06:59 14:59 Intake Total 500 2800 500 Output Total 1800 Balance 500 1000 500 Lab Results Last 24 Hours: Laboratory Results - last 24 hr 08/07/18 08/07/18 08/08/18 Range/Units 13:00 13:00 04:50 WBC 6.94 6.62 (4.0-11.0) K/uL RBC 5.01 4.78 (4.50-5.90) M/uL Hgb 14.7 14.0 (13.0-17.0) g/dL Hct 42.0 39.8 (38.0-50.0) % MCV 83.8 83.3 (80.0-98.0) fL MCH 29.3 29.3 (27.0-32.0) pg MCHC 35.0 35.2 (31.0-37.0) g/dL RDW Std Deviation 45.7 44.5 (28.0-62.0) fl RDW Coeff of Robb 15 15 (11.0-15.0) % Plt Count 142 L 131 L (150-400) K/uL MPV 10.80 10.10 (7.40-12.00) fL Neut % (Auto) 85.2 H 83.3 H (48.0-80.0) % Lymph % (Auto) 7.5 L 10.0 L (16.0-40.0) % [place] % (Auto) 7.2 6.5 (0.0-15.0) % Eos % (Auto) 0.0 0.0 (0.0-7.0) % Baso % (Auto) 0.1 0.2 (0.0-1.5) % Neut # (Auto) 5.9 H 5.5 (1.4-5.7) K/uL Lymph # (Auto) 0.5 L 0.7 (0.6-2.4) K/uL [place] # (Auto) 0.5 0.4 (0.0-0.8) K/uL Eos # (Auto) 0.0 0.0 (0.0-0.7) K/uL Baso # (Auto) 0.0 0.0 (0.0-0.1) K/uL Nucleated RBC % 0.0 0.0 /100WBC Nucleated RBCs # 0 0 K/uL Sodium 139 (136-148) mmol/L Potassium 3.8 (3.5-5.1) mmol/L Chloride 102 (98-107) mmol/L Carbon Dioxide 23.7 (21.0-32.0) mmol/L BUN 19 H (7.0-18.0) mg/dL Creatinine 0.9 (0.8-1.3) mg/dL Est Cr Clr Drug Dosing 92.96 mL/min Estimated GFR (MDRD) > 60.0 ml/min Glucose 146 H (74-106) mg/dL Calcium 9.8 (8.5-10.1) mg/dL Total Bilirubin 1.0 (0.2-1.0) mg/dL AST 78 H (15-37) IU/L ALT 30 (14-63) IU/L Alkaline Phosphatase 167 H (46-116) U/L Total Protein 7.5 (6.4-8.2) g/dL Albumin 3.6 (3.4-5.0) g/dL Globulin 3.9 (2.6-4.0) g/dL Albumin/Globulin Ratio 0.9 (0.9-1.6) 08/08/18 Range/Units 04:50 WBC (4.0-11.0) K/uL RBC (4.50-5.90) M/uL Hgb (13.0-17.0) g/dL Hct (38.0-50.0) % MCV (80.0-98.0) fL MCH (27.0-32.0) pg MCHC (31.0-37.0) g/dL RDW Std Deviation (28.0-62.0) fl RDW Coeff of Robb (11.0-15.0) % Plt Count (150-400) K/uL MPV (7.40-12.00) fL Neut % (Auto) (48.0-80.0) % Lymph % (Auto) (16.0-40.0) % [place] % (Auto) (0.0-15.0) % Eos % (Auto) (0.0-7.0) % Baso % (Auto) (0.0-1.5) % Neut # (Auto) (1.4-5.7) K/uL Lymph # (Auto) (0.6-2.4) K/uL [place] # (Auto) (0.0-0.8) K/uL Eos # (Auto) (0.0-0.7) K/uL Baso # (Auto) (0.0-0.1) K/uL Nucleated RBC % /100WBC Nucleated RBCs # K/uL Sodium 140 (136-148) mmol/L Potassium 4.0 (3.5-5.1) mmol/L Chloride 105 (98-107) mmol/L Carbon Dioxide 24.7 (21.0-32.0) mmol/L BUN 18 (7.0-18.0) mg/dL Creatinine 0.9 (0.8-1.3) mg/dL Est Cr Clr Drug Dosing 92.96 mL/min Estimated GFR (MDRD) > 60.0 ml/min Glucose 135 H (74-106) mg/dL Calcium 9.2 (8.5-10.1) mg/dL Total Bilirubin (0.2-1.0) mg/dL AST (15-37) IU/L ALT (14-63) IU/L Alkaline Phosphatase (46-116) U/L Total Protein (6.4-8.2) g/dL Albumin (3.4-5.0) g/dL Globulin (2.6-4.0) g/dL Albumin/Globulin Ratio (0.9-1.6) Med Orders - Current: Current Medications Acetaminophen (Tylenol) 650 mg PO Q4H PRN PRN Reason: Pain (mild 1-3) Last Admin: 08/08/18 04:56 Dose: 650 mg Dexamethasone (Dexamethasone) 4 mg IVPUSH Q6H [facility] Last Admin: 08/08/18 09:08 Dose: 4 mg Heparin Sodium (Porcine) (Heparin Sodium) 5,000 units SUBCUT Q12H [facility] Last Admin: 08/08/18 04:52 Dose: 5,000 units Hydroxyzine HCl (Atarax) 10 mg PO Q8H PRN PRN Reason: Anxiety Sodium Chloride (Normal Saline) 1,000 mls @ 125 mls/hr IV ASDIRECTED [facility] Last Admin: 08/08/18 04:50 Dose: 125 mls/hr Ondansetron HCl (Zofran) 4 mg IVPUSH Q4H PRN PRN Reason: Nausea Oxycodone HCl (Oxycodone) 5 mg PO Q4H PRN PRN Reason: Pain Pantoprazole Sodium (Protonix Iv) 40 mg IVPUSH DAILY [facility] Last Admin: 08/08/18 10:49 Dose: 40 mg Ranitidine HCl (Zantac) 150 mg PO BID [facility] Last Admin: 08/08/18 09:07 Dose: 150 mg Sodium Chloride (Saline Flush) 10 ml FLUSH ASDIRECTED PRN PRN Reason: Keep Vein Open Sodium Chloride (Saline Flush) 2.5 ml FLUSH ASDIRECTED PRN PRN Reason: Keep Vein Open Temazepam (Restoril) 15 mg PO BEDTIME PRN PRN Reason: Insomnia Last Admin: 08/07/18 21:14 Dose: 15 mg Vancomycin HCl (Pharmacy To Dose - Vancomycin) 1 dose .XX ASDIRECTED [facility] Discontinued Medications Dexamethasone (Dexamethasone) Confirm Administered Dose 10 mg .ROUTE .STK-MED ONE Stop: 08/07/18 14:58 Last Admin: 08/07/18 15:04 Dose: Not Given Dexamethasone Sodium Phosphate (Dexamethasone Sodium Phosphate) 10 mg IVPUSH ONETIME ONE Stop: 08/07/18 15:06 Last Admin: 08/07/18 15:13 Dose: 10 mg Gadobenate Dimeglumine (Multihance) 20 ml IVPUSH ONETIME STA Stop: 08/07/18 13:24 Last Admin: 08/07/18 13:24 Dose: 19 ml Sodium Chloride (Normal Saline) 1,000 mls @ 999 mls/hr IV .Bolus ONE Stop: 08/07/18 13:36 Last Admin: 08/07/18 13:01 Dose: 999 mls/hr Ceftriaxone Sodium/Dextrose (Rocephin In Dextrose,Iso-Osm 1 Gm/50 Ml) Confirm Administered Dose 50 mls @ as directed .ROUTE .STK-MED ONE Stop: 08/07/18 14:59 Last Admin: 08/07/18 15:03 Dose: Not Given Sodium Chloride (Normal Saline) Confirm Administered Dose 250 mls @ as directed .ROUTE .STK-MED ONE Stop: 08/07/18 15:02 Last Admin: 08/07/18 15:03 Dose: Not Given Ceftriaxone Sodium/Dextrose 1 (gm/ Premix) 50 mls @ 100 mls/hr IV ONETIME ONE Stop: 08/07/18 15:34 Last Admin: 08/07/18 15:16 Dose: 100 mls/hr Vancomycin HCl 1 gm/ Sodium (Chloride) 250 mls @ 166 mls/hr IV ONETIME ONE Stop: 08/07/18 16:36 Last Admin: 08/07/18 19:16 Dose: Not Given Ceftriaxone Sodium 1 gm/ (Premix) 50 mls @ 100 mls/hr IV ONETIME ONE Stop: 08/07/18 16:21 Last Admin: 08/07/18 16:44 Dose: 100 mls/hr Ceftriaxone Sodium/Dextrose 2 (gm/ Premix) 50 mls @ 100 mls/hr IV Q12H [facility] Last Admin: 08/08/18 04:51 Dose: 100 mls/hr Vancomycin HCl 1 gm/Vancomycin HCl 500 mg/ Sodium Chloride 500 mls @ 250 mls/ hr IV Q8H [facility] Last Admin: 08/08/18 09:13 Dose: 250 mls/hr Ondansetron HCl (Zofran) 4 mg IVPUSH ONETIME ONE Stop: 08/07/18 12:37 Last Admin: 08/07/18 13:01 Dose: 4 mg Vancomycin HCl (Vancocin) Confirm Administered Dose 1 gm .ROUTE .STK-MED ONE Stop: 08/07/18 14:58 Last Admin: 08/07/18 15:03 Dose: Not Given Vancomycin HCl (Vancocin) Confirm Administered Dose 1 gm .ROUTE .[facility]-MED ONE Stop: 08/07/18 15:00 Last Admin: 08/07/18 15:03 Dose: Not Given
[2018-08-08] MEDS: Pantoprazole 40 MG Vial IVPUSH SCH (10:49)
[2018-08-08] MEDS: Temazepam 15 MG Cap PO PRN (21:19)
[2018-08-09] MEDS: Sodium Chloride 0.9% 1,000 ML IV SCH ×2 (00:56→08:59)
[2018-08-09] MEDS: Dexamethasone 10 MG/ML SDV IVPUSH SCH ×2 (03:48→09:06)
[2018-08-09] MEDS: Heparin Sodium 5,000 Units/ML Vial SUBCUT SCH (03:48)
[2018-08-09 06:35] LABS: CHLORIDE,CL 106 mmol/L (98-107); SODIUM,NA 142 mmol/L (136-148)
--- NOTE | 2018-08-09 08:53 | PCM.DCSUM1 ---
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 He reports dry heaves, posterior headache, and discoordination. He has felt like he is off balance. No visual concerns or blurred vision. No cough or fevers at home. No chest pain or SOB. No abdominal pain, urinary concerns or black or bloody BMs. Last chemotherapy treatment was 1 month ago, no history of radiation. In the ED labwork WNL, no leukocytosis or bandemia. MRI with and without contrast obtained and revealed multiple ring enhancing lesion within the cerebrum and cerebellum. Also leptomeningeal enhancement and edema within the cerebellum, may be secondary to the adjacent metastatic disease however underlying meningitis is also not excluded. Dr Overton recommended treatment with Decadron 10 mg IV initially followed by 4 mg every 6 hours, as well as Rocephin and Vancomycin for suspected meningitis, even thought suspicion is low due to no other clinical findings or symptoms. Blood cultures drawn yesterday, so far negative. Will not re-draw since no fevers have been noted. The patient had been with his oncologist and an MRI had revealed new metastases to the brain. Oncologist and recommended use of IV Decadron to help reduce cerebral edema. The patient initially had been In isolation out of concern for possible meningitis however this was quickly excluded. The patient had tolerated the IV steroids well. The patient's mentation had improved. He was treated with Zantac 150 mg by mouth twice a day as an H2 sarah given that he does have metastases in his cerebellum near the vermis. The patient is scheduled for the start of radiation therapy on August 11, 2018. The patient had met with radiation oncology. I had a long discussion with the patient and next of kin regarding hospice. The patient is not ready for hospice and would like to give radiation and further chemotherapy at the chance. I had offered this as a possible option later advised the patient that he and his family are the only ones that can determine if hospice is appropriate. The patient had been discharged on Decadron 8 mg twice a day for now. 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 The patient had been tolerating diet. His nausea was improved. The patient has been recommended to continue with his diet as tolerated. He is also to have activity as tolerated. The patient is hemodynamically stable and he has been discharged from acute hospitalization with the recommendations listed above. - Patient Instructions Diet: Regular Diet as Tolerated Activity: As Tolerated - Discharge Plan *PRESCRIPTION DRUG MONITORING PROGRAM REVIEWED*: No *COPY OF PRESCRIPTION DRUG MONITORING REPORT IN PATIENT FACUNDO: No Prescriptions/Med Rec: Dexamethasone 8 mg PO BID #120 tablet Ranitidine 150 mg PO BID #60 tab Temazepam [Restoril] 15 mg PO BEDTIME PRN #30 cap PRN Reason: Insomnia Home Medications: Home Meds LORazepam 1 tab PO ASDIRECTED PRN 07/25/17 [History] Ondansetron [Zofran] 8 mg PO ASDIRECTED PRN 07/25/17 [History] Prochlorperazine Maleate 10 mg PO ASDIRECTED PRN 07/25/17 [History] Dexamethasone 8 mg PO BID #120 tablet 08/09/18 [Rx] Ranitidine 150 mg PO BID #60 tab 08/09/18 [Rx] Temazepam [Restoril] 15 mg PO BEDTIME PRN #30 cap 08/09/18 [Rx] Oxygen Therapy Mode: Room Air Patient Handouts: Ranitidine tablets or capsules, Cerebral Edema, Adult, Temazepam tablets or capsules, Dexamethasone tablets Referrals: Killian Do MD [Primary Care Provider] - (Please call on Saturday and schedule a follow up appointment.) - Discharge Summary/Plan Comment DC Time >30 min.: Yes - General Info Date of Service: 08/10/18 Admission Dx/Problem (Free Text: Metastatic esophageal cancer with metastases to bone, liver, brain. Subjective Update: Doing better. Less nausea and vomiting. Patient has a scheduled follow-up with radiation oncology Functional Status: Reports: Pain Controlled, Tolerating Diet - Review of Systems General: Reports: No Symptoms HEENT: Reports: No Symptoms Pulmonary: Reports: No Symptoms Cardiovascular: Reports: No Symptoms Gastrointestinal: Reports: Nausea Genitourinary: Reports: No Symptoms Musculoskeletal: Reports: No Symptoms Skin: Reports: No Symptoms Neurological: Reports: No Symptoms Psychiatric: Reports: No Symptoms - Patient Data Vitals - Most Recent: Last Vital Signs Temp 36.6 C 08/09/18 04:00 Pulse 58 L 08/09/18 04:00 Resp 16 08/09/18 04:00 BP 144/76 H 08/09/18 04:00 Pulse Ox 93 L 08/09/18 04:00 Weight - Most Recent: 97.522 kg I&O - Last 24 hours: Intake & Output 08/08/18 08/09/18 08/09/18 22:59 06:59 14:59 Intake Total 2882 1775 Output Total 1475 1500 Balance 1407 275 Lab Results - Last 24 hrs: Laboratory Results - last 24 hr 08/09/18 08/09/18 Range/Units 06:08 06:08 WBC 8.45 (4.0-11.0) K/uL RBC 4.92 (4.50-5.90) M/uL Hgb 14.1 (13.0-17.0) g/dL Hct 41.6 (38.0-50.0) % MCV 84.6 (80.0-98.0) fL MCH 28.7 (27.0-32.0) pg MCHC 33.9 (31.0-37.0) g/dL RDW Std Deviation 45.6 (28.0-62.0) fl RDW Coeff of Robb 15 (11.0-15.0) % Plt Count 135 L (150-400) K/uL MPV 10.20 (7.40-12.00) fL Neut % (Auto) 84.3 H (48.0-80.0) % Lymph % (Auto) 8.5 L (16.0-40.0) % [place] % (Auto) 7.2 (0.0-15.0) % Eos % (Auto) 0.0 (0.0-7.0) % Baso % (Auto) 0.0 (0.0-1.5) % Neut # (Auto) 7.1 H (1.4-5.7) K/uL Lymph # (Auto) 0.7 (0.6-2.4) K/uL [place] # (Auto) 0.6 (0.0-0.8) K/uL Eos # (Auto) 0.0 (0.0-0.7) K/uL Baso # (Auto) 0.0 (0.0-0.1) K/uL Nucleated RBC % 0.0 /100WBC Nucleated RBCs # 0 K/uL Sodium 142 (136-148) mmol/L Potassium 4.2 (3.5-5.1) mmol/L Chloride 106 (98-107) mmol/L Carbon Dioxide 27.3 (21.0-32.0) mmol/L BUN 19 H (7.0-18.0) mg/dL Creatinine 1.0 (0.8-1.3) mg/dL Est Cr Clr Drug Dosing 83.67 mL/min Estimated GFR (MDRD) > 60.0 ml/min Glucose 131 H (74-106) mg/dL Calcium 9.3 (8.5-10.1) mg/dL Med Orders - Current: Current Medications Acetaminophen (Tylenol) 650 mg PO Q4H PRN PRN Reason: Pain (mild 1-3) Last Admin: 08/08/18 17:04 Dose: 650 mg Dexamethasone (Dexamethasone) 4 mg IVPUSH Q6H [facility] Last Admin: 08/09/18 03:48 Dose: 4 mg Heparin Sodium (Porcine) (Heparin Sodium) 5,000 units SUBCUT Q12H [facility] Last Admin: 08/09/18 03:48 Dose: 5,000 units Hydroxyzine HCl (Atarax) 10 mg PO Q8H PRN PRN Reason: Anxiety Sodium Chloride (Normal Saline) 1,000 mls @ 125 mls/hr IV ASDIRECTED [facility] Last Admin: 08/09/18 00:56 Dose: 125 mls/hr Ondansetron HCl (Zofran) 4 mg IVPUSH Q4H PRN PRN Reason: Nausea Oxycodone HCl (Oxycodone) 5 mg PO Q4H PRN PRN Reason: Pain Pantoprazole Sodium (Protonix Iv) 40 mg IVPUSH DAILY [facility] Last Admin: 08/08/18 10:49 Dose: 40 mg Ranitidine HCl (Zantac) 150 mg PO BID [facility] Last Admin: 08/08/18 21:19 Dose: 150 mg Sodium Chloride (Saline Flush) 10 ml FLUSH ASDIRECTED PRN PRN Reason: Keep Vein Open Sodium Chloride (Saline Flush) 2.5 ml FLUSH ASDIRECTED PRN PRN Reason: Keep Vein Open Temazepam (Restoril) 15 mg PO BEDTIME PRN PRN Reason: Insomnia Last Admin: 08/08/18 21:19 Dose: 15 mg Vancomycin HCl (Pharmacy To Dose - Vancomycin) 1 dose .XX ASDIRECTED JOSE D Discontinued Medications Dexamethasone (Dexamethasone) Confirm Administered Dose 10 mg .ROUTE .STK-MED ONE Stop: 08/07/18 14:58 Last Admin: 08/07/18 15:04 Dose: Not Given Dexamethasone Sodium Phosphate (Dexamethasone Sodium Phosphate) 10 mg IVPUSH ONETIME ONE Stop: 08/07/18 15:06 Last Admin: 08/07/18 15:13 Dose: 10 mg Gadobenate Dimeglumine (Multihance) 20 ml IVPUSH ONETIME STA Stop: 08/07/18 13:24 Last Admin: 08/07/18 13:24 Dose: 19 ml Sodium Chloride (Normal Saline) 1,000 mls @ 999 mls/hr IV .Bolus ONE Stop: 08/07/18 13:36 Last Admin: 08/07/18 13:01 Dose: 999 mls/hr Ceftriaxone Sodium/Dextrose (Rocephin In Dextrose,Iso-Osm 1 Gm/50 Ml) Confirm Administered Dose 50 mls @ as directed .ROUTE .STK-MED ONE Stop: 08/07/18 14:59 Last Admin: 08/07/18 15:03 Dose: Not Given Sodium Chloride (Normal Saline) Confirm Administered Dose 250 mls @ as directed .ROUTE .STK-MED ONE Stop: 08/07/18 15:02 Last Admin: 08/07/18 15:03 Dose: Not Given Ceftriaxone Sodium/Dextrose 1 (gm/ Premix) 50 mls @ 100 mls/hr IV ONETIME ONE Stop: 08/07/18 15:34 Last Admin: 08/07/18 15:16 Dose: 100 mls/hr Vancomycin HCl 1 gm/ Sodium (Chloride) 250 mls @ 166 mls/hr IV ONETIME ONE Stop: 08/07/18 16:36 Last Admin: 08/07/18 19:16 Dose: Not Given Ceftriaxone Sodium 1 gm/ (Premix) 50 mls @ 100 mls/hr IV ONETIME ONE Stop: 08/07/18 16:21 Last Admin: 08/07/18 16:44 Dose: 100 mls/hr Ceftriaxone Sodium/Dextrose 2 (gm/ Premix) 50 mls @ 100 mls/hr IV Q12H JOSE D Last Admin: 08/08/18 04:51 Dose: 100 mls/hr Vancomycin HCl 1 gm/Vancomycin HCl 500 mg/ Sodium Chloride 500 mls @ 250 mls/ hr IV Q8H [facility] Last Admin: 08/08/18 09:13 Dose: 250 mls/hr Ondansetron HCl (Zofran) 4 mg IVPUSH ONETIME ONE Stop: 08/07/18 12:37 Last Admin: 08/07/18 13:01 Dose: 4 mg Vancomycin HCl (Vancocin) Confirm Administered Dose 1 gm .ROUTE .STK-MED ONE Stop: 08/07/18 14:58 Last Admin: 08/07/18 15:03 Dose: Not Given Vancomycin HCl (Vancocin) Confirm Administered Dose 1 gm .ROUTE .STK-MED ONE Stop: 08/07/18 15:00 Last Admin: 08/07/18 15:03 Dose: Not Given - Exam Quality Assessment: Denies: Supplemental Oxygen General: Reports: Alert, Oriented, Cooperative HEENT: Reports: Pupils Equal, Pupils Reactive Neck: Reports: Supple, Trachea Midline Lungs: Reports: Clear to Auscultation, Normal Respiratory Effort Cardiovascular: Reports: Regular Rate, Regular Rhythm GI/Abdominal Exam: Normal Bowel Sounds, Soft, No Distention (Male) Exam: Deferred Rectal (Males) Exam: Deferred Back Exam: Reports: Normal Inspection, Full Range of Motion Extremities: Normal Inspection, No Pedal Edema Skin: Reports: Warm, Dry, Intact Neurological: Reports: No New Focal Deficit Psy/Mental Status: Reports: Alert, Normal Affect, Normal Mood
[2018-08-09] MEDS: Pantoprazole 40 MG Vial IVPUSH SCH (09:00)
[2018-08-09] MEDS: Ranitidine 15 MG/ML Syrup 10 ML UD Cup PO SCH (09:07)
== END 2018-08-09 11:40 | disposition home or self-care (01) ==
LOC: MW.ED 12:20 → MW.MS 15:34
PROVIDERS: ADMIT Internal Medicine; ATTEND Internal Medicine
DX: C79.31 Secondary malignant neoplasm of brain (principal); C15.9 Malignant neoplasm of esophagus, unspecified; C78.7 Secondary malignant neoplasm of liver and intrahepatic bile duct; C79.51 Secondary malignant neoplasm of bone; F41.9 Anxiety disorder, unspecified; G47.00 Insomnia, unspecified; E66.9 Obesity, unspecified; Z68.30 Body mass index [BMI] 30.0-30.9, adult; Z88.8 Allergy status to other drugs, medicaments and biological substances; Z79.899 Other long term (current) drug therapy; Z98.890 Other specified postprocedural states; Z92.21 Personal history of antineoplastic chemotherapy; Z87.891 Personal history of nicotine dependence
CPT/HCPCS: 36415; 70553; 80048; 80053; 85025; 96361; 96365; 96375; 99285; A9270; A9577; C9113; J0696; J1100; J1644; J2405; J3370; J7040; 96366; 96367; 96372; 96376; G0378

== ENCOUNTER 2018-08-14 13:16 | Emergency (ER) | payer BC ==
--- NOTE | 2018-08-14 13:18 | EDM.PDOC ---
ED HPI GENERAL MEDICAL PROBLEM - General Chief Complaint: General Stated Complaint: WEAKNESS Time Seen by Provider: 08/14/18 13:17 - Related Data Allergies Allergy/AdvReac Type Severity Reaction Status Date / Time pseudoephedrine Allergy Shaking Verified 08/07/18 12:24 [From Sudafed] Home Meds: Home Meds LORazepam 1 tab PO ASDIRECTED PRN 07/25/17 [History] Ondansetron [Zofran] 8 mg PO ASDIRECTED PRN 07/25/17 [History] Prochlorperazine Maleate 10 mg PO ASDIRECTED PRN 07/25/17 [History] Dexamethasone 8 mg PO BID #120 tablet 08/09/18 [Rx] Ranitidine 150 mg PO BID #60 tab 08/09/18 [Rx] Temazepam [Restoril] 15 mg PO BEDTIME PRN #30 cap 08/09/18 [Rx] Past Medical History HEENT History: Reports: None Other HEENT History: wears glasses, has top and bottom partial Cardiovascular History: Reports: None Respiratory History: Reports: None Gastrointestinal History: Reports: Bowel Obstruction (approximately 1 year ago.) Other Gastrointestinal History: recently in the hospital for small bowel obstruction Genitourinary History: Reports: None Musculoskeletal History: Reports: None, Arthritis Other Musculoskeletal History: hx fx ankle Neurological History: Reports: None Psychiatric History: Reports: Anxiety Endocrine/Metabolic History: Reports: Obesity/BMI 30+ Hematologic History: Reports: None Immunologic History: Reports: Immunosuppression Oncologic (Cancer) History: Reports: Esophageal Other Oncologic History: on chemotherapy, once every 3 weeks (pt with port for chemo) Dermatologic History: Reports: None - Infectious Disease History Infectious Disease History: Reports: None - Past Surgical History Head Surgeries/Procedures: Reports: None HEENT Surgical History: Reports: None Cardiovascular Surgical History: Reports: None Respiratory Surgical History: Reports: None GI Surgical History: Reports: Colonoscopy, EGD, Miguel Fundoplication Male Surgical History: Reports: None Endocrine Surgical History: Reports: None Neurological Surgical History: Reports: None Musculoskeletal Surgical History: Reports: None Oncologic Surgical History: Reports: None Dermatological Surgical History: Reports: None Social & Family History - Family History Family Medical History: Noncontributory - Caffeine Use Caffeine Use: Reports: None - Living Situation & Occupation Living situation: Reports: , with Spouse Occupation: Employed Departure - Discharge Information
[2018-08-14] MEDS ORDERED: HYDROmorphone 1 MG/ML Syringe IVPUSH ONE (13:45)
[2018-08-14] MEDS ORDERED: Ondansetron 4 MG/2 ML SDV IVPUSH ONE (13:45)
--- NOTE | 2018-08-14 14:01 | EDM.PDOC ---
ED HPI GENERAL MEDICAL PROBLEM - General Chief Complaint: General Stated Complaint: WEAKNESS Time Seen by Provider: 08/14/18 13:17 Source of Information: Reports: Family History Limitations: Reports: No Limitations - History of Present Illness INITIAL COMMENTS - FREE TEXT/NARRATIVE: HISTORY AND PHYSICAL: History of present illness: Patient is a 62-year-old male who presents to the emergency room today with his family with concerns of altered mental status. Family states that they are concerned that he is in pain because he appears uncomfortable and is not willing to communicate verbally. They stated that since this morning he has not wanted to get out of bed and the only thing he will say is "no". This is a change since previous days; stating he appears to be deteriorating. Family states he has not eaten since Saturday. Family and patient have expressed their wishes to do all life saving measures. Patient does have a history of esophageal cancer with metastases to the brain liver and bone. The metastasis diagnosis is fairly new. He is following oncology Dr. Overton/Dr. Randolph and has started radiation and immune therapy. He had radiation to the brain and immune therapy yesterday. Review of systems: As per history of present illness and below otherwise all systems reviewed and negative. Past medical history: As per history of present illness and as reviewed below otherwise noncontributory. Surgical history: As per history of present illness and as reviewed below otherwise noncontributory. Social history: See social history for further information Family history: As per history of present illness and as reviewed below otherwise noncontributory. Physical exam: General: Upon entrance into the room patient is lying on exam table and appears to be quite uncomfortable. He is writhing around and grunting. He is able to open his eyes in response to his name but does not appear to want to answer any questions. HEENT: Atraumatic, normocephalic, pupils equal and reactive bilaterally, negative for conjunctival pallor or scleral icterus, mucous membranes moist, throat clear, neck supple, nontender, trachea midline. No drooling or trismus noted. No meningeal signs. Lungs: Clear to auscultation, breath sounds equal bilaterally, chest nontender. Heart: S1S2, regular rate and rhythm without overt murmur Abdomen: Soft, nondistended, nontender. Negative for masses or hepatosplenomegaly. Negative for costovertebral tenderness. Exam of abdomen was limited due to pain. Pelvis: Stable nontender. Genitourinary: Deferred. Rectal: Deferred. Skin: Intact, warm, dry. No lesions or rashes noted. Extremities: Atraumatic, negative for cords or calf pain. Neurovascular unremarkable. Neuro: Awake. Cranial nerves II through XII and neuro exam unable to be assessed due to patient's uncooperation. Notes: Currently our facility is on diversion, we are at maximum capacity with no beds available. [facility] is currently on diversion. Dr. Overton, his oncologist, is aware of patient being in our emergency room and recommends that if transfer is needed to go to [place]. Family reports that would not want to be transferred to [place] for further care at this time anyway. Patient does have an elevated white blood cell count of 16.6 which is increased from 13.82 days ago. He also now has reported segs at 13.8 with none prior reported 2 days ago. Chest x-ray does show persistent nodular reticular changes in the right hemithorax without acute cardiopulmonary findings. Will hold off on further imaging as he is going to be transferred to [place]. However, due to elevation of white count and presence of segs, will start empiric treatment with antibiotics. Patient does appear more comfortable following the Dilaudid and is sleeping comfortably on exam table. As our facility is on diversion, [facility] we discussed transfer for further care and management. Family is agreeable, patient is a code level I. Dr. Dominguez at [facility] in [place] was consulted on this case and agreeable to further evaluating and managing this patient. He'll be transferred via ground EMS. Diagnostics: CBC, CMP, troponin, EKG, chest x-ray, UA Therapeutics: Zofran, Dilaudid, IV fluids, Rocephin 1g IV Impression: Failure to Thrive Dehydration Leukocytosis Plan: Transferred to [facility] in [place] per ground EMS Definitive disposition and diagnosis as appropriate pending reevaluation and review of above. - Related Data Allergies Allergy/AdvReac Type Severity Reaction Status Date / Time pseudoephedrine Allergy Shaking Verified 08/14/18 13:20 [From Sudafed] Home Meds: Home Meds Ondansetron [Zofran] 8 mg PO Q8H PRN 07/25/17 [History] Prochlorperazine Maleate 10 mg PO QID PRN 07/25/17 [History] Dexamethasone 8 mg PO BID #120 tablet 08/09/18 [Rx] Ranitidine 150 mg PO BID #60 tab 08/09/18 [Rx] Baclofen 5 mg PO TID PRN 08/14/18 [History] Cholecalciferol (Vitamin D3) [Vitamin D3] 1 cap PO DAILY 08/14/18 [History] Docusate Sodium [Colace] 100 mg PO DAILY PRN 08/14/18 [History] Mirtazapine [Remeron] 15 mg PO BEDTIME 08/14/18 [History] Omeprazole Magnesium [Prilosec Otc] 20 mg PO DAILY 08/14/18 [History] Zolpidem Tartrate [Ambien] 5 mg PO BEDTIME 08/14/18 [History] amLODIPine Besylate [Amlodipine Besylate] 5 mg PO DAILY 08/14/18 [History] Past Medical History HEENT History: Reports: None Other HEENT History: wears glasses, has top and bottom partial Cardiovascular History: Reports: None Respiratory History: Reports: None Gastrointestinal History: Reports: Bowel Obstruction Other Gastrointestinal History: recently in the hospital for small bowel obstruction Genitourinary History: Reports: None Musculoskeletal History: Reports: None, Arthritis Other Musculoskeletal History: hx fx ankle Neurological History: Reports: None Psychiatric History: Reports: Anxiety Endocrine/Metabolic History: Reports: Obesity/BMI 30+ Hematologic History: Reports: None Immunologic History: Reports: Immunosuppression Oncologic (Cancer) History: Reports: Esophageal Other Oncologic History: on chemotherapy, once every 3 weeks (pt with port for chemo). Mets Brain, BOne Dermatologic History: Reports: None - Infectious Disease History Infectious Disease History: Reports: None - Past Surgical History Head Surgeries/Procedures: Reports: None HEENT Surgical History: Reports: None Cardiovascular Surgical History: Reports: None Respiratory Surgical History: Reports: None GI Surgical History: Reports: Colonoscopy, EGD, Miguel Fundoplication Male Surgical History: Reports: None Endocrine Surgical History: Reports: None Neurological Surgical History: Reports: None Musculoskeletal Surgical History: Reports: None Oncologic Surgical History: Reports: None Dermatological Surgical History: Reports: None Social & Family History - Family History Family Medical History: Noncontributory - Tobacco Use Smoking Status *Q: Never Smoker Second Hand Smoke Exposure: No - Caffeine Use Caffeine Use: Reports: None - Recreational Drug Use Recreational Drug Use: No - Living Situation & Occupation Living situation: Reports: , with Spouse Occupation: Employed ED ROS GENERAL - Review of Systems Review Of Systems: ROS reveals no pertinent complaints other than HPI. ED EXAM, GENERAL - Physical Exam Exam: See Below (See dictation) Course - Vital Signs Last Recorded V/S: Last Vital Signs Temp 97.2 F 08/14/18 15:23 Pulse 75 08/14/18 15:23 Resp 16 08/14/18 15:23 BP 174/107 H 08/14/18 15:23 Pulse Ox 91 L 08/14/18 15:23 - Orders/Labs/Meds Orders: Active Orders 24 hr Category Date Time Status EKG Documentation Completion [RC] STAT Care 08/14/18 13:47 Active UA RFX VARGHESE AND CULT IF INDIC [URIN] Stat Lab 08/14/18 13:47 Ordered Sodium Chloride 0.9% [Normal Saline] 1,000 ml Med 08/14/18 15:14 Active IV ASDIRECTED Medication Orders Sodium Chloride (Normal Saline) 1,000 mls @ 150 mls/hr IV ASDIRECTED ONE Stop: 08/14/18 21:53 Last Admin: 08/14/18 15:14 Dose: 150 mls/hr Labs: Laboratory Tests 08/14/18 08/14/18 Range/Units 14:03 14:03 WBC 16.61 H (4.0-11.0) K/uL RBC 5.88 (4.50-5.90) M/uL Hgb 17.3 H (13.0-17.0) g/dL Hct 48.5 (38.0-50.0) % MCV 82.5 (80.0-98.0) fL MCH 29.4 (27.0-32.0) pg MCHC 35.7 (31.0-37.0) g/dL RDW Std Deviation 44.9 (28.0-62.0) fl RDW Coeff of Robb 15 (11.0-15.0) % Plt Count 140 L (150-400) K/uL MPV 10.50 (7.40-12.00) fL Add Manual Diff YES Neutrophils % (Manual) 83 H (48.0-80.0) % Band Neutrophils % 5 % Lymphocytes % (Manual) 9 L (16.0-40.0) % Monocytes % (Manual) 3 (0.0-15.0) % Nucleated RBC % 0.0 /100WBC Absolute Seg Neuts 13.8 H (1.4-5.7) Band Neutrophils # 0.8 Lymphocytes # (Manual) 1.5 (0.6-2.4) Monocytes # (Manual) 0.5 (0.0-0.8) Nucleated RBCs # 0 K/uL Sodium 131 L (136-148) mmol/L Potassium 4.2 (3.5-5.1) mmol/L Chloride 97 L (98-107) mmol/L Carbon Dioxide 24.7 (21.0-32.0) mmol/L BUN 28 H (7.0-18.0) mg/dL Creatinine 0.8 (0.8-1.3) mg/dL Est Cr Clr Drug Dosing 104.58 mL/min Estimated GFR (MDRD) > 60.0 ml/min Glucose 154 H (74-106) mg/dL Calcium 9.5 (8.5-10.1) mg/dL Total Bilirubin 1.5 H (0.2-1.0) mg/dL AST 97 H (15-37) IU/L ALT 46 (14-63) IU/L Alkaline Phosphatase 238 H (46-116) U/L Troponin I < 0.050 (0.000-0.056) ng/mL Total Protein 7.1 (6.4-8.2) g/dL Albumin 3.5 (3.4-5.0) g/dL Globulin 3.6 (2.6-4.0) g/dL Albumin/Globulin Ratio 1.0 (0.9-1.6) Meds: Medications Generic Name Dose Route Start Last Admin Trade Name Freq PRN Reason Stop Dose Admin Sodium Chloride 1,000 mls @ 150 mls/hr 08/14/18 15:14 08/14/18 15:14 Normal Saline IV 08/14/18 21:53 150 mls/hr ASDIRECTED ONE Administration Discontinued Medications Generic Name Dose Route Start Last Admin Trade Name Freq PRN Reason Stop Dose Admin Hydromorphone HCl 1 mg 08/14/18 13:45 08/14/18 14:04 Dilaudid IVPUSH 08/14/18 13:46 1 mg ONETIME ONE Administration Ceftriaxone Sodium/Dextrose 1 50 mls @ 100 mls/hr 08/14/18 14:54 08/14/18 15: 13 gm/ Premix IV 08/14/18 15:23 100 mls/hr ONETIME ONE Administration Ondansetron HCl 4 mg 08/14/18 13:45 08/14/18 14:04 Zofran IVPUSH 08/14/18 13:46 4 mg ONETIME ONE Administration Departure - Departure Time of Disposition: 14:50 Disposition: DC/Tfer to [facility] 02 Clinical Impression: Failure to thrive in adult, Dehydration, Leukocytosis, unspecified - Discharge Information Referrals: PCP,Unknown [Primary Care Provider] - Forms: ED Department Discharge - My Orders Last 24 Hours: My Active Orders 08/14/18 13:47 EKG Documentation Completion [RC] STAT UA RFX VARGHESE AND CULT IF INDIC [URIN] Stat 08/14/18 15:14 Sodium Chloride 0.9% [Normal Saline] 1,000 ml IV ASDIRECTED - Assessment/Plan Last 24 Hours: My Active Orders 08/14/18 13:47 EKG Documentation Completion [RC] STAT UA RFX VARGHESE AND CULT IF INDIC [URIN] Stat 08/14/18 15:14 Sodium Chloride 0.9% [Normal Saline] 1,000 ml IV ASDIRECTED
[2018-08-14 14:35] LABS: CHLORIDE,CL 97 mmol/L (98-107); SODIUM,NA 131 mmol/L (136-148)
[2018-08-14] MEDS ORDERED: cefTRIAXone 1 GM in Premix Bag 1 BAG IV ONE (14:54)
[2018-08-14] MEDS ORDERED: Sodium Chloride 0.9% 1,000 ML IV ONE (15:14)
--- NOTE | 2018-08-14 15:16 | CR ---
EXAMINATION: Portable chest radiograph. HISTORY: Shortness of breath. Comparison: 08/05/2018, 07/30/2018 FINDINGS: The trachea is midline. The cardiomediastinal silhouette is within normal limits. Persistent interstitial prominence and nodularity reticular changes noted within the right hemithorax. No pulmonary consolidations, effusions or pneumothorax. Left-sided isauro catheter is noted. Osseous structures appear unremarkable. IMPRESSION: 1. Persistent nodular to reticular changes within the right hemithorax without acute cardiopulmonary finding.
== END 2018-08-14 16:15 ==
LOC: MW.ED 13:16
DX: E86.0 Dehydration (principal); R62.7 Adult failure to thrive; D72.829 Elevated white blood cell count, unspecified; Z79.899 Other long term (current) drug therapy
CPT/HCPCS: 36415; 71045; 80053; 84484; 85025; 93005; 96365; 96375; 99285; J0696; J1170; J2405; J7040